=== PATIENT | male | born 1955 | race Caucasian/White ===

== ENCOUNTER 2016-08-26 16:06 | Inpatient (IN) | payer BC, OTHER ==
[~2016-08-26] VITALS: Ht 172.7 cm; Wt 90.7 kg
[~2016-08-26 16:06] MED LIST: CHERATUSSIN AC
[2016-08-26] MEDS ORDERED: ONDANSETRON INJ 2 MG/ML 2 ML VIAL IV STA (16:24)
[2016-08-26] MEDS ORDERED: PROMETHAZINE HCL INJ 6.25 MG in SODIUM CHLORIDE 0.9% 50ML 50 ML IV STA (16:24)
[2016-08-26] MEDS ORDERED: KETOROLAC TROMETHAMINE 30 MG/ML VIAL IV STA (16:24)
[2016-08-26] MEDS ORDERED: SODIUM CHLORIDE 0.9% 1000ML 2,000 ML IV STA (16:24)
[2016-08-26] MEDS: MoRPHine SULFATE 4 MG/ML 1 ML CARP\\VIAL IV PRN ×3 (16:34→21:26)
--- NOTE | 2016-08-26 16:35 | EMERGENCY ROOM VISIT NOTE ---
History Report prepared by Bartolo: Geovanny Juarez Under the Supervision of: Dr. Prince Massey M.D. First contact with patient: 16:20 Chief Complaint: REFERRED BY DOCTOR Stated Complaint: ABDOMINAL PAIN, VOMITING History of Present Illness The patient is a 61 year old male who presents to the Emergency Room with complaints of constant generalized abdominal pain beginning last night. He was seen at [facility] just prior to arrival for his symptoms and was referred to the ED for further evaluation. He also complains of vomiting which began this morning. The patient denies any diarrhea. He rates his pain as an 9/10 in severity. He has a history of similar symptoms occurring nine years ago, though the cause was not identified at the time. The patient notes that he has been around people with somewhat similar symptoms recently. He states that he ate "too much junk food" yesterday, but denies eating anything abnormal. The patient 's states that the patient's vomit appeared "like coffee-grounds". Source of History: patient Onset: last night Position: abdomen (generalized) Symptom Intensity: 9/10 Timing: constant Associated Symptoms: + vomiting, No diarrhea Review of Systems See HPI for pertinent positives & negatives. A total of 10 systems reviewed and were otherwise negative. Past Medical & Surgical Medical Problems: (1) Hyperlipemia Family History No pertinent family history stated. Social History Smoking Status: Former Smoker Marital Status: Current/Historical Medications No Active Prescriptions or Reported Meds Allergies Coded Allergies: Latex1 -Allergic Contact Dermititis (Verified Allergy, Unknown, RASH, 08/26) Physical Exam Vital Signs Date Time Temp Pulse Resp B/P Pulse Ox O2 Delivery O2 Flow Rate FiO2 08/26/16 18:49 56 20 115/68 97 Room Air 08/26/16 18:01 56 20 159/90 91 Room Air 08/26/16 16:16 67 18 164/102 95 Room Air Physical Exam GENERAL: Patient is in no acute distress. Vomit bag at bedside. HEENT: No acute trauma, normocephalic atraumatic, mucous membranes moist, no nasal congestion, no scleral icterus. NECK: No stridor, no adenopathy, no meningismus, trachea is midline. LUNGS: Clear to auscultation bilaterally, no wheeze, no rhonchi, breath sounds equal. HEART: Without murmurs gallops or rubs, regular rate and rhythm. ABDOMEN: Diffusely, moderately tender to palpation. Soft, bowel sounds positive , small nontender umbilical hernia, no peritonitis. EXTREMITIES: No cyanosis or edema, full range of motion of all the joints without pain or difficulty, no signs for acute trauma. NEUROLOGIC: Oriented x 3, no acute motor or sensory deficits, no focal weakness. SKIN: No rash, no jaundice, no diaphoresis. Medical Decision & Procedures ER Provider Diagnostic Interpretation: Gastric occult blood testing was negative. X ray results and stated below per my interpretation and radiologist interpretation. Other radiology results and stated below per my review and radiologist interpretation: PA CHEST WITH ABDOMINAL SERIES FINDINGS: A PA chest radiograph is correlated with chest CT dated 10/19/2010. The examination is degraded by patient rotation. The heart is enlarged. The mediastinal contour is within normal limits. The pulmonary vasculature is noncongested. There is chronic elevation of the right hemidiaphragm and bibasilar atelectasis. No airspace consolidation or large pleural effusion is identified. No pneumothorax is seen. The skeletal structures are osteopenic. The bony thorax is grossly intact. Supine and erect abdominal radiographs are correlated with abdominal ultrasound dated 10/18/2010. There is a nonobstructed abdominal bowel gas pattern. Moderate colonic fecal retention is observed. No intraperitoneal free air is seen. There are no abnormal abdominal calcifications. The lumbosacral spine and bony pelvis appear intact. IMPRESSION: 1. Cardiomegaly with no active disease in the chest. 2. Nonobstructed abdominal bowel gas pattern noting moderate colonic fecal retention. Electronically signed by: Prince Eastman M.D. ULTRASOUND RIGHT UPPER QUADRANT ABDOMEN FINDINGS: Liver: The liver is enlarged, measuring over 20 cm in length. Liver demonstrates heterogeneously increased echotexture consistent with severe hepatic steatosis. Note that this degrades acoustic penetration of the liver. Fatty sparing is present adjacent to gallbladder fossa. There is no intrahepatic biliary ductal dilatation. The main portal vein is patent. Gallbladder: Calcified shadowing gallstones are identified and there is biliary sludge. 1.2 cm stone is noted in the region of the gallbladder neck. There is no gallbladder wall thickening or pericholecystic fluid. A sonographic Khoury's sign is reportedly absent. The common bile duct measures up to 0.6 cm in diameter. Pancreas: Not well assessed due to overlying bowel gas. Right kidney: Survey images of the right kidney demonstrate normal size and echotexture. There is no hydronephrosis. Ascites: There is trace perihepatic fluid. IMPRESSION: 1. Hepatomegaly and severe hepatic steatosis. 2. Cholelithiasis and biliary sludge. There is no convincing sonographic evidence of acute cholecystitis. 3. Trace perihepatic fluid is noted. 4. Nonvisualization of the pancreas. Electronically signed by: Prince Eastman M.D. Laboratory Results 08/26/16 16:37 Red Blood Count 5.50, Mean Corpuscular Volume 90.2, Mean Corpuscular Hemoglobin 32.4, Mean Corpuscular Hemoglobin Concent 35.9, Mean Platelet Volume 9.2, Neutrophils (%) (Auto) 88.5, Lymphocytes (%) (Auto) 7.5, Monocytes (%) (Auto) 3.7, Eosinophils (%) (Auto) 0.0, Basophils (%) (Auto) 0.1, Neutrophils # (Auto) 10.96, Lymphocytes # (Auto) 0.93, Monocytes # (Auto) 0.46, Eosinophils # (Auto) 0.00, Basophils # (Auto) 0.01 08/26/16 16:37 Test 08/26/16 16:35 08/26/16 16:37 08/26/16 19:00 Gastric Fluid pH 2 Gastric Fluid Occult Blood NEG (NEG) White Blood Count 12.38 K/uL (4.8-10.8) Red Blood Count 5.50 M/uL (4.7-6.1) Hemoglobin 17.8 g/dL (14.0-18.0) Hematocrit 49.6 % (42-52) Mean Corpuscular Volume 90.2 fL (80-100) Mean Corpuscular Hemoglobin 32.4 pg (25-34) Mean Corpuscular Hemoglobin Concent 35.9 g/dl (32-36) Platelet Count 252 K/uL (130-400) Mean Platelet Volume 9.2 fL (7.4-10.4) Neutrophils (%) (Auto) 88.5 % Lymphocytes (%) (Auto) 7.5 % Monocytes (%) (Auto) 3.7 % Eosinophils (%) (Auto) 0.0 % Basophils (%) (Auto) 0.1 % Neutrophils # (Auto) 10.96 K/uL (1.4-6.5) Lymphocytes # (Auto) 0.93 K/uL (1.2-3.4) Monocytes # (Auto) 0.46 K/uL (0.11-0.59) Eosinophils # (Auto) 0.00 K/uL (0-0.5) Basophils # (Auto) 0.01 K/uL (0-0.2) RDW Standard Deviation 43.1 fL (36.4-46.3) RDW Coefficient of Variation 13.1 % (11.5-14.5) Immature Granulocyte % (Auto) 0.2 % Immature Granulocyte # (Auto) 0.02 K/uL (0.00-0.02) Anion Gap 10.0 mmol/L (3-11) Est Creatinine Clear Calc Drug Dose 77.1 ml/min Estimated GFR () 83.5 Estimated GFR (Non- 72.1 BUN/Creatinine Ratio 12.5 (10-20) Calcium Level 9.3 mg/dl (8.5-10.1) Total Bilirubin 1.6 mg/dl (0.2-1) Aspartate Amino Transf (AST/SGOT) 413 U/L (15-37) Alanine Aminotransferase (ALT/SGPT) 760 U/L (12-78) Alkaline Phosphatase 90 U/L (45-117) Total Protein 7.9 gm/dl (6.4-8.2) Albumin 4.3 gm/dl (3.4-5.0) Globulin 3.6 gm/dl (2.5-4.0) Albumin/Globulin Ratio 1.2 (0.9-2) Lipase 70178 U/L (73-393) Laboratory results reviewed by me. Medications Administered Medications (Trade) Dose Ordered Sig/Nbaila Route Start Time Stop Time Status Last Admin Dose Admin Sodium Chloride (Nss 1000ml) 2,000 ml @ 999 mls/hr Q2H1M STAT IV 08/26/16 16:24 08/26/16 18:24 DC 08/26/16 16:35 999 MLS/HR Ondansetron HCl (Zofran Inj) 4 mg NOW STAT IV 08/26/16 16:24 08/26/16 16:26 DC 08/26/16 16:34 4 MG Morphine Sulfate (MoRPHine SULFATE INJ) 4 mg Q30M PRN IV 08/26/16 16:30 09/09/16 16:29 08/26/16 18:12 4 MG Ketorolac Tromethamine 30 mg 30 mg NOW STAT IV 08/26/16 16:24 08/26/16 16:26 DC 08/26/16 16:35 30 MG Promethazine HCl/ Sodium Chloride (Phenergan Inj/ Nss 50ml) 50.25 ml @ 204 mls/hr NOW STAT IV 08/26/16 16:24 08/26/16 16:38 DC 08/26/16 16:51 204 MLS/HR ED Course 1622: The patient was evaluated in room A9B. A complete history and physical exam was performed. 1624: Ordered Promethazine HCl 6.25 mg/NSS 50.25 mL @ 204 mL/hr IV, Toradol Inj 30 mg IV, Zofran Inj 4 mg IV, Sodium Chloride 2000 ml @ 999 mls/hr IV, Morphine Sulfate 4 mg IV. 1643: Upon reexamination the patient is resting comfortably. I discussed results and treatment plan with the patient. He verbalizes agreement and understanding. 1948: The patient will be evaluated for further management. Medical Decision The patient is a 61 year old male who presents to the ED with complaints of generalized abdominal pain. Differential diagnoses considered include upper GI bleeding, dehydration, anemia, electrolyte imbalance, gastroenteritis, pancreatitis, biliary colic, esophageal tear, as well as other etiologies were considered. There is a mild leukocytosis which would be consistent with infection, no worrisome anemia. Gastric testing for blood as per the lab was negative. There was no evidence for renal failure or for significant electrolyte abnormally. A hepatitis and pancreatitis were noted. Obstruction series shows no bowel obstruction or free air, there was no pneumonia. Constipation was seen. Gallbladder ultrasound shows gallstones, there were no findings consistent with acute cholecystitis. The patient presents vomiting with diffuse abdominal pain. He received IV morphine, IV Zofran, IV Toradol and IV Phenergan. He was given IV saline. He feels markedly improved. The patient is resting comfortably. I did discuss this case with the on-call surgeon. The surgeon recommended a medical admission. I talked to the on-call medical physician. The patient will be hospitalized. I spoke with case management, I talked about my results with the patient and his significant other. The patient appears to have gallstone pancreatitis. Consults Time Called: 1940 Consulting Physician: Dr. Main -General Surgery Returned Call: 1942 Discussed the patient's case. Dr. Main recommends the patient be admitted to the medicine service. Additional Consults: Time Called: 1944 Consulted Physician: Dr. De La Vega -[facility] [place] Returned Call: 1948 Additional Comments: Discussed the patient's case. The patient will be evaluated for further management. Impression Primary Impression: Pancreatitis Additional Impressions: Biliary colic Vomiting Scribe Attestation The scribe's documentation has been prepared under my direction and personally reviewed by me in its entirety. I confirm that the note above accurately reflects all work, treatment, procedures, and medical decision making performed by me. Departure Information Dispostion Being Evaluated By Hospitalist Prescriptions No Active Prescriptions or Reported Meds Referrals No Doctor, Assigned (PCP) Patient Instructions My [facility] Problem Qualifiers
[2016-08-26 16:51] LABS: BASO % 0.1 %; BASO ABS # 0.01 K/uL (0-0.2); COMPLETE YES; HEMATOCRIT 49.6 % (42-52); IG% 0.2 %; LYMPH % 7.5 %; LYMPH ABS # 0.93 K/uL (1.2-3.4); MEAN CELL VOLUME 90.2 fL (80-100); MEAN CORPUSCULAR HEMOGLOBIN 32.4 pg (25-34); MEAN CORPUSCULAR HGB CONC 35.9 g/dl (32-36); MEAN PLATELET VOLUME 9.2 fL (7.4-10.4); MONO % 3.7 %; NEUT % 88.5 %; PLATELET COUNT 252 K/uL (130-400); WHITE BLOOD COUNT 12.38 K/uL (4.8-10.8)
[2016-08-26 16:54] LABS: GASTRIC OCCULT BLOOD NEG (NEG); GASTRIC OCCULT BLOOD PH 2
[2016-08-26 17:09] LABS: BUN/CREATININE RATIO 12.5 (10-20); CALCIUM 9.3 mg/dl (8.5-10.1); CREATININE 1.1 mg/dl (0.60-1.40); POTASSIUM 4.1 mmol/L (3.5-5.1)
[2016-08-26 17:12] LABS: ALB/GLOB RATIO 1.2 (0.9-2)
--- NOTE | 2016-08-26 17:36 | DIAGNOSTIC IMAGING REPORT ---
PA CHEST WITH ABDOMINAL SERIES CLINICAL HISTORY: Generalized abdominal pain. Nausea and vomiting. FINDINGS: A PA chest radiograph is correlated with chest CT dated 10/19/2010. The examination is degraded by patient rotation. The heart is enlarged. The mediastinal contour is within normal limits. The pulmonary vasculature is noncongested. There is chronic elevation of the right hemidiaphragm and bibasilar atelectasis. No airspace consolidation or large pleural effusion is identified. No pneumothorax is seen. The skeletal structures are osteopenic. The bony thorax is grossly intact. Supine and erect abdominal radiographs are correlated with abdominal ultrasound dated 10/18/2010. There is a nonobstructed abdominal bowel gas pattern. Moderate colonic fecal retention is observed. No intraperitoneal free air is seen. There are no abnormal abdominal calcifications. The lumbosacral spine and bony pelvis appear intact. IMPRESSION: 1. Cardiomegaly with no active disease in the chest. 2. Nonobstructed abdominal bowel gas pattern noting moderate colonic fecal retention. Electronically signed by: Prince Eastman M.D. 08/26/2016 5:34 PM Dictated Date/Time: 08/26/2016 5:32 PM
--- NOTE | 2016-08-26 19:38 | DIAGNOSTIC IMAGING REPORT ---
ULTRASOUND RIGHT UPPER QUADRANT ABDOMEN CLINICAL HISTORY: Hepatitis. Vomiting. COMPARISON STUDY: Abdominal radiograph dated 08/26/2016. Abdominal ultrasound dated 10/18/2010. TECHNIQUE: Real-time, grayscale, and color flow sonography of the right upper quadrant of the abdomen was performed. Images are reviewed in the transverse and longitudinal planes. FINDINGS: Liver: The liver is enlarged, measuring over 20 cm in length. Liver demonstrates heterogeneously increased echotexture consistent with severe hepatic steatosis. Note that this degrades acoustic penetration of the liver. Fatty sparing is present adjacent to gallbladder fossa. There is no intrahepatic biliary ductal dilatation. The main portal vein is patent. Gallbladder: Calcified shadowing gallstones are identified and there is biliary sludge. 1.2 cm stone is noted in the region of the gallbladder neck. There is no gallbladder wall thickening or pericholecystic fluid. A sonographic Khoury's sign is reportedly absent. The common bile duct measures up to 0.6 cm in diameter. Pancreas: Not well assessed due to overlying bowel gas. Right kidney: Survey images of the right kidney demonstrate normal size and echotexture. There is no hydronephrosis. Ascites: There is trace perihepatic fluid. IMPRESSION: 1. Hepatomegaly and severe hepatic steatosis. 2. Cholelithiasis and biliary sludge. There is no convincing sonographic evidence of acute cholecystitis. 3. Trace perihepatic fluid is noted. 4. Nonvisualization of the pancreas. Electronically signed by: Prince Eastman M.D. 08/26/2016 7:37 PM Dictated Date/Time: 08/26/2016 7:34 PM
[2016-08-26] MEDS ORDERED: PIPERACILLIN/TAZOBACTAM 4.5 GM/100ML D5W IV STA (19:49)
[2016-08-26] MEDS ORDERED: PROMETHAZINE HCL INJ 12.5 MG in SODIUM CHLORIDE 0.9% 50ML 50 ML IV PRN (20:00)
[2016-08-26] MEDS ORDERED: LORAZEPAM 2 MG/ML 1 ML VIAL IV PRN (20:00)
[2016-08-26] MEDS ORDERED: ZOLPIDEM TARTRATE 5 MG TAB PO PRN ×2 (20:00)
[2016-08-26] MEDS ORDERED: ACETAMINOPHEN 325 MG TAB PO PRN (20:00)
[2016-08-26] MEDS ORDERED: DiphenhydrAMINE HCL 50 MG/ML VIAL IV PRN (20:00)
[2016-08-26] MEDS ORDERED: LORAZEPAM 2 MG/ML 1 ML VIAL IV STA (20:04)
[2016-08-26 20:07] LABS: MANUAL MICROSCOPIC REQUIRED? YES; URINE APPEARANCE CLOUDY (CLEAR); URINE COLOR YELLOW; URINE NITRITE NEG (NEG); URINE PH 5.5 (4.5-7.5); URINE SPECIFIC GRAVITY >= 1.030 (1.000-1.030); UROBILINOGEN NEG (NEG)
[2016-08-26 20:13] LABS: REVIEW REQ? NO; URINE BILIRUBIN 1+ (NEG)
[2016-08-26] MEDS ORDERED: PROMETHAZINE HCL INJ 25 MG in SODIUM CHLORIDE 0.9% 50ML 50 ML IV PRN (20:15)
[2016-08-26 20:19] LABS: URINE RBC 0-4 /hpf (0-4)
[2016-08-26 20:20] LABS: URINE BACTERIA NEG (NEG); ZZUR CULT IF INDIC CLEAN CATCH NO
--- NOTE | 2016-08-26 20:53 | History and Physical ---
History & Physical Date & Time of Service: Aug 26, 2016 at 20:43 Chief Complaint: Abdominal Pain, Vomiting Primary Care Physician: No Doctor, Assigned History of Present Illness Source: patient, spouse The patient is a 61-year-old male who presents emergency department with continuous generalized abdominal pain that began on the morning of August 25. Because of worsening symptoms today, the patient went to [facility], who referred him to the emergency department for further evaluation. He began it additional symptoms of nausea and vomiting this morning, and has not been able to hold any food or liquids down during this time. His reports he had similar symptoms about 4-5 years ago, and thought there may been gallstones at that time, but they were not clearly identified as a cause. He has not had any recent travels. He has had some sick contacts recently. Initially thought to eat too much junk food yesterday, but does not report having eaten anything different than usual or eaten anything old or anything else that actually turgor is symptoms. Past Medical/Surgical History Medical Problems: (1) Hyperlipemia Status: Chronic Social History Smoking Status: Former Smoker Smokeless Tobacco Use: No Alcohol Use: none Drug Use: none Marital Status: Housing status: lives with family Occupational Status: employed Multi-Drug Resistant Organisms History of MDRO: No Allergies Coded Allergies: Latex1 -Allergic Contact Dermititis (Verified Allergy, Unknown, RASH, 08/26) Home Medications No Active Prescriptions or Reported Meds Review of Systems The patient denies chest pain, palpitations, shortness of breath, cough, lower extremity swelling, vision change, hearing change, sore throat, weight change, blood in urine or stool, dysuria, urinary frequency or urgency, lightheadedness , dizziness, headache, memory loss, rash, abnormal bruising or bleeding, imbalance, focal or generalized weakness, numbness or tingling in arms or legs, back or neck pain, night sweats, or allergy symptoms. The review of systems is otherwise negative other than for that already noted above, and at least 10 systems have been reviewed. Physical Exam Vital Signs Date Time Temp Pulse Resp B/P Pulse Ox O2 Delivery O2 Flow Rate FiO2 08/26/16 18:49 56 20 115/68 97 Room Air 08/26/16 18:01 56 20 159/90 91 Room Air 08/26/16 16:16 67 18 164/102 95 Room Air The patient is awake, well-developed and adequately nourished, alert and oriented 3, normocephalic and atraumatic, lying in bed and in mild acute distress secondary to abdominal discomfort. HEENT--PERRL, EOMI, mucous membranes and oropharynx dry. Neck--supple, no JVD or bruits, thyroid normal, trachea midline, no adenopathy. Heart--normal S1 and S2, no extra beats, no murmurs, rubs or gallops. Lungs--clear bilaterally, no respiratory distress, no accessory muscle use. Abdomen--normal bowel sounds and soft, generalized tenderness. Extremities--no cyanosis, clubbing or edema. There are good distal pulses b/l. Dermatologic--normal skin turgor, normal color, warm and dry, no abnormal lymph nodes, no rash. Neurologic--cranial nerves II through XII grossly intact, motor and sensory examination normal. Rheumatologic--normal range of motion, nontender, muscles and joints. Psychiatric--normal affect. Diagnostics Laboratory Results Results Past 24 Hours Test 08/26/16 16:35 08/26/16 16:37 08/26/16 19:00 Range/Units Gastric Fluid pH 2 Gastric Fluid Occult Blood NEG NEG White Blood Count 12.38 4.8-10.8 K/uL Red Blood Count 5.50 4.7-6.1 M/uL Hemoglobin 17.8 14.0-18.0 g/dL Hematocrit 49.6 42-52 % Mean Corpuscular Volume 90.2 80-100 fL Mean Corpuscular Hemoglobin 32.4 25-34 pg Mean Corpuscular Hemoglobin Concent 35.9 32-36 g/dl Platelet Count 252 130-400 K/uL Mean Platelet Volume 9.2 7.4-10.4 fL Neutrophils (%) (Auto) 88.5 % Lymphocytes (%) (Auto) 7.5 % Monocytes (%) (Auto) 3.7 % Eosinophils (%) (Auto) 0.0 % Basophils (%) (Auto) 0.1 % Neutrophils # (Auto) 10.96 1.4-6.5 K/uL Lymphocytes # (Auto) 0.93 1.2-3.4 K/uL Monocytes # (Auto) 0.46 0.11-0.59 K/uL Eosinophils # (Auto) 0.00 0-0.5 K/uL Basophils # (Auto) 0.01 0-0.2 K/uL RDW Standard Deviation 43.1 36.4-46.3 fL RDW Coefficient of Variation 13.1 11.5-14.5 % Immature Granulocyte % (Auto) 0.2 % Immature Granulocyte # (Auto) 0.02 0.00-0.02 K/uL Sodium Level 141 136-145 mmol/L Potassium Level 4.1 3.5-5.1 mmol/L Chloride Level 102 98-107 mmol/L Carbon Dioxide Level 29 21-32 mmol/L Anion Gap 10.0 3-11 mmol/L Blood Urea Nitrogen 14 7-18 mg/dl Creatinine 1.10 0.60-1.40 mg/dl Est Creatinine Clear Calc Drug Dose 77.1 ml/min Estimated GFR () 83.5 Estimated GFR (Non- 72.1 BUN/Creatinine Ratio 12.5 10-20 Random Glucose 192 70-99 mg/dl Calcium Level 9.3 8.5-10.1 mg/dl Total Bilirubin 1.6 0.2-1 mg/dl Aspartate Amino Transf (AST/SGOT) 413 15-37 U/L Alanine Aminotransferase (ALT/SGPT) 760 12-78 U/L Alkaline Phosphatase 90 45-117 U/L Total Protein 7.9 6.4-8.2 gm/dl Albumin 4.3 3.4-5.0 gm/dl Globulin 3.6 2.5-4.0 gm/dl Albumin/Globulin Ratio 1.2 0.9-2 Amylase Level 1146 25-115 U/L Lipase 86913 73-393 U/L Urine Color YELLOW Urine Appearance CLOUDY CLEAR Urine pH 5.5 4.5-7.5 Urine Specific [place] >= 1.030 1.000-1.030 Urine Protein TRACE NEG Urine Glucose (UA) TRACE NEG Urine Ketones NEG NEG Urine Occult Blood NEG NEG Urine Nitrite NEG NEG Urine Bilirubin 1+ NEG Urine Urobilinogen NEG NEG Urine Leukocyte Esterase NEG NEG Urine RBC 0-4 0-4 /hpf Urine WBC 1-5 0-5 /hpf Urine Epithelial Cells >30 0-5 /lpf Urine Bacteria NEG NEG Urine Hyaline Casts 5-10 0-5 /lpf Diagnostic Radiology Patient Name: CATHY RODRIGUEZ Jing Unit Number: [id number] Dictated: 08/26/161731 Transcribed: 08/26/161731 EV Printed Date/Time: [~ rep prt dt]/[~ rep prt tm] [~ rep ct labl] - [~ rep ct ivnm] [facility] [place] [address] Dictated: 08/26/161731 Transcribed: 08/26/161731 EV Printed Date/Time: [~ rep prt dt]/[~ rep prt tm] [~ rep ct labl] - [~ rep ct ivnm] PA CHEST WITH ABDOMINAL SERIES CLINICAL HISTORY: Generalized abdominal pain. Nausea and vomiting. FINDINGS: A PA chest radiograph is correlated with chest CT dated 10/19/2010. The examination is degraded by patient rotation. The heart is enlarged. The mediastinal contour is within normal limits. The pulmonary vasculature is noncongested. There is chronic elevation of the right hemidiaphragm and bibasilar atelectasis. No airspace consolidation or large pleural effusion is identified. No pneumothorax is seen. The skeletal structures are osteopenic. The bony thorax is grossly intact. Supine and erect abdominal radiographs are correlated with abdominal ultrasound dated 10/18/2010. There is a nonobstructed abdominal bowel gas pattern. Moderate colonic fecal retention is observed. No intraperitoneal free air is seen. There are no abnormal abdominal calcifications. The lumbosacral spine and bony pelvis appear intact. IMPRESSION: 1. Cardiomegaly with no active disease in the chest. 2. Nonobstructed abdominal bowel gas pattern noting moderate colonic fecal retention. Electronically signed by: Prince Eastman M.D. 08/26/2016 5:34 PM Dictated Date/Time: 08/26/2016 5:32 PM The status of this report is Signed. Draft = Not yet reviewed or approved by Radiologist. Signed = Reviewed and approved by Radiologist. <AttendingPhy></AttendingPhy> <FamilyPhy>No Doctor, Assigned</FamilyPhy> < PrimaryPhy>No Doctor, Assigned</PrimaryPhy> <UnitNumber>[id number]</UnitNumber> <VisitNumber>[id number]</VisitNumber> <PatientName>CATHY RODRIGUEZ</ PatientName> <DateOfBirth>1955</DateOfBirth> <Location>[facility]</Location> < ServiceDate>08/26/16</ServiceDate> <MNE>ESINDI</MNE> <OrderingPhy>Prince Massey M.D.</OrderingPhy> <OrderingPhyMNE>f rep ord dr bronson</OrderingPhyMNE> < DictatingPhyMNE>f rep dict dr bronson</DictatingPhyMNE> <CCListMNE>f rep ct mne</ CCListMNE> <AdmittingPhyMNE>f pt admit dr bronson</AdmittingPhyMNE> <AttendingPhyMNE >f pt attend dr bronson</AttendingPhyMNE> <ConsultingPhyMNE>f pt consult dr bronson</ConsultingPhyMNE> <FamilyPhyMNE>f pt fam dr bronson</FamilyPhyMNE> <OtherPhyMNE>f pt other dr bronson</OtherPhyMNE> < PrimaryPhyMNE>f pt prim care dr bronson</PrimaryPhyMNE> <ReferringPhyMNE>f pt referring dr bronson</ReferringPhyMNE> Patient Name: CATHY RODRIGUEZ Unit Number: [id number] Dictated: 08/26/161933 Transcribed: 08/26/161933 EV Printed Date/Time: [~ rep prt dt]/[~ rep prt tm] [~ rep ct labl] - [~ rep ct ivnm] [facility] Radiology Department [place] [id number] Dictated: 08/26/161933 Transcribed: 08/26/161933 EV Printed Date/Time: [~ rep prt dt]/[~ rep prt tm] [~ rep ct labl] - [~ rep ct ivnm] ULTRASOUND RIGHT UPPER QUADRANT ABDOMEN CLINICAL HISTORY: Hepatitis. Vomiting. COMPARISON STUDY: Abdominal radiograph dated 08/26/2016. Abdominal ultrasound dated 10/18/2010. TECHNIQUE: Real-time, grayscale, and color flow sonography of the right upper quadrant of the abdomen was performed. Images are reviewed in the transverse and longitudinal planes. FINDINGS: Liver: The liver is enlarged, measuring over 20 cm in length. Liver demonstrates heterogeneously increased echotexture consistent with severe hepatic steatosis. Note that this degrades acoustic penetration of the liver. Fatty sparing is present adjacent to gallbladder fossa. There is no intrahepatic biliary ductal dilatation. The main portal vein is patent. Gallbladder: Calcified shadowing gallstones are identified and there is biliary sludge. 1.2 cm stone is noted in the region of the gallbladder neck. There is no gallbladder wall thickening or pericholecystic fluid. A sonographic Khoury's sign is reportedly absent. The common bile duct measures up to 0.6 cm in diameter. Pancreas: Not well assessed due to overlying bowel gas. Right kidney: Survey images of the right kidney demonstrate normal size and echotexture. There is no hydronephrosis. Ascites: There is trace perihepatic fluid. IMPRESSION: 1. Hepatomegaly and severe hepatic steatosis. 2. Cholelithiasis and biliary sludge. There is no convincing sonographic evidence of acute cholecystitis. 3. Trace perihepatic fluid is noted. 4. Nonvisualization of the pancreas. Electronically signed by: Prince Eastman M.D. 08/26/2016 7:37 PM Dictated Date/Time: 08/26/2016 7:34 PM The status of this report is Signed. Draft = Not yet reviewed or approved by Radiologist. Signed = Reviewed and approved by Radiologist. <AttendingPhy></AttendingPhy> <FamilyPhy>No Doctor, Assigned</FamilyPhy> < PrimaryPhy>No Doctor, Assigned</PrimaryPhy> <UnitNumber>[id number]</UnitNumber> <VisitNumber>[id number]</VisitNumber> <PatientName>CATHY RODRIGUEZ</ PatientName> <DateOfBirth>1955</DateOfBirth> <Location>[facility]</Location> < ServiceDate>08/26/16</ServiceDate> <MNE>ESINDI</MNE> <OrderingPhy>Prince Massey M.D.</OrderingPhy> <OrderingPhyMNE>f rep ord dr bronson</OrderingPhyMNE> < DictatingPhyMNE>f rep dict dr bronson</DictatingPhyMNE> <CCListMNE>f rep ct juane</ CCListMNE> <AdmittingPhyMNE>f pt admit dr bronson</AdmittingPhyMNE> <AttendingPhyMNE >f pt attend dr bronson</AttendingPhyMNE> <ConsultingPhyMNE>f pt consult dr bronson</ConsultingPhyMNE> <FamilyPhyMNE>f pt fam dr bronson</FamilyPhyMNE> <OtherPhyMNE>f pt other dr bronson</OtherPhyMNE> < PrimaryPhyMNE>f pt prim care dr bronson</PrimaryPhyMNE> <ReferringPhyMNE>f pt referring dr bronson</ReferringPhyMNE> Impression Assessment and Plan Gallstone pancreatitis--patient be admitted to the medical surgical floor in nothing by mouth status. Will be placed on Zosyn 4.5 g IV now, then 3.375 g IV every 8 hours, Zofran 4 mg IV every 6 hours when necessary, Phenergan 25 mg IV every 6 hours when necessary, pantoprazole 40 mg IV daily, normal saline with potassium chloride 20 mEq at 100 ML's per hour. Morphine sulfate 2-4 mg IV every 4 hours when necessary pain. We'll follow serial CBCD, CMP, and amylase and lipase. An MRCP is ordered and will be done tonight. Surgery will be consulted to see patient. Level of Care Med/Surg Advanced Directives Existing Advance Directive: No Existing Living Will: No Existing Power of Construction Assistant: No Resuscitation Status FULL RESUSCITATION VTE Prophylaxis VTE Risk Assessment Done? Y/N: Yes Risk Level: Moderate Given or contraindicated: SCD's Social Service Consult None Apply
[2016-08-26] MEDS ORDERED: PIPERACILL/TAZOBAC CONSULT ACTIVE PRN (21:45)
[2016-08-26 22:35] VITALS: BP 157/81; TEMP 36.8; O2SAT 96; Ht 172.7 cm; Wt 90.7 kg
[2016-08-26 22:40] VITALS: BP 157/81; PULSE 66; TEMP 36.8; O2SAT 91
--- NOTE | 2016-08-26 22:49 | DIAGNOSTIC IMAGING REPORT ---
MRCP CLINICAL HISTORY: Hepatitis. COMPARISON STUDY: Abdominal ultrasound dated 08/26/2016. TECHNIQUE: Abdominal MRCP is performed utilizing various T2-weighted sequences in the axial and coronal planes. IV contrast was not administered for this examination. 3-D reformats are created and assessed. FINDINGS: Gallstones are identified. The largest stone is seen in the region of the gallbladder neck. The gallbladder is distended. There is no gallbladder wall thickening or pericholecystic fluid. There is no definitive evidence of acute cholecystitis. There is no intrahepatic biliary ductal dilatation. The common bile duct is normal in caliber, measuring up to 5 mm. There are no filling defects to indicate choledocholithiasis. The pancreatic duct is normal as visualized. The liver is enlarged measuring 19 cm in length. There is trace perihepatic free fluid. The pancreas appears enlarged and markedly edematous. There is significant peripancreatic fluid. The appearance is consistent with acute pancreatitis. The spleen is normal as imaged. The kidneys are normal in size and without hydronephrosis. The adrenal glands are normal as visualized. A 12 mm cyst is noted in the left lobe of the liver. Mild wall thickening is suggested in the duodenum, likely related to adjacent pancreatitis. IMPRESSION: 1. Findings are consistent with severe acute pancreatitis. 2. Cholelithiasis without convincing evidence of acute cholecystitis. 3. The liver appears enlarged and there is trace perihepatic ascites. 4. There is no intrahepatic or extrahepatic biliary ductal dilatation. There is no choledocholithiasis. Dictated: 08/26/2016 10:33 PM Transcribed: 08/26/2016 10:49 PM [email or web address] Electronically signed by: Prince Eastman M.D. 08/26/2016 10:50 PM Dictated Date/Time: 08/26/2016 10:33 PM
[2016-08-26] MEDS: NSS + 20MEQ KCL 1000ML 1,000 ML IV SCH (23:09)
[2016-08-27] MEDS: MoRPHine SULFATE 2 MG/ML CARP IV PRN ×4 (00:40→19:19)
[2016-08-27] MEDS ORDERED: PIPERACILL/TAZOBAC IV 3.375 GM in DEXTROSE 5% 100ML 100 ML IV SCH (02:00)
[2016-08-27 05:36] LABS: BASO % 0.1 %; BASO ABS # 0.01 K/uL (0-0.2); COMPLETE YES; HEMATOCRIT 44.7 % (42-52); IG% 0.3 %; LYMPH % 5.4 %; LYMPH ABS # 0.77 K/uL (1.2-3.4); MEAN CELL VOLUME 90.3 fL (80-100); MEAN CORPUSCULAR HEMOGLOBIN 31.1 pg (25-34); MEAN CORPUSCULAR HGB CONC 34.5 g/dl (32-36); MEAN PLATELET VOLUME 9.1 fL (7.4-10.4); MONO % 5.4 %; NEUT % 88.8 %; PLATELET COUNT 204 K/uL (130-400); RED BLOOD COUNT 4.95 M/uL (4.7-6.1); WHITE BLOOD COUNT 14.25 K/uL (4.8-10.8)
[2016-08-27 05:50] LABS: INR 1.1 (0.9-1.1); PROTHROMBIN TIME (PATIENT) 11.8 SECONDS (9.0-12.0)
[2016-08-27 06:10] LABS: BUN/CREATININE RATIO 11.2 (10-20); CALCIUM 8.1 mg/dl (8.5-10.1); CREATININE 1.1 mg/dl (0.60-1.40); MAGNESIUM 1.9 mg/dl (1.8-2.4); POTASSIUM 3.7 mmol/L (3.5-5.1)
[2016-08-27 07:48] VITALS: BP 166/76; PULSE 94; TEMP 36.8; O2SAT 94
[2016-08-27] MEDS: NSS + 20MEQ KCL 1000ML 1,000 ML IV SCH ×4 (08:28→23:28)
[2016-08-27] MEDS: PANTOprazole INJ 40 MG in SYRINGE 0 ML IV SCH (11:05)
--- NOTE | 2016-08-27 11:44 | Progress Note ---
Subjective Date of Service: Aug 27, 2016. Subjective Pt evaluation today including: conversation w/ patient, conversation w/ family , physical exam, lab review, review of studies, review of inpatient medication list Pain: epigastric, still moderate to severe PO Intake: NPO Voiding: no voiding problems patient started with the epigastric pain yesterday at 1pm, got more severe with nausea feels slightly better this morning, very tired, no appetite denies feeling nauseated, last BM was Sunday and was normal reviewed results of MRCP and labs this AM significant other updated at the bedside Problem List Medical Problems: (1) Biliary colic Status: Acute (2) Pancreatitis Status: Acute (3) Vomiting Status: Acute Review of Systems Constitutional: + fatigue, + weakness Abdomen: + nausea, + pain (epigastric, severe), + problem reported (no appetite ) All Other Systems: Reviewed and Negative Medications Current Inpatient Medications Medications (Trade) Dose Ordered Sig/Nabila Route Start Time Stop Time Status Last Admin Dose Admin Acetaminophen (Tylenol Tab) 650 mg Q4H PRN PO 08/26/16 20:00 09/25/16 19:59 Zolpidem Tartrate (Ambien Tab) 5 mg HSZ PRN PO 08/26/16 20:00 09/25/16 19:59 Lorazepam (Ativan Inj) 0.5 mg Q4H PRN IV 08/26/16 20:00 09/25/16 19:59 Diphenhydramine HCl 25 mg 25 mg Q4H PRN IV 08/26/16 20:00 09/25/16 19:59 Promethazine HCl/ Sodium Chloride (Phenergan Inj/ Nss 50ml) 50.5 ml @ 202 mls/hr Q4H PRN IV 08/26/16 20:00 09/25/16 19:59 Ondansetron HCl (Zofran Inj) 4 mg Q6H PRN IV 08/26/16 20:00 09/25/16 19:59 Morphine Sulfate (MoRPHine SULFATE INJ) 2 mg Q2H PRN IV 08/26/16 20:00 09/09/16 19:59 08/27/16 00:40 2 MG Morphine Sulfate 4 mg 4 mg Q2H PRN IV 08/26/16 20:00 09/09/16 19:59 Potassium Chloride/Sodium Chloride 1,000 ml @ 200 mls/hr Q5H IV 08/26/16 23:00 09/26/16 22:59 08/27/16 08:28 200 MLS/HR Pantoprazole Sodium 40 mg/ Syringe 10 ml @ 5 mls/min DAILY@11 IV 08/27/16 11:00 09/26/16 10:59 08/27/16 11:05 5 MLS/MIN Promethazine HCl/ Sodium Chloride (Phenergan Inj/ Nss 50ml) 51 ml @ 204 mls/hr Q6H PRN IV 08/26/16 20:15 09/25/16 20:14 08/27/16 01:19 204 MLS/HR Objective Vital Signs Date Time Temp Pulse Resp B/P Pulse Ox O2 Delivery O2 Flow Rate FiO2 08/27/16 07:48 36.8 94 16 166/76 94 Room Air 08/27/16 07:33 Room Air 08/26/16 22:40 36.8 66 16 157/81 91 Room Air 08/26/16 22:35 36.8 16 157/81 96 Room Air 08/26/16 20:45 60 20 140/82 96 Room Air 08/26/16 18:49 56 20 115/68 97 Room Air 08/26/16 18:01 56 20 159/90 91 Room Air 08/26/16 16:16 67 18 164/102 95 Room Air Physical Exam General Appearance: WD/WN, no apparent distress Eyes: normal inspection, EOMI, sclerae normal ENT: normal ENT inspection, hearing grossly normal, pharynx normal Neck: supple, no adenopathy, no JVD, trachea midline Respiratory/Chest: chest non-tender, lungs clear, normal breath sounds, no respiratory distress, no accessory muscle use Cardiovascular: regular rate, rhythm, no edema, no gallop, no JVD, no murmur Abdomen: soft, no organomegaly, + abnormal bowel sounds (hypoactive), + tenderness (epigastric, no rigidity or rebound, no bruising) Extremities: normal range of motion, non-tender, normal inspection, no pedal edema, no calf tenderness 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: workforce manager II-XII nml as tested, no motor/sensory deficits, alert, normal mood/affect, oriented x 3 Skin: normal color, warm/dry, no rash Laboratory Results Last 24 Hours Test 08/26/16 16:35 08/26/16 16:37 08/26/16 19:00 08/27/16 05:05 Gastric Fluid pH 2 Gastric Fluid Occult Blood NEG White Blood Count 12.38 K/uL 14.25 K/uL Red Blood Count 5.50 M/uL 4.95 M/uL Hemoglobin 17.8 g/dL 15.4 g/dL Hematocrit 49.6 % 44.7 % Mean Corpuscular Volume 90.2 fL 90.3 fL Mean Corpuscular Hemoglobin 32.4 pg 31.1 pg Mean Corpuscular Hemoglobin Concent 35.9 g/dl 34.5 g/dl Platelet Count 252 K/uL 204 K/uL Mean Platelet Volume 9.2 fL 9.1 fL Neutrophils (%) (Auto) 88.5 % 88.8 % Lymphocytes (%) (Auto) 7.5 % 5.4 % Monocytes (%) (Auto) 3.7 % 5.4 % Eosinophils (%) (Auto) 0.0 % 0.0 % Basophils (%) (Auto) 0.1 % 0.1 % Neutrophils # (Auto) 10.96 K/uL 12.66 K/uL Lymphocytes # (Auto) 0.93 K/uL 0.77 K/uL Monocytes # (Auto) 0.46 K/uL 0.77 K/uL Eosinophils # (Auto) 0.00 K/uL 0.00 K/uL Basophils # (Auto) 0.01 K/uL 0.01 K/uL RDW Standard Deviation 43.1 fL 43.6 fL RDW Coefficient of Variation 13.1 % 13.3 % Immature Granulocyte % (Auto) 0.2 % 0.3 % Immature Granulocyte # (Auto) 0.02 K/uL 0.04 K/uL Sodium Level 141 mmol/L 143 mmol/L Potassium Level 4.1 mmol/L 3.7 mmol/L Chloride Level 102 mmol/L 107 mmol/L Carbon Dioxide Level 29 mmol/L 27 mmol/L Anion Gap 10.0 mmol/L 9.0 mmol/L Blood Urea Nitrogen 14 mg/dl 12 mg/dl Creatinine 1.10 mg/dl 1.10 mg/dl Est Creatinine Clear Calc Drug Dose 77.1 ml/min 77.1 ml/min Estimated GFR () 83.5 83.5 Estimated GFR (Non- 72.1 72.1 BUN/Creatinine Ratio 12.5 11.2 Random Glucose 192 mg/dl 139 mg/dl Calcium Level 9.3 mg/dl 8.1 mg/dl Total Bilirubin 1.6 mg/dl 0.9 mg/dl Aspartate Amino Transf (AST/SGOT) 413 U/L 136 U/L Alanine Aminotransferase (ALT/SGPT) 760 U/L 451 U/L Alkaline Phosphatase 90 U/L 72 U/L Total Protein 7.9 gm/dl 6.6 gm/dl Albumin 4.3 gm/dl 3.6 gm/dl Globulin 3.6 gm/dl Albumin/Globulin Ratio 1.2 Amylase Level 1146 U/L 568 U/L Lipase 95564 U/L 4944 U/L Urine Color YELLOW Urine Appearance CLOUDY Urine pH 5.5 Urine Specific [place] >= 1.030 Urine Protein TRACE Urine Glucose (UA) TRACE Urine Ketones NEG Urine Occult Blood NEG Urine Nitrite NEG Urine Bilirubin 1+ Urine Urobilinogen NEG Urine Leukocyte Esterase NEG Urine RBC 0-4 /hpf Urine WBC 1-5 /hpf Urine Epithelial Cells >30 /lpf Urine Bacteria NEG Urine Hyaline Casts 5-10 /lpf Prothrombin Time 11.8 SECONDS Prothromb Time International Ratio 1.1 Activated Partial Thromboplast Time 26.1 SECONDS Partial Thromboplastin Ratio 1.0 Magnesium Level 1.9 mg/dl Direct Bilirubin 0.3 mg/dl Assessment and Plan 61 yo male with acute gall stone pancreatitis - Acute gallstone pancreatitis: improving slowly, lipase and transaminases trending down MRCP confirmed gall stones and sludge in gall bladder, no choledocholithiasis , no cholecystitis BUN going down which is good prognosis increase NSS to 200cc/hr, Morphine PRN for pain, keep NPO today, very tender on exam and no appetite stop Zosyn, no evidence of bacterial infection continue Protonix general surgery consulted to discuss timing of cholecystectomy repeat CBC and CMP and lipase in the morning - DVT prophylaxis: Lovenox Plan: NPO, fluids, surgery consult, explained that he will be here a few days until pancreatitis resolves and he is tolerating diet
[2016-08-27 15:10] VITALS: BP 168/89; PULSE 101; TEMP 37.6; O2SAT 92
[2016-08-27] MEDS: ONDANSETRON INJ 2 MG/ML 2 ML VIAL IV PRN ×2 (15:56→22:14)
[2016-08-27] MEDS: MoRPHine SULFATE 4 MG/ML 1 ML CARP\\VIAL IV PRN (22:15)
[2016-08-27 23:55] VITALS: BP 158/64; PULSE 99; TEMP 37.2; O2SAT 92
[2016-08-28] MEDS: MoRPHine SULFATE 4 MG/ML 1 ML CARP\\VIAL IV PRN ×4 (03:40→22:31)
[2016-08-28] MEDS: NSS + 20MEQ KCL 1000ML 1,000 ML IV SCH ×4 (04:46→19:19)
[2016-08-28 06:20] LABS: BASO % 0.1 %; BASO ABS # 0.01 K/uL (0-0.2); COMPLETE YES; HEMATOCRIT 40.7 % (42-52); IG% 0.3 %; LYMPH % 7.7 %; LYMPH ABS # 1.36 K/uL (1.2-3.4); MEAN CORPUSCULAR HEMOGLOBIN 31.4 pg (25-34); MEAN CORPUSCULAR HGB CONC 34.9 g/dl (32-36); MEAN PLATELET VOLUME 9.1 fL (7.4-10.4); MONO % 7.2 %; NEUT % 84.7 %; PLATELET COUNT 186 K/uL (130-400); RED BLOOD COUNT 4.52 M/uL (4.7-6.1); WHITE BLOOD COUNT 17.72 K/uL (4.8-10.8)
[2016-08-28 06:50] LABS: CALCIUM 8.3 mg/dl (8.5-10.1); CREATININE 0.88 mg/dl (0.60-1.40); MAGNESIUM 2.1 mg/dl (1.8-2.4); POTASSIUM 3.9 mmol/L (3.5-5.1)
[2016-08-28] MEDS: ONDANSETRON INJ 2 MG/ML 2 ML VIAL IV PRN (07:29)
[2016-08-28 08:18] VITALS: BP 138/70; PULSE 91; TEMP 36.9; O2SAT 94
[2016-08-28] MEDS: ENOXAPARIN 40 MG/0.4 ML SYR SQ SCH (09:03)
--- NOTE | 2016-08-28 09:41 | Progress Note ---
Subjective Date of Service: Aug 28, 2016. Subjective Pt evaluation today including: conversation w/ patient, conversation w/ family , physical exam, chart review, lab review, review of studies, review of inpatient medication list Abdominal pain is generally getting better, however still has significant pain which required IV pain medication, feeling nausea, has no bowel movement for 3 days Problem List Medical Problems: (1) Biliary colic Status: Acute (2) Pancreatitis Status: Acute (3) Vomiting Status: Acute Review of Systems Constitutional: + fatigue, + weakness, No chills, No fever, No problem reported , No sweats, No weight loss Eyes: No diplopia, No discharge, No eye pain, No redness, No worsening of vision ENT: No dental problems, No hearing loss, No nasal symptoms, No sore throat, No tinnitus, No trouble swallowing, No unusual epistaxis Respiratory: No cough, No dyspnea at rest, No dyspnea on exertion, No hemoptysis, No shortness of breath, No sputum, No wheezing Cardiac: No PND, No chest pain, No claudication, No edema, No orthopnea, No palpitations Abdomen: + constipation, + pain, No diarrhea, No nausea, No vomiting Musculoskeletal: No calf pain, No joint pain, No muscle pain, No swelling Male : No dysuria, No hematuria, No incontinence, No nocturia more than once/ night, No slowing stream, No urinary frequency Neurologic: No balance problems, No memory loss, No numbness/tingling, No paralysis, No vertigo, No weakness Psychiatric: No anhedonism, No anxiety, No depression symptoms, No insomnia, No substance abuse Heme: No abnormal bleeding/bruising, No clotting problems, No night sweats, No swollen lymph nodes Endo: No excessive thirst, No excessive urination, No fatigue Skin: No bleeding, No color change, No itch, No new/changing skin lesions, No rash Objective Vital Signs Date Time Temp Pulse Resp B/P Pulse Ox O2 Delivery O2 Flow Rate FiO2 08/28/16 08:18 36.9 91 18 138/70 94 Room Air 08/28/16 07:30 Room Air 08/27/16 23:55 37.2 99 16 158/64 92 Room Air 08/27/16 19:15 Room Air 08/27/16 15:57 Room Air 08/27/16 15:10 37.6 101 18 168/89 92 Room Air Physical Exam General Appearance: WD/WN, no apparent distress Eyes: normal inspection, PERRL, EOMI, sclerae normal ENT: normal ENT inspection, hearing grossly normal, pharynx normal Neck: supple, no adenopathy, thyroid normal, no JVD, no carotid bruits, trachea midline Respiratory/Chest: chest non-tender, lungs clear, normal breath sounds, no respiratory distress, no accessory muscle use Cardiovascular: regular rate, rhythm, no edema, no gallop, no JVD, no murmur Abdomen: normal bowel sounds, non tender, soft, no organomegaly, no pulsatile mass, + tenderness (in mid abdomen) Extremities: normal range of motion, non-tender, normal inspection, no pedal edema, no calf tenderness, normal capillary refill, pelvis stable 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, no motor/sensory deficits, alert, normal mood/affect, oriented x 3 Skin: normal color, warm/dry, no rash Lymphatic: no adenopathy Laboratory Results Last 24 Hours Test 08/28/16 05:20 White Blood Count 17.72 K/uL Red Blood Count 4.52 M/uL Hemoglobin 14.2 g/dL Hematocrit 40.7 % Mean Corpuscular Volume 90.0 fL Mean Corpuscular Hemoglobin 31.4 pg Mean Corpuscular Hemoglobin Concent 34.9 g/dl Platelet Count 186 K/uL Mean Platelet Volume 9.1 fL Neutrophils (%) (Auto) 84.7 % Lymphocytes (%) (Auto) 7.7 % Monocytes (%) (Auto) 7.2 % Eosinophils (%) (Auto) 0.0 % Basophils (%) (Auto) 0.1 % Neutrophils # (Auto) 15.01 K/uL Lymphocytes # (Auto) 1.36 K/uL Monocytes # (Auto) 1.28 K/uL Eosinophils # (Auto) 0.00 K/uL Basophils # (Auto) 0.01 K/uL RDW Standard Deviation 44.7 fL RDW Coefficient of Variation 13.4 % Immature Granulocyte % (Auto) 0.3 % Immature Granulocyte # (Auto) 0.06 K/uL Sodium Level 144 mmol/L Potassium Level 3.9 mmol/L Chloride Level 110 mmol/L Carbon Dioxide Level 24 mmol/L Anion Gap 10.0 mmol/L Blood Urea Nitrogen 11 mg/dl Creatinine 0.88 mg/dl Est Creatinine Clear Calc Drug Dose 96.4 ml/min Estimated GFR () 107.5 Estimated GFR (Non- 92.7 BUN/Creatinine Ratio 13.0 Random Glucose 101 mg/dl Calcium Level 8.3 mg/dl Magnesium Level 2.1 mg/dl Total Bilirubin 0.9 mg/dl Direct Bilirubin 0.2 mg/dl Aspartate Amino Transf (AST/SGOT) 44 U/L Alanine Aminotransferase (ALT/SGPT) 243 U/L Alkaline Phosphatase 59 U/L Total Protein 6.7 gm/dl Albumin 3.0 gm/dl Lipase 1352 U/L Assessment and Plan 61 yo male with acute gall stone pancreatitis admitted on 08/26/19 17 - Acute gallstone pancreatitis: improving slowly, lipase and transaminases trending down MRCP confirmed gall stones and sludge in gall bladder, no choledocholithiasis , no cholecystitis results in below: 1. Findings are consistent with severe acute pancreatitis. 2. Cholelithiasis without convincing evidence of acute cholecystitis. 3. The liver appears enlarged and there is trace perihepatic ascites. 4. There is no intrahepatic or extrahepatic biliary ductal dilatation. There is no choledocholithiasis. We'll continue NSS to 200cc/hr, Morphine PRN for pain, keep NPO , will not advanced diet because still complaining of pain and required IV pain medicine Was on Zosyn, which was stopped yesterday because no evidence of bacterial infection continue Protonix general surgery consulted to discuss timing of cholecystectomy, will place the consultation, will also request GI consult because of abdominal pain not improving repeat CBC and CMP and lipase in the morning - DVT prophylaxis: Lovenox Plan: NPO, fluids, surgery and GI consult, explained that he will be here a few days until pancreatitis resolves and he is tolerating diet Continued [facility] stay due to: multiple IV medications needed Discharge planning: home
[2016-08-28] MEDS ORDERED: BISACODYL 10 MG SUPP PR PRN (09:45)
[2016-08-28] MEDS ORDERED: BISACODYL 10 MG SUPP PR ONE (10:15)
[2016-08-28 10:16] VITALS: O2SAT 94
[2016-08-28] MEDS: PANTOprazole INJ 40 MG in SYRINGE 0 ML IV SCH (10:28)
[2016-08-28] MEDS ORDERED: NURSING VERBAL MED ORDER ONE (13:15)
[2016-08-28] MEDS ORDERED: ACETAMINOPHEN IV 1000MG/100ML IV ONE (13:30)
[2016-08-28 15:06] VITALS: BP 128/69; PULSE 78; TEMP 36.9; O2SAT 89
--- NOTE | 2016-08-28 17:26 | Surgery Consultation ---
Consultation Date of Consultation: Aug 28, 2016. Attending Physician: Edis Guerrero MD, PhD (Marta Bernabe PA-C) History of Present Illness Juno is a 61 year-old male who presented to the emergency room on Sunday with complaint of abdominal pain and nausea and vomiting. Juno states the pain began Sunday evening and was located at the belt line. States he went out to eat and got home and became more uncomfortable as the night went on. Pain was located lower and upper abdomen with associated nausea and vomiting. Went to urgent care Sunday and then was sent to emergency room. Juno was found to have gallstones on ultrasound examination in the ER and subsequently underwent MRCP which showed pancreatic edema and peripancreatic fluid suggestive of severe acute pancreatitis. Juno denies of known history of gallstones or gallbladder problems. Has some constipation which is new for him. Denies of any fever, chills, sweats, increasing abdominal pain, diarrhea, blood in stools or vomiting blood. Labs on admission: Leukocytosis of 12.38 [place] [address] and amylase of 1146. Repeat labs of WBC actually trending up. Today's WBC of 17.72 Repeat amylase and lipase show trending down. with lipase of 1352 today. (Marta Bernabe PA-C) Past Medical/Surgical History Medical Problems: (1) Pancreatitis Status: Acute (2) Cholelithiasis (3) Vomiting Status: Acute Past Medical History: 1. Hypercholesterolemia 2. Umbilical hernia- asymptomatic 3. Shingles Past Surgical History: 1. Tonsillectomy (Marta Bernabe PA-C) Social History Smoking Status: Current Some Day Smoker (cigar, one every 3 weeks) Smokeless Tobacco Use: No Alcohol Use: none Drug Use: none Marital Status: Occupation Status: employed (Marta Bernabe PA-C) Allergies Coded Allergies: Latex1 -Allergic Contact Dermititis (Verified Allergy, Unknown, RASH, 08/26) Home Medications No Active Prescriptions or Reported Meds Current Inpatient Medications Current Inpatient Medications Medications (Trade) Dose Ordered Sig/Nabila Route Start Time Stop Time Status Last Admin Dose Admin Acetaminophen (Tylenol Tab) 650 mg Q4H PRN PO 08/26/16 20:00 09/25/16 19:59 Zolpidem Tartrate (Ambien Tab) 5 mg HSZ PRN PO 08/26/16 20:00 09/25/16 19:59 Lorazepam (Ativan Inj) 0.5 mg Q4H PRN IV 08/26/16 20:00 09/25/16 19:59 Diphenhydramine HCl 25 mg 25 mg Q4H PRN IV 08/26/16 20:00 09/25/16 19:59 Promethazine HCl/ Sodium Chloride (Phenergan Inj/ Nss 50ml) 50.5 ml @ 202 mls/hr Q4H PRN IV 08/26/16 20:00 09/25/16 19:59 Ondansetron HCl (Zofran Inj) 4 mg Q6H PRN IV 08/26/16 20:00 09/25/16 19:59 08/28/16 07:29 4 MG Morphine Sulfate (MoRPHine SULFATE INJ) 2 mg Q2H PRN IV 08/26/16 20:00 09/09/16 19:59 08/27/16 19:19 2 MG Morphine Sulfate 4 mg 4 mg Q2H PRN IV 08/26/16 20:00 09/09/16 19:59 08/28/16 07:29 4 MG Potassium Chloride/Sodium Chloride 1,000 ml @ 200 mls/hr Q5H IV 08/26/16 23:00 09/26/16 22:59 08/28/16 13:40 200 MLS/HR Pantoprazole Sodium 40 mg/ Syringe 10 ml @ 5 mls/min DAILY@11 IV 08/27/16 11:00 09/26/16 10:59 08/28/16 10:28 5 MLS/MIN Promethazine HCl/ Sodium Chloride (Phenergan Inj/ Nss 50ml) 51 ml @ 204 mls/hr Q6H PRN IV 08/26/16 20:15 09/25/16 20:14 08/27/16 01:19 204 MLS/HR Enoxaparin Sodium (Lovenox Inj) 40 mg QAM SQ 08/28/16 09:00 09/27/16 08:59 08/28/16 09:03 40 MG Bisacodyl (Dulcolax Supp) 10 mg DAILY PRN MS 08/28/16 09:45 09/27/16 09:44 (Marta Bernabe ., SUREKHAC) Review of Systems Constitutional: + fatigue, + weakness, No chills, No fever, No sweats Respiratory: No shortness of breath Cardiovascular: No chest pain Abdomen: + constipation, + nausea, + pain, + vomiting, No GI bleeding, No diarrhea Musculoskeletal: + muscle pain Neurologic: + weakness Endocrine: + fatigue Integumentary: No rash (Marta Bernabe PA-C) Physical Exam Date Time Temp Pulse Resp B/P Pulse Ox O2 Delivery O2 Flow Rate FiO2 08/28/16 15:06 36.9 78 18 128/69 89 Room Air 08/28/16 10:16 94 Room Air 08/28/16 08:18 36.9 91 18 138/70 94 Room Air 08/28/16 07:30 Room Air 08/27/16 23:55 37.2 99 16 158/64 92 Room Air 08/27/16 19:15 Room Air General Appearance: WD/WN, + mild distress Head: normocephalic, atraumatic Eyes: sclerae normal ENT: hearing grossly normal Neck: supple, no adenopathy Respiratory/Chest: chest non-tender, lungs clear, normal breath sounds, no respiratory distress, no accessory muscle use Cardiovascular: regular rate, rhythm, no murmur Abdomen/GI: soft, no organomegaly, + tenderness, + guarding Extremities/Musculoskelatal: normal inspection, no calf tenderness, no pedal edema Neurologic/Psych: alert, normal mood/affect, oriented x 3 Skin: normal color, warm/dry, no rash (Marta Bernabe ., SUREKHAC) Laboratory Results Last 24 Hours Test 08/28/16 05:20 White Blood Count 17.72 K/uL Red Blood Count 4.52 M/uL Hemoglobin 14.2 g/dL Hematocrit 40.7 % Mean Corpuscular Volume 90.0 fL Mean Corpuscular Hemoglobin 31.4 pg Mean Corpuscular Hemoglobin Concent 34.9 g/dl Platelet Count 186 K/uL Mean Platelet Volume 9.1 fL Neutrophils (%) (Auto) 84.7 % Lymphocytes (%) (Auto) 7.7 % Monocytes (%) (Auto) 7.2 % Eosinophils (%) (Auto) 0.0 % Basophils (%) (Auto) 0.1 % Neutrophils # (Auto) 15.01 K/uL Lymphocytes # (Auto) 1.36 K/uL Monocytes # (Auto) 1.28 K/uL Eosinophils # (Auto) 0.00 K/uL Basophils # (Auto) 0.01 K/uL RDW Standard Deviation 44.7 fL RDW Coefficient of Variation 13.4 % Immature Granulocyte % (Auto) 0.3 % Immature Granulocyte # (Auto) 0.06 K/uL Sodium Level 144 mmol/L Potassium Level 3.9 mmol/L Chloride Level 110 mmol/L Carbon Dioxide Level 24 mmol/L Anion Gap 10.0 mmol/L Blood Urea Nitrogen 11 mg/dl Creatinine 0.88 mg/dl Est Creatinine Clear Calc Drug Dose 96.4 ml/min Estimated GFR () 107.5 Estimated GFR (Non- 92.7 BUN/Creatinine Ratio 13.0 Random Glucose 101 mg/dl Calcium Level 8.3 mg/dl Magnesium Level 2.1 mg/dl Total Bilirubin 0.9 mg/dl Direct Bilirubin 0.2 mg/dl Aspartate Amino Transf (AST/SGOT) 44 U/L Alanine Aminotransferase (ALT/SGPT) 243 U/L Alkaline Phosphatase 59 U/L Total Protein 6.7 gm/dl Albumin 3.0 gm/dl Lipase 1352 U/L DIAGNOSTIC RESULTS Ultrasound on 08/26/16 FINDINGS: Liver: The liver is enlarged, measuring over 20 cm in length. Liver demonstrates heterogeneously increased echotexture consistent with severe hepatic steatosis. Note that this degrades acoustic penetration of the liver. Fatty sparing is present adjacent to gallbladder fossa. There is no intrahepatic biliary ductal dilatation. The main portal vein is patent. Gallbladder: Calcified shadowing gallstones are identified and there is biliary sludge. 1.2 cm stone is noted in the region of the gallbladder neck. There is no gallbladder wall thickening or pericholecystic fluid. A sonographic Khoury's sign is reportedly absent. The common bile duct measures up to 0.6 cm in diameter. Pancreas: Not well assessed due to overlying bowel gas. MRCP on 08/26/16 IMPRESSION: 1. Findings are consistent with severe acute pancreatitis. 2. Cholelithiasis without convincing evidence of acute cholecystitis. 3. The liver appears enlarged and there is trace perihepatic ascites. 4. There is no intrahepatic or extrahepatic biliary ductal dilatation. There is no choledocholithiasis. (Marta Bernabe ., PA-C) Assessment & Plan Acute Gallstone Pancreatitis - vs stable - afebrile - Leukocytosis trending up - amylase and lipase trending down - mild to moderate abdominal pain PLAN: Plan to obtain CT scan of abdomen and pelvis to rule out any necrotizing pancreatitis given increase in leukocytosis. Patient will need to have a cholecystectomy however will need to allow the pancreatitis to improve prior to surgical intervention. Discussed this with patient and he understands. Keep patient NPO , may have water. Continue IV fluids, IV pain medication, and conservative management. Dr. Gama has seen and examined patient, agrees with above findings and treatment plan. (Marta Bernabe ., PA-C) I have interviewed and examined this patient and reviewed the laboratory and radiology studies and I agree with the above note. he has his first episode of pancreatitis most likely due to gallstones. He is box tender. His WBC is climbing and I would like to rule out necrotizing pancreatitis. Await CT scan result. He will need a cholecystectomy at some point after pancreatitis resolves. (Danilo Gama M.D.)
[2016-08-28] MEDS ORDERED: OPTIRAY 320 IV PRN (20:45)
--- NOTE | 2016-08-28 21:31 | DIAGNOSTIC IMAGING REPORT ---
CT SCAN OF THE ABDOMEN AND PELVIS WITH IV CONTRAST CLINICAL HISTORY: Acute pancreatitis. Leukocytosis. COMPARISON STUDY: MRCP dated 08/26/2016. TECHNIQUE: Following the IV administration of 93 cc of Optiray 320, CT scan of the abdomen and pelvis is performed from the lung bases to the proximal femora. Images are reviewed in the axial, sagittal, and coronal planes. IV contrast was administered without complication. Automated dose control exposure was utilized. CT DOSE: 570.97 mGy.cm FINDINGS: Lung bases: The heart is enlarged and there is a small pericardial effusion. There are small bilateral pleural effusions with associated bibasilar consolidation. A tiny hiatal hernia is identified. Liver: The contrast-enhanced liver is enlarged, measuring 20 cm in length. The liver demonstrates diffusely diminished attenuation consistent with hepatic steatosis. An 8 mm hypodensity in the left lobe is indeterminant. There is no intrahepatic biliary ductal dilatation. The hepatic veins and portal veins are patent. Gallbladder: Unremarkable. Spleen: Normal in size and attenuation. Pancreas: The pancreas is edematous and there is extensive peripancreatic inflammatory stranding as well as peripancreatic fluid. The appearance is consistent with severe acute pancreatitis. There is diminished enhancement seen in the region of the pancreatic neck on axial image #183 which is highly concerning for pancreatic necrosis. There is interval gland Enhances homogeneously. There is no organized fluid collection to suggest pseudocyst. The splenic vein is patent. Adrenal glands: Unremarkable. Kidneys: The contrast enhanced kidneys are normal in size and without hydronephrosis. The kidneys enhance symmetrically. A circumaortic left renal vein is incidentally noted. Abdominal vasculature: The abdominal aorta is normal in course and caliber. Bowel: The small bowel and colon are normal in course and caliber. There is wall thickening in the duodenum, likely related to adjacent pancreatitis. The appendix is not visualized. Peritoneum: There is a small volume of abdominopelvic ascites. No intraperitoneal free air is seen. There is a moderate fat-containing umbilical hernia. Lymphadenopathy: None. Pelvic viscera: The there is mild median lobe hypertrophy of the prostate gland. The bladder is normal as visualized. Skeletal structures: No lytic or blastic lesions are seen. Mild degenerative change and scoliosis is noted in the lumbosacral spine. IMPRESSION: 1. Findings are consistent with severe acute pancreatitis. 2. There is diminished perfusion seen in the region of the pancreatic neck which is highly concerning for pancreatic necrosis. The remainder of the gland enhances homogeneously. 3. There is no organized fluid collection to suggest pseudocyst. The splenic vein is patent. 4. Hepatomegaly and hepatic steatosis. 5. There is a small volume of abdominopelvic ascites. 6. Small pleural effusions with bibasilar consolidation. This could represent atelectasis and/or an infectious/inflammatory pneumonitis. Clinical correlation will be required. 7. Cardiomegaly. 8. Additional findings as detailed above. Electronically signed by: Prince Eastman M.D. 08/28/2016 9:30 PM Dictated Date/Time: 08/28/2016 9:23 PM
[2016-08-28 23:27] VITALS: BP 151/79; PULSE 76; TEMP 37.1; O2SAT 90
[2016-08-29] MEDS: NSS + 20MEQ KCL 1000ML 1,000 ML IV SCH ×5 (00:24→20:19)
--- NOTE | 2016-08-29 00:35 | GASTROINTESTINAL CONSULTATION ---
DATE OF CONSULTATION: 08/28/2016 ATTENDING PHYSICIAN: Dr. Guerrero. CONSULTING PHYSICIAN: Dr. Muniz. REASON FOR CONSULTATION: Gallstone pancreatitis. HISTORY OF PRESENT ILLNESS: Juno Bragg is a 61-year-old male who presented to the Department of Emergency Medicine on 08/26/2016 with complaints of abdominal pain and vomiting. Upon arrival, he was noted to have an elevated lipase level of 11,195 with an amylase level of 1146. He subsequently underwent a gallbladder ultrasound and was noted to have hepatomegaly, severe hepatic steatosis, cholelithiasis, and biliary sludge. No convincing sonographic evidence of acute cholecystitis. There was trace perihepatic fluid noted and his liver panel included a total bilirubin of 1.6 with an AST of 413 and an ALT of 760, his alk phos was 90. He was subsequently admitted and treated supportively. We were consulted today. His bilirubin is now normal at 0.9. His AST has decreased to 44, ALT is 243, and an alk phos level is 59. He did undergo an MRCP which showed findings consistent with severe acute pancreatitis and cholelithiasis without evidence of acute cholecystitis. There was no intra or extrahepatic biliary ductal dilatation and no evidence of choledocholithiasis. He was treated supportively. We were asked to see the patient in consultation. He currently complains of epigastric pain in bilateral lower quadrants, approximately 4-5/10 in intensity, nonradiating, with no exacerbating factors, though it is alleviated with narcotic analgesics. He denies any further nausea, vomiting, hematemesis, melena, hematochezia, jaundice, acholic stools, dark urine, pruritus, fatigue, excessive alcohol use, and states that he has never had pancreatitis in the past. He does state that he was seen by surgery and they felt that "surgery was imminent," though I do not have any record of this at this time. PAST MEDICAL HISTORY: Significant for hyperlipidemia. PAST SURGICAL HISTORY: None. ALLERGIES: TO LATEX. CURRENT MEDICATIONS: Include Dulcolax 10 mg per rectum daily p.r.n. constipation, Lovenox 40 mg subcu q.a.m., Protonix 40 mg IV daily, Phenergan 25 mg IV q. 6 p.r.n. nausea or vomiting, Tylenol 650 mg p.o. q. 4 p.r.n. pain or fever, Ambien 5 mg p.o. at bedtime p.r.n. insomnia, Ativan 0.5 mg IV q. 4 p.r.n. anxiety, Benadryl 25 mg IV q. 4 p.r.n. pain or itching, Zofran 4 mg IV q. 6 p.r.n. nausea, morphine 2 mg IV q. 2 p.r.n. pain, morphine 4 mg IV q. 2 p.r.n. severe pain. SOCIAL HISTORY: He denies any tobacco, alcohol or illicit drug use. He is . FAMILY HISTORY: Negative for GI malignancy or inflammatory bowel diseases. REVIEW OF SYSTEMS: Negative x10 system review other than pertinent positives listed in the HPI. PHYSICAL EXAMINATION: VITAL SIGNS: Temp 36.9, pulse 78, respirations 18, blood pressure 128/69, pulse ox 94% on room air. GENERAL: Awake, cooperative, mild distress. HEAD: Normocephalic, atraumatic. EYES: Pupils equal and round. Extraocular muscles are intact. Sclerae nonicteric. ENT: External evaluation of ears and nose normal. Oropharynx is clear. NECK: Soft, supple. No JVD or lymphadenopathy. CHEST: Clear to auscultation bilaterally. CARDIOVASCULAR: Regular rate and rhythm. ABDOMEN: Soft. Tender in bilateral lower quadrants and midepigastric area. Nondistended. Positive bowel sounds. There is no hepatosplenomegaly or stigmata of chronic liver disease. EXTREMITIES: No clubbing, cyanosis or edema. SKIN: Soft, pink. Good turgor. LABORATORY STUDIES AND RADIOGRAPHIC STUDIES: Reviewed in the HPI. IMPRESSION: A 61-year-old male who presented with acute pancreatitis secondary to gallstones with no evidence of choledocholithiasis. PLAN: I would recommend that the patient have a cholecystectomy to prevent secondary episode of pancreatitis in the near future. I will leave the timing of this to general surgery and I would recommend continuing his supportive care with narcotic analgesics, IV fluids, and antiemetics as needed. I will follow his clinical course and make further recommendations. Once again, thanks for allowing me to participate in the care of this patient. If you have any further questions, please do not hesitate in contacting me.
[2016-08-29] MEDS: MoRPHine SULFATE 4 MG/ML 1 ML CARP\\VIAL IV PRN ×4 (01:18→23:41)
[2016-08-29] MEDS: MoRPHine SULFATE 2 MG/ML CARP IV PRN ×2 (04:21→16:33)
[2016-08-29 06:45] LABS: BASO % 0.1 %; BASO ABS # 0.01 K/uL (0-0.2); COMPLETE YES; HEMATOCRIT 36.8 % (42-52); IG% 0.3 %; LYMPH % 11.3 %; LYMPH ABS # 1.53 K/uL (1.2-3.4); MEAN CELL VOLUME 92.5 fL (80-100); MEAN CORPUSCULAR HEMOGLOBIN 31.4 pg (25-34); MEAN PLATELET VOLUME 9.2 fL (7.4-10.4); MONO % 8.2 %; NEUT % 80.1 %; PLATELET COUNT 154 K/uL (130-400); RED BLOOD COUNT 3.98 M/uL (4.7-6.1); WHITE BLOOD COUNT 13.57 K/uL (4.8-10.8)
[2016-08-29 06:57] VITALS: BP 152/83; PULSE 73; TEMP 37.4; O2SAT 92
[2016-08-29 07:21] LABS: BUN/CREATININE RATIO 15.4 (10-20); CREATININE 0.69 mg/dl (0.60-1.40); MAGNESIUM 2.3 mg/dl (1.8-2.4); POTASSIUM 3.8 mmol/L (3.5-5.1)
[2016-08-29] MEDS: PANTOprazole INJ 40 MG in SYRINGE 0 ML IV SCH (09:47)
[2016-08-29] MEDS: ENOXAPARIN 40 MG/0.4 ML SYR SQ SCH (09:47)
--- NOTE | 2016-08-29 09:57 | Gastroenterology Progress Note ---
Progress Note Date of Service: Aug 29, 2016 Subjective Pt evaluation today including: conversation w/ patient, physical exam, chart review, lab review, review of studies, review of inpatient medication list Patient reports stable abdominal pain. Rates currently 8/10 in intensity. No nausea or vomiting or fevers. WBC has slightly improved from 17.72 to 13.57 today. Lipase has also continued to trend down and was normal at [address] a /p from yesterday reviewed which demonstrated severe acute pancreatitis with possible pancreatic necrosis. Remains NPO. Surgery has been consulted and is planning for cholecystectomy once acute inflammation has improved. Continues supportive measures with IV rehydration and analgesics. Review of Systems Constitutional: + fatigue, + see HPI Respiratory: No problem reported Cardiac: No problem reported Abdomen: + see HPI Psych: No problem reported Medications Current Inpatient Medications Medications (Trade) Dose Ordered Sig/Nabila Route Start Time Stop Time Status Last Admin Dose Admin Acetaminophen (Tylenol Tab) 650 mg Q4H PRN PO 08/26/16 20:00 09/25/16 19:59 Zolpidem Tartrate (Ambien Tab) 5 mg HSZ PRN PO 08/26/16 20:00 09/25/16 19:59 Lorazepam (Ativan Inj) 0.5 mg Q4H PRN IV 08/26/16 20:00 09/25/16 19:59 Diphenhydramine HCl 25 mg 25 mg Q4H PRN IV 08/26/16 20:00 09/25/16 19:59 Promethazine HCl/ Sodium Chloride (Phenergan Inj/ Nss 50ml) 50.5 ml @ 202 mls/hr Q4H PRN IV 08/26/16 20:00 09/25/16 19:59 Ondansetron HCl (Zofran Inj) 4 mg Q6H PRN IV 08/26/16 20:00 09/25/16 19:59 08/28/16 07:29 4 MG Morphine Sulfate (MoRPHine SULFATE INJ) 2 mg Q2H PRN IV 08/26/16 20:00 09/09/16 19:59 08/29/16 04:21 2 MG Morphine Sulfate 4 mg 4 mg Q2H PRN IV 08/26/16 20:00 09/09/16 19:59 08/29/16 07:18 4 MG Potassium Chloride/Sodium Chloride 1,000 ml @ 200 mls/hr Q5H IV 08/26/16 23:00 09/26/16 22:59 08/29/16 05:23 200 MLS/HR Pantoprazole Sodium 40 mg/ Syringe 10 ml @ 5 mls/min DAILY@11 IV 08/27/16 11:00 09/26/16 10:59 08/28/16 10:28 5 MLS/MIN Promethazine HCl/ Sodium Chloride (Phenergan Inj/ Nss 50ml) 51 ml @ 204 mls/hr Q6H PRN IV 08/26/16 20:15 09/25/16 20:14 08/27/16 01:19 204 MLS/HR Enoxaparin Sodium (Lovenox Inj) 40 mg QAM SQ 08/28/16 09:00 09/27/16 08:59 08/28/16 09:03 40 MG Bisacodyl (Dulcolax Supp) 10 mg DAILY PRN DC 08/28/16 09:45 09/27/16 09:44 Ioversol (Optiray 320) 125 ml UD PRN IV 08/28/16 20:45 09/01/16 20:44 Objective Vital Signs Date Time Temp Pulse Resp B/P Pulse Ox O2 Delivery O2 Flow Rate FiO2 08/29/16 07:20 Room Air 2.0 Humidified Oxygen 08/29/16 06:57 37.4 73 18 152/83 92 Room Air 08/28/16 23:27 37.1 76 15 151/79 90 Room Air 08/28/16 23:15 Room Air 08/28/16 15:15 Room Air 08/28/16 15:06 36.9 78 18 128/69 89 Room Air 08/28/16 10:16 94 Room Air Physical Exam General Appearance: no apparent distress Eyes: EOMI Neck: supple Respiratory/Chest: lungs clear, normal breath sounds, no respiratory distress Cardiovascular: regular rate, rhythm, no gallop, no murmur Abdomen: normal bowel sounds, soft, + tenderness Neurologic/Psych: alert, normal mood/affect, oriented x 3 Skin: warm/dry Laboratory Results Last 24 Hours Test 08/29/16 06:20 White Blood Count 13.57 K/uL Red Blood Count 3.98 M/uL Hemoglobin 12.5 g/dL Hematocrit 36.8 % Mean Corpuscular Volume 92.5 fL Mean Corpuscular Hemoglobin 31.4 pg Mean Corpuscular Hemoglobin Concent 34.0 g/dl Platelet Count 154 K/uL Mean Platelet Volume 9.2 fL Neutrophils (%) (Auto) 80.1 % Lymphocytes (%) (Auto) 11.3 % Monocytes (%) (Auto) 8.2 % Eosinophils (%) (Auto) 0.0 % Basophils (%) (Auto) 0.1 % Neutrophils # (Auto) 10.88 K/uL Lymphocytes # (Auto) 1.53 K/uL Monocytes # (Auto) 1.11 K/uL Eosinophils # (Auto) 0.00 K/uL Basophils # (Auto) 0.01 K/uL RDW Standard Deviation 45.5 fL RDW Coefficient of Variation 13.5 % Immature Granulocyte % (Auto) 0.3 % Immature Granulocyte # (Auto) 0.04 K/uL Sodium Level 143 mmol/L Potassium Level 3.8 mmol/L Chloride Level 110 mmol/L Carbon Dioxide Level 25 mmol/L Anion Gap 8.0 mmol/L Blood Urea Nitrogen 11 mg/dl Creatinine 0.69 mg/dl Est Creatinine Clear Calc Drug Dose 122.9 ml/min Estimated GFR () 118.8 Estimated GFR (Non- 102.5 BUN/Creatinine Ratio 15.4 Random Glucose 83 mg/dl Calcium Level 8.0 mg/dl Magnesium Level 2.3 mg/dl Total Bilirubin 0.7 mg/dl Direct Bilirubin 0.2 mg/dl Aspartate Amino Transf (AST/SGOT) 20 U/L Alanine Aminotransferase (ALT/SGPT) 150 U/L Alkaline Phosphatase 51 U/L Total Protein 6.2 gm/dl Albumin 2.8 gm/dl Lipase 273 U/L Assessment and Plan Patient is a 61 year-old male with a history of cholelithiasis admitted with severe acute pancreatitis with possible pancreatic necrosis without evidence of choledocholithiasis. 1. Remains NPO. Okay to advance to clear liquids today from a GI standpoint if okay with general surgery. 2. Consider antibiotic therapy if WBC elevates again or if he demonstrates clinical deterioration. 3. Supportive measures with continued IV rehydration and analgesics. Agree with YANELI Neil as above Abd: Soft, Tender B/L LQ, Midepigastric area, ND, +BS Continue supportive care Will have CCx during this hospitalization.
--- NOTE | 2016-08-29 10:01 | Progress Note ---
Subjective Date of Service: Aug 29, 2016. Subjective Pt evaluation today including: conversation w/ patient, conversation w/ family , physical exam, chart review, lab review, review of studies, review of inpatient medication list Nurse reported oxygen level was 88% in room air, mild cough, nc O2 was started Patient reported feeling better, however still have abdominal pain which is a 7 out of 10, is the same as yesterday, required to regular IV pain medicine Problem List Medical Problems: (1) Biliary colic Status: Acute (2) Pancreatitis Status: Acute (3) Vomiting Status: Acute Review of Systems Constitutional: No chills, No fatigue, No fever, No problem reported, No sweats , No weakness, No weight loss Eyes: No diplopia, No discharge, No eye pain, No redness, No worsening of vision ENT: No dental problems, No hearing loss, No nasal symptoms, No sore throat, No tinnitus, No trouble swallowing, No unusual epistaxis Respiratory: + cough, No dyspnea at rest, No dyspnea on exertion, No hemoptysis , No shortness of breath, No sputum, No wheezing Cardiac: No PND, No chest pain, No claudication, No edema, No orthopnea, No palpitations Abdomen: + pain, No constipation, No diarrhea, No nausea, No vomiting Musculoskeletal: No calf pain, No joint pain, No muscle pain, No swelling Male : No dysuria, No hematuria, No incontinence, No nocturia more than once/ night, No slowing stream, No urinary frequency Neurologic: No balance problems, No memory loss, No numbness/tingling, No paralysis, No vertigo, No weakness Psychiatric: No anhedonism, No anxiety, No depression symptoms, No insomnia, No substance abuse Heme: No abnormal bleeding/bruising, No clotting problems, No night sweats, No swollen lymph nodes Endo: No excessive thirst, No excessive urination, No fatigue Skin: No bleeding, No color change, No itch, No new/changing skin lesions, No rash Objective Vital Signs Date Time Temp Pulse Resp B/P Pulse Ox O2 Delivery O2 Flow Rate FiO2 08/29/16 07:20 Room Air 2.0 Humidified Oxygen 08/29/16 06:57 37.4 73 18 152/83 92 Room Air 08/28/16 23:27 37.1 76 15 151/79 90 Room Air 08/28/16 23:15 Room Air 08/28/16 15:15 Room Air 08/28/16 15:06 36.9 78 18 128/69 89 Room Air 08/28/16 10:16 94 Room Air Physical Exam General Appearance: + thin Eyes: normal inspection, PERRL, EOMI, sclerae normal ENT: normal ENT inspection, hearing grossly normal, pharynx normal Neck: supple, no adenopathy, thyroid normal, no JVD, no carotid bruits, trachea midline Respiratory/Chest: chest non-tender, normal breath sounds, no respiratory distress, no accessory muscle use, + decreased breath sounds, + rales Cardiovascular: regular rate, rhythm, no edema, no gallop, no JVD, no murmur Abdomen: normal bowel sounds, non tender, soft, no organomegaly, no pulsatile mass Extremities: normal range of motion, non-tender, normal inspection, no pedal edema, no calf tenderness, normal capillary refill, pelvis stable 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, no motor/sensory deficits, alert, normal mood/affect, oriented x 3 Skin: normal color, warm/dry, no rash Lymphatic: no adenopathy Laboratory Results Last 24 Hours Test 08/29/16 06:20 White Blood Count 13.57 K/uL Red Blood Count 3.98 M/uL Hemoglobin 12.5 g/dL Hematocrit 36.8 % Mean Corpuscular Volume 92.5 fL Mean Corpuscular Hemoglobin 31.4 pg Mean Corpuscular Hemoglobin Concent 34.0 g/dl Platelet Count 154 K/uL Mean Platelet Volume 9.2 fL Neutrophils (%) (Auto) 80.1 % Lymphocytes (%) (Auto) 11.3 % Monocytes (%) (Auto) 8.2 % Eosinophils (%) (Auto) 0.0 % Basophils (%) (Auto) 0.1 % Neutrophils # (Auto) 10.88 K/uL Lymphocytes # (Auto) 1.53 K/uL Monocytes # (Auto) 1.11 K/uL Eosinophils # (Auto) 0.00 K/uL Basophils # (Auto) 0.01 K/uL RDW Standard Deviation 45.5 fL RDW Coefficient of Variation 13.5 % Immature Granulocyte % (Auto) 0.3 % Immature Granulocyte # (Auto) 0.04 K/uL Sodium Level 143 mmol/L Potassium Level 3.8 mmol/L Chloride Level 110 mmol/L Carbon Dioxide Level 25 mmol/L Anion Gap 8.0 mmol/L Blood Urea Nitrogen 11 mg/dl Creatinine 0.69 mg/dl Est Creatinine Clear Calc Drug Dose 122.9 ml/min Estimated GFR () 118.8 Estimated GFR (Non- 102.5 BUN/Creatinine Ratio 15.4 Random Glucose 83 mg/dl Calcium Level 8.0 mg/dl Magnesium Level 2.3 mg/dl Total Bilirubin 0.7 mg/dl Direct Bilirubin 0.2 mg/dl Aspartate Amino Transf (AST/SGOT) 20 U/L Alanine Aminotransferase (ALT/SGPT) 150 U/L Alkaline Phosphatase 51 U/L Total Protein 6.2 gm/dl Albumin 2.8 gm/dl Lipase 273 U/L Assessment and Plan 61 yo male with acute gall stone pancreatitis which is necrotizing pancreatitis admitted on 08/26/19 17 - Acute gallstone pancreatitis: Repeat abdominal CT shows necrotizing pancreatitis on 08/28/2016 General conditions slowly improving, lipase and transaminases trending down Surgeon on the case, the further planning will be per surgeon, such as diet, necessary to transfer to tertiary [facility] or not will depend on surgeon GI and surgeon's input appreciated - Hypoxia, history of tobacco abuse disorder, current continue's cigarette smoking,, differential diagnosis include COPD, or because of fluid overload from ivf , the treatment of pancreatitis We'll check a chest x-ray two-view, start DuoNeb breathing treatment, and adjust fluid volume, Has encouraged patient to do IR every 2 hours when awake MRCP confirmed gall stones and sludge in gall bladder, no choledocholithiasis, no cholecystitis results in below: 1. Findings are consistent with severe acute pancreatitis. 2. Cholelithiasis without convincing evidence of acute cholecystitis. 3. The liver appears enlarged and there is trace perihepatic ascites. 4. There is no intrahepatic or extrahepatic biliary ductal dilatation. There is no choledocholithiasis. We'll continue NSS to 200cc/hr, Morphine PRN for pain, keep NPO , will not advanced diet because still complaining of pain and required IV pain medicine Was on Zosyn, which was stopped yesterday because no evidence of bacterial infection continue Protonix general surgery consulted to discuss timing of cholecystectomy, will place the consultation, will also request GI consult because of abdominal pain not improving repeat CBC and CMP and lipase in the morning - DVT prophylaxis: Grecianox Plan: As above , NPO, fluids, follow-up chest x-ray, diet per surgeon Continued [facility] stay due to: multiple IV medications needed Discharge planning: home
[2016-08-29 10:11] VITALS: PULSE 81; O2SAT 95
[2016-08-29] MEDS: ALBUT/IPRATROP 3MG/0.5MG NEB 3 ML VIAL INH SCH ×3 (10:11→19:47)
--- NOTE | 2016-08-29 12:19 | DIAGNOSTIC IMAGING REPORT ---
TWO VIEW CHEST CLINICAL HISTORY: Hypoxia.. FINDINGS: PA and lateral chest radiographs are compared to study dated 08/26/16 and correlated with chest CT dated 10/19/2010. The examination is degraded by portable technique and patient rotation. The heart is mildly enlarged. The pulmonary vasculature is noncongested. There is chronic elevation of the right hemidiaphragm. Bibasilar consolidation is seen and there are small pleural effusions. The upper lobes appear clear. There is no pneumothorax. The skeletal structures are osteopenic. Chronic posttraumatic deformity is suggested in the right humerus. IMPRESSION: 1. Mild cardiomegaly without radiographic evidence of congestive failure. 2. Small pleural effusions with bibasilar consolidation. Correlate clinically for evidence of aspiration pneumonitis/pneumonia. Radiographic follow-up to resolution is recommended. Electronically signed by: Prince Eastman M.D. 08/29/2016 12:18 PM Dictated Date/Time: 08/29/2016 12:16 PM
[2016-08-29 15:11] VITALS: BP 169/93; PULSE 74; TEMP 37.3; O2SAT 92
[2016-08-29 15:13] VITALS: PULSE 69; O2SAT 98
--- NOTE | 2016-08-29 16:57 | Surgery Progress Note ---
Surgery Progress Note Date of Service Aug 29, 2016. Subjective Still having 8-9 of 10 pain across entire upper abdomen Controlled with morphine Objective Vital Signs: Date Time Temp Pulse Resp B/P Pulse Ox O2 Delivery O2 Flow Rate FiO2 08/29/16 15:13 69 16 98 Nasal Cannula 2.0 08/29/16 15:11 37.3 74 18 169/93 92 Nasal Cannula 2.0 Humidified Oxygen 08/29/16 10:11 81 16 95 Nasal Cannula 2.0 08/29/16 07:20 Room Air 2.0 Humidified Oxygen 08/29/16 06:57 37.4 73 18 152/83 92 Room Air 08/28/16 23:27 37.1 76 15 151/79 90 Room Air 08/28/16 23:15 Room Air Abdomen: + distended (mild), + tenderness (to light palpation acros upper abdomen) Laboratory Results: Results Past 24 Hours Test 08/29/16 06:20 Range/Units White Blood Count 13.57 4.8-10.8 K/uL Red Blood Count 3.98 4.7-6.1 M/uL Hemoglobin 12.5 14.0-18.0 g/dL Hematocrit 36.8 42-52 % Mean Corpuscular Volume 92.5 80-100 fL Mean Corpuscular Hemoglobin 31.4 25-34 pg Mean Corpuscular Hemoglobin Concent 34.0 32-36 g/dl Platelet Count 154 130-400 K/uL Mean Platelet Volume 9.2 7.4-10.4 fL Neutrophils (%) (Auto) 80.1 % Lymphocytes (%) (Auto) 11.3 % Monocytes (%) (Auto) 8.2 % Eosinophils (%) (Auto) 0.0 % Basophils (%) (Auto) 0.1 % Neutrophils # (Auto) 10.88 1.4-6.5 K/uL Lymphocytes # (Auto) 1.53 1.2-3.4 K/uL Monocytes # (Auto) 1.11 0.11-0.59 K/uL Eosinophils # (Auto) 0.00 0-0.5 K/uL Basophils # (Auto) 0.01 0-0.2 K/uL RDW Standard Deviation 45.5 36.4-46.3 fL RDW Coefficient of Variation 13.5 11.5-14.5 % Immature Granulocyte % (Auto) 0.3 % Immature Granulocyte # (Auto) 0.04 0.00-0.02 K/uL Sodium Level 143 136-145 mmol/L Potassium Level 3.8 3.5-5.1 mmol/L Chloride Level 110 98-107 mmol/L Carbon Dioxide Level 25 21-32 mmol/L Anion Gap 8.0 3-11 mmol/L Blood Urea Nitrogen 11 7-18 mg/dl Creatinine 0.69 0.60-1.40 mg/dl Est Creatinine Clear Calc Drug Dose 122.9 ml/min Estimated GFR () 118.8 Estimated GFR (Non- 102.5 BUN/Creatinine Ratio 15.4 10-20 Random Glucose 83 70-99 mg/dl Calcium Level 8.0 8.5-10.1 mg/dl Magnesium Level 2.3 1.8-2.4 mg/dl Total Bilirubin 0.7 0.2-1 mg/dl Direct Bilirubin 0.2 0-0.2 mg/dl Aspartate Amino Transf (AST/SGOT) 20 15-37 U/L Alanine Aminotransferase (ALT/SGPT) 150 12-78 U/L Alkaline Phosphatase 51 45-117 U/L Total Protein 6.2 6.4-8.2 gm/dl Albumin 2.8 3.4-5.0 gm/dl Lipase 273 73-393 U/L Diagnostic Interpretation: CT SCAN OF THE ABDOMEN AND PELVIS WITH IV CONTRAST CLINICAL HISTORY: Acute pancreatitis. Leukocytosis. COMPARISON STUDY: MRCP dated 08/26/2016. TECHNIQUE: Following the IV administration of 93 cc of Optiray 320, CT scan of the abdomen and pelvis is performed from the lung bases to the proximal femora. Images are reviewed in the axial, sagittal, and coronal planes. IV contrast was administered without complication. Automated dose control exposure was utilized. CT DOSE: 570.97 mGy.cm FINDINGS: Lung bases: The heart is enlarged and there is a small pericardial effusion. There are small bilateral pleural effusions with associated bibasilar consolidation. A tiny hiatal hernia is identified. Liver: The contrast-enhanced liver is enlarged, measuring 20 cm in length. The liver demonstrates diffusely diminished attenuation consistent with hepatic steatosis. An 8 mm hypodensity in the left lobe is indeterminant. There is no intrahepatic biliary ductal dilatation. The hepatic veins and portal veins are patent. Gallbladder: Unremarkable. Spleen: Normal in size and attenuation. Pancreas: The pancreas is edematous and there is extensive peripancreatic inflammatory stranding as well as peripancreatic fluid. The appearance is consistent with severe acute pancreatitis. There is diminished enhancement seen in the region of the pancreatic neck on axial image #183 which is highly concerning for pancreatic necrosis. There is interval gland Enhances homogeneously. There is no organized fluid collection to suggest pseudocyst. The splenic vein is patent. Adrenal glands: Unremarkable. Kidneys: The contrast enhanced kidneys are normal in size and without hydronephrosis. The kidneys enhance symmetrically. A circumaortic left renal vein is incidentally noted. Abdominal vasculature: The abdominal aorta is normal in course and caliber. Bowel: The small bowel and colon are normal in course and caliber. There is wall thickening in the duodenum, likely related to adjacent pancreatitis. The appendix is not visualized. Peritoneum: There is a small volume of abdominopelvic ascites. No intraperitoneal free air is seen. There is a moderate fat-containing umbilical hernia. Lymphadenopathy: None. Pelvic viscera: The there is mild median lobe hypertrophy of the prostate gland. The bladder is normal as visualized. Skeletal structures: No lytic or blastic lesions are seen. Mild degenerative change and scoliosis is noted in the lumbosacral spine. IMPRESSION: 1. Findings are consistent with severe acute pancreatitis. 2. There is diminished perfusion seen in the region of the pancreatic neck which is highly concerning for pancreatic necrosis. The remainder of the gland enhances homogeneously. 3. There is no organized fluid collection to suggest pseudocyst. The splenic vein is patent. 4. Hepatomegaly and hepatic steatosis. 5. There is a small volume of abdominopelvic ascites. 6. Small pleural effusions with bibasilar consolidation. This could represent atelectasis and/or an infectious/inflammatory pneumonitis. Clinical correlation will be required. 7. Cardiomegaly. 8. Additional findings as detailed above. Assessment & Plan Severe pancreatitis with possibility of portion that may have necrosis Continue conservative management Cholecystectomy after resolution of pancreatitis.
[2016-08-29 22:52] VITALS: BP 166/88; PULSE 76; TEMP 37; O2SAT 94
[2016-08-30] MEDS: NSS + 20MEQ KCL 1000ML 1,000 ML IV SCH ×5 (01:07→23:04)
[2016-08-30 07:01] VITALS: PULSE 72; O2SAT 94
[2016-08-30] MEDS: ALBUT/IPRATROP 3MG/0.5MG NEB 3 ML VIAL INH SCH ×2 (07:01→12:00)
[2016-08-30 07:21] VITALS: BP 166/86; PULSE 79; TEMP 37.2; O2SAT 95
[2016-08-30] MEDS: ENOXAPARIN 40 MG/0.4 ML SYR SQ SCH (08:30)
--- NOTE | 2016-08-30 10:25 | Surgery Progress Note ---
Surgery Progress Note Date of Service Aug 30, 2016. Subjective + ambulating, + pain controlled, No SOB, No bowel movement, No chest pain, No nausea, No vomiting really hungry and agitated. Would like something to eat/drink. abdominal pain improving. + hunger pains Difficulty sleeping Objective Vital Signs: Date Time Temp Pulse Resp B/P Pulse Ox O2 Delivery O2 Flow Rate FiO2 08/30/16 08:10 Room Air 08/30/16 07:21 37.2 79 18 166/86 95 Nasal Cannula 2.0 Humidified Oxygen 08/30/16 07:01 72 16 94 Nasal Cannula 2.0 08/29/16 23:40 Nasal Cannula 2.0 08/29/16 22:52 37.0 76 16 166/88 94 Nasal Cannula 2.0 Humidified Oxygen 08/29/16 16:30 Nasal Cannula 2.0 08/29/16 15:13 69 16 98 Nasal Cannula 2.0 08/29/16 15:11 37.3 74 18 169/93 92 Nasal Cannula 2.0 Humidified Oxygen General Appearance: WD/WN, no apparent distress Head: normocephalic, atraumatic Respiratory/Chest: chest non-tender, lungs clear, normal breath sounds, no respiratory distress, no accessory muscle use Cardiovascular: regular rate, rhythm, no murmur Abdomen: non distended, soft, + tenderness (slight tenderness to palpation, no peritonitis, rigidity or guarding) Extremities: normal range of motion Laboratory Results: Results Past 24 Hours Test 08/30/16 05:15 Range/Units Lipase 171 73-393 U/L Diagnostic Interpretation: CT scan of abdomen and pelvis 08/28/16 IMPRESSION: 1. Findings are consistent with severe acute pancreatitis. 2. There is diminished perfusion seen in the region of the pancreatic neck which is highly concerning for pancreatic necrosis. The remainder of the gland enhances homogeneously. 3. There is no organized fluid collection to suggest pseudocyst. The splenic vein is patent. 4. Hepatomegaly and hepatic steatosis. 5. There is a small volume of abdominopelvic ascites. 6. Small pleural effusions with bibasilar consolidation. This could represent atelectasis and/or an infectious/inflammatory pneumonitis. Clinical correlation will be required. 7. Cardiomegaly. 8. Additional findings as detailed above. Assessment & Plan Acute Gallstones Pancreatitis with necrotizing pancreatitis - vital signs stable - abdominal pain improving - very hungry, been 5 days since last meal - Lipase 171 today - abdominal examination with tenderness however no peritonitis or rigidity Insomnia Plan: Start Benadryl 25 mg IV BID prn insomnia Start clear liquids, advise patient to take it slowly repeat labs tomorrow will repeat CT scan of abdomen and pelvis tomorrow Continue IV pain medication prn Dr. Gama has seen and examined patient agrees with above stated findings and treatment plan. clear liquids I interviewed and examined this patient and I agree with the above note.
[2016-08-30] MEDS: PANTOprazole INJ 40 MG in SYRINGE 0 ML IV SCH (10:26)
[2016-08-30] MEDS ORDERED: DiphenhydrAMINE HCL 50 MG/ML VIAL IV PRN (10:30)
[2016-08-30 12:37] VITALS: PULSE 77; O2SAT 93
--- NOTE | 2016-08-30 14:34 | Progress Note ---
Subjective Date of Service: Aug 30, 2016. Subjective Pt evaluation today including: conversation w/ patient, conversation w/ family , physical exam, chart review, lab review, review of studies, conversation w/ architecture consultant, review of inpatient medication list Feeling better, no abdominal pain, tolerate some clear liquid diet, no fever or chill, no palpitation, no dizziness, no cough /sputum, has been up and walk in the hallway Problem List Medical Problems: (1) Biliary colic Status: Acute (2) Pancreatitis Status: Acute (3) Vomiting Status: Acute Review of Systems Constitutional: No chills, No fatigue, No fever, No problem reported, No sweats , No weakness, No weight loss Eyes: No diplopia, No discharge, No eye pain, No redness, No worsening of vision ENT: No dental problems, No hearing loss, No nasal symptoms, No sore throat, No tinnitus, No trouble swallowing, No unusual epistaxis Respiratory: No cough, No dyspnea at rest, No dyspnea on exertion, No hemoptysis, No shortness of breath, No sputum, No wheezing Cardiac: No PND, No chest pain, No claudication, No edema, No orthopnea, No palpitations Abdomen: No constipation, No diarrhea, No nausea, No pain, No vomiting Musculoskeletal: No calf pain, No joint pain, No muscle pain, No swelling Male : No dysuria, No hematuria, No incontinence, No nocturia more than once/ night, No slowing stream, No urinary frequency Neurologic: No balance problems, No memory loss, No numbness/tingling, No paralysis, No vertigo, No weakness Psychiatric: No anhedonism, No anxiety, No depression symptoms, No insomnia, No substance abuse Heme: No abnormal bleeding/bruising, No clotting problems, No night sweats, No swollen lymph nodes Endo: No excessive thirst, No excessive urination, No fatigue Skin: No bleeding, No color change, No itch, No new/changing skin lesions, No rash Objective Vital Signs Date Time Temp Pulse Resp B/P Pulse Ox O2 Delivery O2 Flow Rate FiO2 08/30/16 12:37 77 16 93 Nasal Cannula 2.0 08/30/16 08:10 Room Air 08/30/16 07:21 37.2 79 18 166/86 95 Nasal Cannula 2.0 Humidified Oxygen 08/30/16 07:01 72 16 94 Nasal Cannula 2.0 08/29/16 23:40 Nasal Cannula 2.0 08/29/16 22:52 37.0 76 16 166/88 94 Nasal Cannula 2.0 Humidified Oxygen 08/29/16 16:30 Nasal Cannula 2.0 08/29/16 15:13 69 16 98 Nasal Cannula 2.0 08/29/16 15:11 37.3 74 18 169/93 92 Nasal Cannula 2.0 Humidified Oxygen Physical Exam General Appearance: WD/WN, no apparent distress, + thin Eyes: normal inspection, PERRL, EOMI, sclerae normal ENT: normal ENT inspection, hearing grossly normal, pharynx normal Neck: supple, no adenopathy, thyroid normal, no JVD, no carotid bruits, trachea midline Respiratory/Chest: chest non-tender, lungs clear, normal breath sounds, no respiratory distress, no accessory muscle use Cardiovascular: regular rate, rhythm, no edema, no gallop, no JVD, no murmur Abdomen: normal bowel sounds, non tender, soft, no organomegaly, no pulsatile mass Extremities: normal range of motion, non-tender, normal inspection, no pedal edema, no calf tenderness, normal capillary refill, pelvis stable 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, no motor/sensory deficits, alert, normal mood/affect, oriented x 3 Skin: normal color, warm/dry, no rash Lymphatic: no adenopathy Laboratory Results Last 24 Hours Test 08/30/16 05:15 Lipase 171 U/L Assessment and Plan 61 yo male with acute gall stone pancreatitis which is necrotizing pancreatitis admitted on 08/26/19 17 - Acute gallstone severe necrotizing pancreatitis: Stable slowly improving Repeat abdominal CT shows necrotizing pancreatitis on 08/28/2016 General conditions slowly improving, lipase and transaminases trending down, white count was once up the day before, trends down yesterday, no labs today Discussed with surgeon, patient general condition seems improving clinically, although he is having severe pancreatitis, we'll not give antibiotic for now, we 'll repeat white blood cell count tomorrow and repeat CT of abdomen tomorrow GI and surgeon's input appreciated - Episodes of Hypoxia, stable possible improved, possible COPD exacerbation, history of tobacco abuse disorder, current continue's cigarette smoking,, differential diagnosis include COPD, or because of fluid overload from ivf , Chest x-ray was done yesterday, no us no pleural effusion, no pulmonary edema, Planning to taper off oxygen if able to Continue to do IR every 2 hours when awake Continue nebulizer treatment as needed MRCP confirmed gall stones and sludge in gall bladder, no choledocholithiasis, no cholecystitis results in below: 1. Findings are consistent with severe acute pancreatitis. 2. Cholelithiasis without convincing evidence of acute cholecystitis. 3. The liver appears enlarged and there is trace perihepatic ascites. 4. There is no intrahepatic or extrahepatic biliary ductal dilatation. There is no choledocholithiasis. We'll continue NSS to 200cc/hr, Morphine PRN for pain, keep NPO , will not advanced diet because still complaining of pain and required IV pain medicine Was on Zosyn, which was stopped yesterday because no evidence of bacterial infection continue Protonix general surgery consulted to discuss timing of cholecystectomy, will place the consultation, will also request GI consult because of abdominal pain not improving repeat CBC and CMP and lipase in the morning - DVT prophylaxis: Lovenox Plan: As above , clear liquid diet, fluids, follow-up abdominal CT and labs Continued [facility] stay due to: multiple IV medications needed Discharge planning: home
[2016-08-30 15:24] VITALS: BP 169/87; PULSE 64; TEMP 37.5; O2SAT 94
[2016-08-30] MEDS: IPRATROPIUM BROMIDE/ALBUTEROL respimat INH INH SCH ×2 (16:24→22:02)
[2016-08-30 17:30] VITALS: O2SAT 85
[2016-08-30 23:05] VITALS: BP 170/85; PULSE 66; TEMP 37.4; O2SAT 92
[2016-08-31 01:50] VITALS: BP 158/88
[2016-08-31] MEDS: NSS + 20MEQ KCL 1000ML 1,000 ML IV SCH ×4 (05:15→18:20)
[2016-08-31 07:25] VITALS: BP 180/90; PULSE 70; TEMP 36.6; O2SAT 95
[2016-08-31 07:39] LABS: BASO % 0.2 %; BASO ABS # 0.02 K/uL (0-0.2); COMPLETE YES; EOS % 0.3 %; HEMATOCRIT 35.3 % (42-52); IG% 0.3 %; LYMPH % 9.3 %; LYMPH ABS # 1.14 K/uL (1.2-3.4); MEAN CELL VOLUME 89.4 fL (80-100); MEAN CORPUSCULAR HEMOGLOBIN 31.4 pg (25-34); MEAN CORPUSCULAR HGB CONC 35.1 g/dl (32-36); MEAN PLATELET VOLUME 8.9 fL (7.4-10.4); MONO % 10.7 %; NEUT % 79.2 %; PLATELET COUNT 196 K/uL (130-400); RED BLOOD COUNT 3.95 M/uL (4.7-6.1); WHITE BLOOD COUNT 12.29 K/uL (4.8-10.8)
--- NOTE | 2016-08-31 08:27 | Surgery Progress Note ---
Surgery Progress Note Date of Service Aug 31, 2016. Subjective + bowel movement (felt much better after), No nausea, No vomiting Feels better today Pain not completely resolved Objective Vital Signs: Date Time Temp Pulse Resp B/P Pulse Ox O2 Delivery O2 Flow Rate FiO2 08/31/16 07:25 36.6 70 16 180/90 95 Nasal Cannula 2.0 08/31/16 01:50 158/88 08/31/16 01:00 Nasal Cannula 2.0 Humidified Oxygen 08/30/16 23:05 37.4 66 16 170/85 92 Nasal Cannula 2.0 Humidified Oxygen 08/30/16 19:35 Nasal Cannula 2.0 08/30/16 17:30 85 Room Air 08/30/16 15:24 37.5 64 18 169/87 94 Nasal Cannula 2.0 Humidified Oxygen 08/30/16 12:37 77 16 93 Nasal Cannula 2.0 Abdomen: + distended (mild), + 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) Laboratory Results: Results Past 24 Hours Test 08/31/16 07:20 Range/Units White Blood Count 12.29 4.8-10.8 K/uL Red Blood Count 3.95 4.7-6.1 M/uL Hemoglobin 12.4 14.0-18.0 g/dL Hematocrit 35.3 42-52 % Mean Corpuscular Volume 89.4 80-100 fL Mean Corpuscular Hemoglobin 31.4 25-34 pg Mean Corpuscular Hemoglobin Concent 35.1 32-36 g/dl Platelet Count 196 130-400 K/uL Mean Platelet Volume 8.9 7.4-10.4 fL Neutrophils (%) (Auto) 79.2 % Lymphocytes (%) (Auto) 9.3 % Monocytes (%) (Auto) 10.7 % Eosinophils (%) (Auto) 0.3 % Basophils (%) (Auto) 0.2 % Neutrophils # (Auto) 9.73 1.4-6.5 K/uL Lymphocytes # (Auto) 1.14 1.2-3.4 K/uL Monocytes # (Auto) 1.32 0.11-0.59 K/uL Eosinophils # (Auto) 0.04 0-0.5 K/uL Basophils # (Auto) 0.02 0-0.2 K/uL RDW Standard Deviation 42.9 36.4-46.3 fL RDW Coefficient of Variation 13.1 11.5-14.5 % Immature Granulocyte % (Auto) 0.3 % Immature Granulocyte # (Auto) 0.04 0.00-0.02 K/uL Assessment & Plan Severe pancreatitis with possible necrotizing component. For repeat CT scan today. Continue clears for now I interviewed and examined this patient and I agree with the above note.
[2016-08-31] MEDS ORDERED: OPTIRAY 320 IV PRN (08:30)
[2016-08-31 08:41] LABS: BUN/CREATININE RATIO 16.9 (10-20); CALCIUM 8.3 mg/dl (8.5-10.1); CREATININE 0.54 mg/dl (0.60-1.40); MAGNESIUM 2.1 mg/dl (1.8-2.4); POTASSIUM 3.7 mmol/L (3.5-5.1)
--- NOTE | 2016-08-31 09:19 | DIAGNOSTIC IMAGING REPORT ---
CT SCAN OF THE ABDOMEN WITH IV CONTRAST CLINICAL HISTORY: Necrotizing pancreatitis. COMPARISON STUDY: Abdominal CT dated 08/28/2016. MRCP dated 08/26/2016. TECHNIQUE: Following the IV administration of 93 cc of Optiray 320, CT scan of the abdomen is performed from the lung bases to the pelvic inlet. Images are reviewed in the axial, sagittal, and coronal planes. IV contrast was administered without complication. Automated dose control exposure was utilized. CT DOSE: 705.08 mGycm FINDINGS: Lung bases: The heart is enlarged and there is a small pericardial effusion. There are small to moderate bilateral pleural effusions with associated bibasilar consolidation, increased in size from 08/28/2016. A tiny hiatal hernia is identified. Liver: The contrast-enhanced liver is enlarged, measuring 20 cm in length. The liver demonstrates diffusely diminished attenuation consistent with hepatic steatosis. An 8 mm hypodensity in the left lobe likely represents a cyst but is indeterminant. There is no intrahepatic biliary ductal dilatation. The hepatic veins and portal veins are patent. Gallbladder: Unremarkable. Spleen: Normal in size and attenuation. Pancreas: The pancreas is edematous and there is extensive peripancreatic inflammatory stranding as well as peripancreatic fluid. The appearance is consistent with severe acute pancreatitis. Again noted is diminished enhancement seen in the region of the pancreatic neck on axial image #167 which is consistent with pancreatic necrosis. The remainder of the gland enhances homogeneously. There is no organized fluid collection to suggest pseudocyst. The splenic vein is patent. Adrenal glands: Unremarkable. Kidneys: The contrast enhanced kidneys are normal in size and without hydronephrosis. The kidneys enhance symmetrically. A circumaortic left renal vein is incidentally noted. Abdominal vasculature: The abdominal aorta is normal in course and caliber. Bowel: Visualized portions of the small bowel and colon are normal in course and caliber. There is wall thickening in the duodenum, likely related to adjacent pancreatitis. The appendix is normal as visualized. Peritoneum: There is a small volume of abdominal ascites. No intraperitoneal free air is seen. There is a moderate fat-containing umbilical hernia. Lymphadenopathy: None. Skeletal structures: No lytic or blastic lesions are seen. Mild degenerative change and scoliosis is noted in the lumbosacral spine. IMPRESSION: 1. Findings of necrotizing pancreatitis have not significantly changed from study performed 3 days previously. See above. 2. There is no organized fluid collection to suggest pseudocyst. The splenic vein is patent. 3. Enlarging pleural effusions with bibasilar consolidation. 4. Hepatomegaly and hepatic steatosis. 5. There is a small volume of abdominal ascites. 6. Additional changes as above. Electronically signed by: Prince Eastman M.D. 08/31/2016 9:17 AM Dictated Date/Time: 08/31/2016 9:12 AM
[2016-08-31] MEDS ORDERED: AMLODIPINE BESYLATE 5 MG TAB PO ONE (10:45)
--- NOTE | 2016-08-31 10:53 | Progress Note ---
Subjective Date of Service: Aug 31, 2016. Subjective Pt evaluation today including: conversation w/ patient, conversation w/ family , physical exam, chart review, lab review, review of studies, conversation w/ obiee consultant, review of inpatient medication list Was trying to taper off oxygen, was not able to do it because Osat dropped to 85% in room air, has been continue on oxygen, patient does not report any subjective sob Reported has feeling abdominal full ness like overeat. No more abdominal pain , he reported has one bowel movement which make his abdomen feel more comfortable Problem List Medical Problems: (1) Biliary colic Status: Acute (2) Pancreatitis Status: Acute (3) Vomiting Status: Acute Review of Systems Constitutional: No chills, No fatigue, No fever, No problem reported, No sweats , No weakness, No weight loss Eyes: No diplopia, No discharge, No eye pain, No redness, No worsening of vision ENT: No dental problems, No hearing loss, No nasal symptoms, No sore throat, No tinnitus, No trouble swallowing, No unusual epistaxis Respiratory: No cough, No dyspnea at rest, No dyspnea on exertion, No hemoptysis, No shortness of breath, No sputum, No wheezing Cardiac: No PND, No chest pain, No claudication, No edema, No orthopnea, No palpitations Abdomen: No constipation, No diarrhea, No nausea, No pain, No vomiting Musculoskeletal: No calf pain, No joint pain, No muscle pain, No swelling Male : No dysuria, No hematuria, No incontinence, No nocturia more than once/ night, No slowing stream, No urinary frequency Neurologic: No balance problems, No memory loss, No numbness/tingling, No paralysis, No vertigo, No weakness Psychiatric: No anhedonism, No anxiety, No depression symptoms, No insomnia, No substance abuse Heme: No abnormal bleeding/bruising, No clotting problems, No night sweats, No swollen lymph nodes Endo: No excessive thirst, No excessive urination, No fatigue Skin: No bleeding, No color change, No itch, No new/changing skin lesions, No rash Objective Vital Signs Date Time Temp Pulse Resp B/P Pulse Ox O2 Delivery O2 Flow Rate FiO2 08/31/16 08:00 Nasal Cannula 2.0 08/31/16 07:25 36.6 70 16 180/90 95 Nasal Cannula 2.0 08/31/16 01:50 158/88 08/31/16 01:00 Nasal Cannula 2.0 Humidified Oxygen 08/30/16 23:05 37.4 66 16 170/85 92 Nasal Cannula 2.0 Humidified Oxygen 08/30/16 19:35 Nasal Cannula 2.0 08/30/16 17:30 85 Room Air 08/30/16 15:24 37.5 64 18 169/87 94 Nasal Cannula 2.0 Humidified Oxygen 08/30/16 12:37 77 16 93 Nasal Cannula 2.0 Physical Exam General Appearance: WD/WN, no apparent distress, + obese Eyes: normal inspection, PERRL, EOMI, sclerae normal ENT: normal ENT inspection, hearing grossly normal, pharynx normal Neck: supple, no adenopathy, thyroid normal, no JVD, no carotid bruits, trachea midline Respiratory/Chest: chest non-tender, lungs clear, normal breath sounds, no respiratory distress, no accessory muscle use, + decreased breath sounds Cardiovascular: regular rate, rhythm, no edema, no gallop, no JVD, no murmur Abdomen: normal bowel sounds, non tender, soft, no organomegaly, no pulsatile mass Extremities: normal range of motion, non-tender, normal inspection, no pedal edema, no calf tenderness, normal capillary refill, pelvis stable 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, no motor/sensory deficits, alert, normal mood/affect, oriented x 3 Skin: normal color, warm/dry, no rash Lymphatic: no adenopathy Laboratory Results Last 24 Hours Test 08/31/16 07:20 White Blood Count 12.29 K/uL Red Blood Count 3.95 M/uL Hemoglobin 12.4 g/dL Hematocrit 35.3 % Mean Corpuscular Volume 89.4 fL Mean Corpuscular Hemoglobin 31.4 pg Mean Corpuscular Hemoglobin Concent 35.1 g/dl Platelet Count 196 K/uL Mean Platelet Volume 8.9 fL Neutrophils (%) (Auto) 79.2 % Lymphocytes (%) (Auto) 9.3 % Monocytes (%) (Auto) 10.7 % Eosinophils (%) (Auto) 0.3 % Basophils (%) (Auto) 0.2 % Neutrophils # (Auto) 9.73 K/uL Lymphocytes # (Auto) 1.14 K/uL Monocytes # (Auto) 1.32 K/uL Eosinophils # (Auto) 0.04 K/uL Basophils # (Auto) 0.02 K/uL RDW Standard Deviation 42.9 fL RDW Coefficient of Variation 13.1 % Immature Granulocyte % (Auto) 0.3 % Immature Granulocyte # (Auto) 0.04 K/uL Sodium Level 138 mmol/L Potassium Level 3.7 mmol/L Chloride Level 106 mmol/L Carbon Dioxide Level 22 mmol/L Anion Gap 10.0 mmol/L Blood Urea Nitrogen 9 mg/dl Creatinine 0.54 mg/dl Est Creatinine Clear Calc Drug Dose 157.1 ml/min Estimated GFR () 131.3 Estimated GFR (Non- 113.3 BUN/Creatinine Ratio 16.9 Random Glucose 92 mg/dl Calcium Level 8.3 mg/dl Magnesium Level 2.1 mg/dl Lipase 223 U/L Assessment and Plan 61 yo male with acute gall stone pancreatitis which is necrotizing pancreatitis admitted on 08/26/19 17 - Acute gallstone severe necrotizing pancreatitis: Stable slowly improving Repeat abdominal CT shows necrotizing pancreatitis on 08/28/[address] shows shows stable, no fluid pocket, on 08/30/2016 Was temporally had leukocytosis WBC up to 17,000 and, which has been come down nicely in 2 days, today continue decreased General conditions slowly improving, lipase and transaminases trending down, Discussed with surgeon, patient general condition seems improving clinically, although he is having severe pancreatitis, we'll not give antibiotic for now, Surgeon Will plan when will be the best timing for the cholecystectomy GI and surgeon's input appreciated - Hypoxia, stable possible improved, possible multiple reason, such as COPD exacerbation, history of tobacco abuse, fluid overload, bilateral pleural effusion With a little bit worse bilateral pleural effusion in abdominal CT studies COPD exacerbation, continue nebulizer treatment, decrease IV fluid to 90, encourage by mouth intake and up and walk history of tobacco abuse disorder, current continue's cigarette smoking, Continue to do NC O2, IR every 2 hours when awake Continue nebulizer treatment scheduled and as needed - Accelerated hypertension, has not sitting up PCP for 2-3 years, possible baseline was high, possible from the fluid infusion, will Amlodipine po for now , by mouth for now, and adjusting dose MRCP confirmed gall stones and sludge in gall bladder, no choledocholithiasis, no cholecystitis results in below: 1. Findings are consistent with severe acute pancreatitis. 2. Cholelithiasis without convincing evidence of acute cholecystitis. 3. The liver appears enlarged and there is trace perihepatic ascites. 4. There is no intrahepatic or extrahepatic biliary ductal dilatation. There is no choledocholithiasis. We'll continue NSS to 200cc/hr, Morphine PRN for pain, keep NPO , will not advanced diet because still complaining of pain and required IV pain medicine Was on Zosyn, which was stopped yesterday because no evidence of bacterial infection continue Protonix general surgery consulted to discuss timing of cholecystectomy, will place the consultation, will also request GI consult because of abdominal pain not improving repeat CBC and CMP and lipase in the morning - DVT prophylaxis: Lovenox Plan: As above , continue clear liquid diet, decrease fluids, increase activity follow-up blood pressure Continued [facility] stay due to: multiple IV medications needed Discharge planning: home
--- NOTE | 2016-08-31 11:07 | Medical Student: [facility] ---
Med Student Progress Note Date of Service Aug 31, 2016. Subjective This is a 61 y/o male who presented on 06/25 with severe abdominal pain and was subsequently diagnosed with severe pancreatitis and acute cholecystitis. Patient has been NPO on IV hydration and pain medication since admission. Patient had bowel movement today and has been continuing to take some PO sips of fluid, tolerating well. Patient rates pain at 5/10 today. He continues to complain of feelings of satiety which are uncomfortable. Repeat CT scan today shows no change in pancreatic necrosis. It does demonstrate increasing pleural effusions. Although patient does not complain of SOB it was noted that his oxygenation dropped to 85% on room air. Patient denies nausea/vomiting/diarrhea , chest pain, MARY, headaches, fevers, chills. Review of Systems Constitutional: No chills, No fever, No sweats Respiratory: No cough, No shortness of breath, No sputum, No wheezing Abdomen: + pain, No diarrhea, No nausea, No vomiting Male : No dysuria Objective Vital Signs Date Time Temp Pulse Resp B/P Pulse Ox O2 Delivery O2 Flow Rate FiO2 08/31/16 08:00 Nasal Cannula 2.0 08/31/16 07:25 36.6 70 16 180/90 95 Nasal Cannula 2.0 08/31/16 01:50 158/88 08/31/16 01:00 Nasal Cannula 2.0 Humidified Oxygen 08/30/16 23:05 37.4 66 16 170/85 92 Nasal Cannula 2.0 Humidified Oxygen 08/30/16 19:35 Nasal Cannula 2.0 08/30/16 17:30 85 Room Air 08/30/16 15:24 37.5 64 18 169/87 94 Nasal Cannula 2.0 Humidified Oxygen 08/30/16 12:37 77 16 93 Nasal Cannula 2.0 Physical Exam General Appearance: WD/WN, no apparent distress Respiratory/Chest: chest non-tender, lungs clear, no respiratory distress, no accessory muscle use, + decreased breath sounds (Decreased at bases b/l ) Cardiovascular: regular rate, rhythm, no edema, no gallop, no JVD, no murmur Abdomen: normal bowel sounds, soft, + hepatomegaly Extremities: normal range of motion, non-tender 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: alert, normal mood/affect, oriented x 3 Skin: normal color, warm/dry, no rash Laboratory Results Last 24 Hours Test 2/16/17 07:20 White Blood Count 12.29 K/uL Red Blood Count 3.95 M/uL Hemoglobin 12.4 g/dL Hematocrit 35.3 % Mean Corpuscular Volume 89.4 fL Mean Corpuscular Hemoglobin 31.4 pg Mean Corpuscular Hemoglobin Concent 35.1 g/dl Platelet Count 196 K/uL Mean Platelet Volume 8.9 fL Neutrophils (%) (Auto) 79.2 % Lymphocytes (%) (Auto) 9.3 % Monocytes (%) (Auto) 10.7 % Eosinophils (%) (Auto) 0.3 % Basophils (%) (Auto) 0.2 % Neutrophils # (Auto) 9.73 K/uL Lymphocytes # (Auto) 1.14 K/uL Monocytes # (Auto) 1.32 K/uL Eosinophils # (Auto) 0.04 K/uL Basophils # (Auto) 0.02 K/uL RDW Standard Deviation 42.9 fL RDW Coefficient of Variation 13.1 % Immature Granulocyte % (Auto) 0.3 % Immature Granulocyte # (Auto) 0.04 K/uL Sodium Level 138 mmol/L Potassium Level 3.7 mmol/L Chloride Level 106 mmol/L Carbon Dioxide Level 22 mmol/L Anion Gap 10.0 mmol/L Blood Urea Nitrogen 9 mg/dl Creatinine 0.54 mg/dl Est Creatinine Clear Calc Drug Dose 157.1 ml/min Estimated GFR () 131.3 Estimated GFR (Non- 113.3 BUN/Creatinine Ratio 16.9 Random Glucose 92 mg/dl Calcium Level 8.3 mg/dl Magnesium Level 2.1 mg/dl Lipase 223 U/L Medications Medications Administered Medications (Trade) Dose Ordered Sig/Nabila Route Start Time Stop Time Status Last Admin Dose Admin Sodium Chloride (Nss 1000ml) 2,000 ml @ 999 mls/hr Q2H1M STAT IV 08/26/16 16:24 08/26/16 18:24 DC 08/26/16 16:35 999 MLS/HR Ondansetron HCl (Zofran Inj) 4 mg NOW STAT IV 08/26/16 16:24 08/26/16 16:26 DC 08/26/16 16:34 4 MG Morphine Sulfate (MoRPHine SULFATE INJ) 4 mg Q30M PRN IV 08/26/16 16:30 08/26/16 22:56 DC 08/26/16 21:26 4 MG Ketorolac Tromethamine 30 mg 30 mg NOW STAT IV 08/26/16 16:24 08/26/16 16:26 DC 08/26/16 16:35 30 MG Promethazine HCl 6.25 mg/Sodium Chloride 50.25 ml @ 204 mls/hr NOW STAT IV 08/26/16 16:24 08/26/16 16:38 DC 08/26/16 16:51 204 MLS/HR Piperacillin Sod/ Tazobactam Sod/ Dextrose (Zosyn Iv/D5 100ml) 115 ml @ 28.75 mls/ hr Q8H IV 08/27/16 02:00 08/27/16 08:16 DC 08/27/16 02:24 28.75 MLS/HR Piperacillin Sod/ Tazobactam Sod (Zosyn Iv) 4.5 gm NOW STAT IV 08/26/16 19:49 08/26/16 20:04 DC 08/26/16 21:28 4.5 GM Acetaminophen (Tylenol Tab) 650 mg Q4H PRN PO 08/26/16 20:00 09/25/16 19:59 08/31/16 01:09 650 MG Diphenhydramine HCl (Benadryl Inj) 25 mg Q4H PRN IV 08/26/16 20:00 09/25/16 19:59 08/30/16 10:26 25 MG Ondansetron HCl (Zofran Inj) 4 mg Q6H PRN IV 08/26/16 20:00 09/25/16 19:59 08/28/16 07:29 4 MG Morphine Sulfate (MoRPHine SULFATE INJ) 2 mg Q2H PRN IV 08/26/16 20:00 09/09/16 19:59 08/29/16 16:33 2 MG Morphine Sulfate 4 mg 4 mg Q2H PRN IV 08/26/16 20:00 09/09/16 19:59 08/29/16 23:41 4 MG Potassium Chloride/Sodium Chloride 1,000 ml @ 90 mls/hr Q11H7M IV 08/26/16 23:00 09/26/16 22:59 08/31/16 05:15 150 MLS/HR Pantoprazole Sodium 40 mg/ Syringe 10 ml @ 5 mls/min DAILY@11 IV 08/27/16 11:00 09/26/16 10:59 08/30/16 10:26 5 MLS/MIN Promethazine HCl/ Sodium Chloride (Phenergan Inj/ Nss 50ml) 51 ml @ 204 mls/hr Q6H PRN IV 08/26/16 20:15 09/25/16 20:14 08/27/16 01:19 204 MLS/HR Lorazepam (Ativan Inj) 1 mg NOW STAT IV 08/26/16 20:04 08/26/16 20:17 DC 08/26/16 21:26 1 MG Enoxaparin Sodium (Lovenox Inj) 40 mg QAM SQ 08/28/16 09:00 09/27/16 08:59 08/30/16 08:30 40 MG Bisacodyl 10 mg 10 mg NOW ONCE SD 08/28/16 10:15 08/28/16 10:16 DC 08/28/16 10:28 10 MG Acetaminophen (Ofirmev Iv) 100 ml @ 400 mls/hr 1330 ONCE IV 08/28/16 13:30 08/28/16 13:44 DC 08/28/16 13:40 400 MLS/HR Albuterol/ Ipratropium (Duoneb) 3 ml QIDR INH 08/29/16 12:00 08/30/16 13:05 DC 08/30/16 07:01 3 ML Albuterol/ Ipratropium (Combivent Respimat Inh) 1 puffs QID INH 08/30/16 17:00 09/29/16 16:59 08/30/16 22:02 1 PUFFS Assessment and Plan Assessment and Plan: This is a 61 y/o male who has been admitted for severe pancreatitis. Severe necrotizing pancreatitis, likely due to gallstone. -vs stable, tolerating liquid, had BM today -Repeat abdominal CT shows today shows no change in necrosis, no fluid accumulation, no pseudocyst -Leukocytosis trending downward, at 12.29 today -lipase and transaminases trending down -Per surgeon, will decide when to do cholecystectomy, likely in a few weeks once inflammation has resolved Hypoxia, worsening pleural effusion. Pneumonia vs. fluid overload, vs. COPD, vs. atelectasis -worsening pleural effusion per repeat CT today -continue nebulizer treatment -decrease IV fluid to 90, hopefully resolve any fluid overload -encourage ambulation and respiratory therapy with spirometry HTN -continue amlodipine PO DVT prophylaxis -enoxaparin SQ QAM Disposition -depending on oxygenation status, could be d/c home tomorrow Continued [facility] stay due to: abnormal vital signs, multiple IV medications needed
[2016-08-31] MEDS: IPRATROPIUM BROMIDE/ALBUTEROL respimat INH INH SCH ×4 (12:00→20:40)
[2016-08-31] MEDS: ENOXAPARIN 40 MG/0.4 ML SYR SQ SCH (12:00)
[2016-08-31] MEDS: PANTOprazole INJ 40 MG in SYRINGE 0 ML IV SCH (12:01)
[2016-08-31 14:39] VITALS: BP 157/89; PULSE 76; O2SAT 93
[2016-08-31 15:07] VITALS: BP 163/86; PULSE 71; TEMP 37.3; O2SAT 91
[2016-08-31 22:48] VITALS: BP 152/70; PULSE 67; TEMP 37.3; O2SAT 92
[2016-09-01] MEDS: NSS + 20MEQ KCL 1000ML 1,000 ML IV SCH (02:34)
[2016-09-01 06:29] LABS: AMYLASE 40 U/L (25-115)
[2016-09-01 07:03] VITALS: BP 163/86; PULSE 69; TEMP 36.9; O2SAT 93
--- NOTE | 2016-09-01 07:46 | Surgery Progress Note ---
Surgery Progress Note Date of Service Sep 01, 2016. Subjective + bowel movement, No nausea, No vomiting Very little pain Objective Vital Signs: Date Time Temp Pulse Resp B/P Pulse Ox O2 Delivery O2 Flow Rate FiO2 09/01/16 07:03 36.9 69 16 163/86 93 Nasal Cannula 1.0 Humidified Oxygen 08/31/16 23:50 Nasal Cannula Humidified Oxygen 08/31/16 22:48 37.3 67 16 152/70 92 Nasal Cannula 2.0 Humidified Oxygen 08/31/16 19:10 Nasal Cannula 2.0 Humidified Oxygen 08/31/16 16:55 Room Air 08/31/16 15:07 37.3 71 20 163/86 91 Nasal Cannula 2.0 Humidified Oxygen 08/31/16 14:39 76 18 157/89 93 Room Air 08/31/16 08:00 Nasal Cannula 2.0 Abdomen: non distended, soft, + tenderness (upper abdomen unchanged) Laboratory Results: Results Past 24 Hours Test 09/01/16 05:13 Range/Units Amylase Level 40 25-115 U/L Lipase 256 73-393 U/L Assessment & Plan Severe pancreatitis, necrotizing component confirmed on CT scan yesterday. Will need cholecystectomy after pancreatitis resolves, Potential for abscess formation and pseudocyst formation Continue clears for now, advance diet very slowly, limit fat intake
[2016-09-01 08:08] VITALS: O2SAT 94
[2016-09-01 08:14] VITALS: O2SAT 94
[2016-09-01] MEDS ORDERED: PANTOprazole SOD 40 MG TAB PO SCH (09:00)
[2016-09-01] MEDS ORDERED: AMLODIPINE BESYLATE 5 MG TAB PO SCH (09:00)
[2016-09-01] MEDS: IPRATROPIUM BROMIDE/ALBUTEROL respimat INH INH SCH ×2 (09:20→12:56)
[2016-09-01] MEDS: ENOXAPARIN 40 MG/0.4 ML SYR SQ SCH (09:20)
--- NOTE | 2016-09-01 09:45 | Medical Student: [facility] ---
Med Student Progress Note Date of Service Sep 01, 2016. Subjective This is a 61 y/o male who has been admitted for moderate-severe pancreatitis likely induced by acute cystitis. Patient is still experiencing pain and satiety but is doing better overall. He is tolerating liquid diet. At time of interview patient is having tea and jello without difficulty. He is curious about how to advance his diet over time. He is oxygenating well on room air, and is interested in being discharged home. Patient has had bowel movements and is ambulating. He denies chest pain, SOB, nausea, vomiting, diarrhea, dysuria. Review of Systems Constitutional: No chills, No fever, No sweats Respiratory: No cough, No sputum, No wheezing Cardiac: No chest pain Male : No dysuria Heme: No abnormal bleeding/bruising Skin: No rash Objective Vital Signs Date Time Temp Pulse Resp B/P Pulse Ox O2 Delivery O2 Flow Rate FiO2 09/01/16 08:14 94 Room Air 09/01/16 08:08 94 Room Air 09/01/16 07:03 36.9 69 16 163/86 93 Nasal Cannula 1.0 Humidified Oxygen 08/31/16 23:50 Nasal Cannula Humidified Oxygen 08/31/16 22:48 37.3 67 16 152/70 92 Nasal Cannula 2.0 Humidified Oxygen 08/31/16 19:10 Nasal Cannula 2.0 Humidified Oxygen 08/31/16 16:55 Room Air 08/31/16 15:07 37.3 71 20 163/86 91 Nasal Cannula 2.0 Humidified Oxygen 08/31/16 14:39 76 18 157/89 93 Room Air Physical Exam General Appearance: WD/WN, no apparent distress Neck: supple, no adenopathy, thyroid normal Respiratory/Chest: chest non-tender, lungs clear, normal breath sounds, no respiratory distress, no accessory muscle use Cardiovascular: regular rate, rhythm, no edema, no gallop, no JVD, no murmur Abdomen: normal bowel sounds, non tender, soft Extremities: normal range of motion 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: alert, normal mood/affect, oriented x 3 Skin: normal color, warm/dry Lymphatic: no adenopathy Laboratory Results Last 24 Hours Test 09/01/16 05:13 Amylase Level 40 U/L Lipase 256 U/L Assessment and Plan Assessment and Plan: This is a 61 y/o male with moderate-severe pancreatitis significant for pancreatic necrosis. Severe necrotizing pancreatitis, likely due to gallstone. -vs stable, tolerating liquids, had BM today -Repeat abdominal CT shows yesterday shows no change in necrosis, no fluid accumulation, no pseudocyst. However, necrosis and his severity of pancreatitis put him at high risk of pseudocyst formation, complications. -Leukocytosis continues to trend downward. -lipase and transaminases trending down -Per surgeon, will decide when to do cholecystectomy, likely in a few weeks once inflammation has resolved Hypoxia, worsening pleural effusion. Pneumonia vs. fluid overload, vs. COPD, vs. atelectasis -oxygenating well on room air today, no SOB -continue nebulizer treatment -encourage ambulation and respiratory therapy with spirometry HTN -continue amlodipine PO DVT prophylaxis -enoxaparin SQ QAM Disposition -as his oxygenation has improved and he is tolerating liquids, could consider discharge today -must continue liquid diet and advance diet with great caution. Have discussed diet extensively with patient and instructed to avoid fatty fluids/foods. Continued [facility] stay due to: multiple IV medications needed Discharge planning: home
[2016-09-01 12:57] VITALS: BP 163/86; PULSE 69; TEMP 36.9; O2SAT 94
[2016-09-01] MEDS ORDERED: NRV5 PO (13:55)
[2016-09-01] MEDS ORDERED: PRT40 PO (13:55)
--- NOTE | 2016-09-01 13:55 | Discharge Instructions ---
Discharge Instructions Admission Reason for Admission: Acute Gallstone Pancreatitis Discharge Discharge Diagnosis / Problem: pancratitis Discharge Goals Goal(s): Decrease discomfort, Improve function, Increase independence, Improve disease control, Improve nutritional status, Learn about illness, Diagnostic testing, Therapeutic intervention, Prevent Disease Progression, Specific goals Activity Recommendations Activity Limitations: resume your previous activity . Instructions / Follow-Up Instructions / Follow-Up you have acute gall stone pancreatitis which is necrotizing pancreatitis , it is better you had Hypoxia, resolved you may have mild COPD I want to to follow up with primary care physician you ahve history of tobacco abuse disorder, you need to follow up with Dr. Gama in 2-3 weeks for planning cholecystectomy after pancreatitis resolves, low fat diet Rx has transmit to your pharmacy - you need to follow up with your primary care physician in 1 week, - take medication as instructed, never overdose or any misuse, or take with alcohol, because misuse of medicine may cause organ damage or , call your primary care physician if have questions of medicaitons. - call your primary care physician OR go to local emergency room if has any fever/chill, chest pain, shortness of breathing, nausea/vomiting/abdominal pain , facial droop/slurry speech/local weakness, or if has any questions. - fall precaution - diet as instructed - you need to follow up with your subspecialist - you should understand that it is important to follow up the above instruction , and "not following the above instruction" may cause delayed or missed care of your medical conditions which may cause permanent organ damage and even . Current Hospital Diet Patient's current hospital diet: Clear Liquid Diet Discharge Diet Recommended Diet: Low Fat Diet Pending Studies Studies pending at discharge: no Medical Emergencies . Who to Call and When: Medical Emergencies: If at any time you feel your situation is an emergency, please call 911 immediately. . Non-Emergent Contact Non-Emergency issues call your: Primary Care Provider, Surgeon . . "Provider Documentation" section prepared by Edis Guerrero. VTE Core Measure Inpt VTE Proph given/why not?: SCD's
--- NOTE | 2016-09-01 17:24 | Discharge Summary ---
Discharge Summary Admission Date: Aug 26, 2016 at 19:50 Discharge Date: Sep 01, 2016 Principal Diagnosis: acute gall stone pancreatitis which is necrotizing pancreatitis Problems/Secondary Diagnoses: Hypoxia episode may be related to mild COPD Procedures: No Consultations: GI consult and surgeon consult Medication Reconciliation New Medications: Amlodipine Besylate (Amlodipine Besylate) 5 Mg Tab 5 MG PO QAM for 30 Days, #30 TAB Pantoprazole (Pantoprazole Sodium) 40 Mg Tab 40 MG PO QAM for 30 Days, #30 TAB Discharge Exam Doing well up and walk, taper off oxygen, no complaining, tolerate clear liquid diet Review of Systems: Constitutional: No chills, No fatigue, No fever, No problem reported, No sweats, No weakness, No weight loss Eyes: No diplopia, No discharge, No eye pain, No problem reported, No redness, No worsening of vision Respiratory: No cough, No dyspnea at rest, No dyspnea on exertion, No hemoptysis, No problem reported, No shortness of breath, No sputum, No wheezing Cardiovascular: No PND, No chest pain, No claudication, No edema, No orthopnea, No palpitations, No problem reported Abdomen: No GI bleeding, No constipation, No diarrhea, No nausea, No pain, No problem reported, No vomiting Musculoskeletal: No calf pain, No joint pain, No muscle pain, No problem reported, No swelling Genitourinary - Male: No dysuria, No hematuria, No impotence, No lesions, No penile discharge, No problem reported, No urinary frequency, No urinary hesitancy, No urinary incontinence, No urinary retention, No urinary urgency Neurologic: No balance problems, No memory loss, No numbness/tingling, No paralysis, No problem reported, No vertigo, No weakness Endocrine: No excessive thirst, No excessive urination, No fatigue, No problem reported Hematologic / Lymphatic: No abnormal bleeding/bruising, No clotting problems , No night sweats, No problem reported, No swollen lymph nodes Integumentary: No bleeding, No color change, No itch, No new/changing skin lesions, No problem reported, No rash Physical Exam: General Appearance: WD/WN, no apparent distress Eyes: normal inspection, PERRL ENT: normal ENT inspection, hearing grossly normal Neck: supple, no adenopathy Respiratory/Chest: chest non-tender, + decreased breath sounds Cardiovascular: regular rate, rhythm, no edema, no gallop Abdomen / GI: normal bowel sounds, non tender, soft, no organomegaly Extremities: normal inspection, no calf tenderness, normal capillary refill 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: 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, no motor/sensory deficits , alert, normal mood/affect, normal reflexes Hospital Course 61 yo male with acute gall stone pancreatitis which is necrotizing pancreatitis admitted on 08/26/19 17 - Acute gallstone severe necrotizing pancreatitis: Stable slowly improving Repeat abdominal CT shows necrotizing pancreatitis on 08/28/[address] shows shows stable, no fluid pocket, on 08/30/2016 Was temporally had leukocytosis WBC up to 17,000 and, which has been come down nicely in 2 days, today continue decreased General conditions slowly improving, lipase and transaminases trending down, Discussed with surgeon, patient general condition seems improving clinically, although he is having severe pancreatitis, we did not give antibiotic for now, Continue improve, up and walk, tolerated diet Surgeon Will plan when will be the best timing for the cholecystectomy GI and surgeon's input appreciated - Hypoxia, stable possible improved, possible multiple reason, such as COPD exacerbation, history of tobacco abuse, fluid overload, bilateral pleural effusion With a little bit worse bilateral pleural effusion in abdominal CT studies Totally resolved, do not need the home O2 COPD exacerbation, continue nebulizer treatment, decrease IV fluid to 90, encourage by mouth intake and up and walk history of tobacco abuse disorder, current continue's cigarette smoking, Continue to do NC O2, IR every 2 hours when awake Continue nebulizer treatment scheduled and as needed - Accelerated hypertension, has not seeing up PCP for 2-3 years, possible baseline was high, possible from the fluid infusion, will Amlodipine po for now , by mouth for now, and adjusting dose MRCP confirmed gall stones and sludge in gall bladder, no choledocholithiasis, no cholecystitis results in below: 1. Findings are consistent with severe acute pancreatitis. 2. Cholelithiasis without convincing evidence of acute cholecystitis. 3. The liver appears enlarged and there is trace perihepatic ascites. 4. There is no intrahepatic or extrahepatic biliary ductal dilatation. There is no choledocholithiasis. - DVT prophylaxis: Lovenox Instructions / Follow-Up you have acute gall stone pancreatitis which is necrotizing pancreatitis , it is better you had Hypoxia, resolved you may have mild COPD I want to to follow up with primary care physician you ahve history of tobacco abuse disorder, you need to follow up with Dr. Gama in 2-3 weeks for planning cholecystectomy after pancreatitis resolves, low fat diet Rx has transmit to your pharmacy - you need to follow up with your primary care physician in 1 week, - take medication as instructed, never overdose or any misuse, or take with alcohol, because misuse of medicine may cause organ damage or , call your primary care physician if have questions of medicaitons. - call your primary care physician OR go to local emergency room if has any fever/chill, chest pain, shortness of breathing, nausea/vomiting/abdominal pain , facial droop/slurry speech/local weakness, or if has any questions. - fall precaution - diet as instructed - you need to follow up with your subspecialist - you should understand that it is important to follow up the above instruction , and "not following the above instruction" may cause delayed or missed care of your medical conditions which may cause permanent organ damage and even . Total Time Spent: Greater than 30 minutes This includes examination of the patient, discharge planning, medication reconciliation, and communication with other providers. Discharge Instructions Please refer to the electronic Patient Visit Report (Discharge Instructions) for additional information. Additional Copies To Shantel Pope C.R.N.P
[2016-09-13] MEDS ORDERED: PANT40TA PO (10:50)
[2016-09-13] MEDS ORDERED: AMLO-110 PO (10:50)
== END 2016-09-01 14:25 | disposition home or self-care (01) | DRG 444 ==
LOC: ENRESERVDT → ENRESERVTM → C.EDB 16:07 → C.3E 19:50
PROVIDERS: ADMIT Hospitalist; ATTEND Hospitalist
DX: K80.00 Calculus of gallbladder with acute cholecystitis without obstruction (principal); K85.11 Biliary acute pancreatitis with uninfected necrosis; J44.1 Chronic obstructive pulmonary disease with (acute) exacerbation; E78.00 Pure hypercholesterolemia, unspecified; Z91.040 Latex allergy status; R33.9 Retention of urine, unspecified; K76.0 Fatty (change of) liver, not elsewhere classified; I10 Essential (primary) hypertension; Z87.891 Personal history of nicotine dependence; R09.02 Hypoxemia

== ENCOUNTER → 2016-09-07 | Outpatient (CLI) | payer BC ==
[~2016-09-07] MED LIST changes: +AMLO-110 PO; -CHERATUSSIN AC; +MTR/400 PO; +NRV5 PO; +PANT40TA PO; +PRT40 PO
[2016-09-07 12:26] LABS: BASO % 0.5 %; BASO ABS # 0.05 K/uL (0-0.2); COMPLETE YES; EOS % 1.5 %; HEMATOCRIT 42.2 % (42-52); IG% 0.2 %; LYMPH % 27.9 %; LYMPH ABS # 2.75 K/uL (1.2-3.4); MEAN CELL VOLUME 91.7 fL (80-100); MEAN CORPUSCULAR HEMOGLOBIN 31.3 pg (25-34); MEAN CORPUSCULAR HGB CONC 34.1 g/dl (32-36); MEAN PLATELET VOLUME 9.1 fL (7.4-10.4); NEUT % 61.9 %; PLATELET COUNT 415 K/uL (130-400); WHITE BLOOD COUNT 9.85 K/uL (4.8-10.8)
[2016-09-07 13:07] LABS: BLOOD UREA NITROGEN 14 mg/dl (7-18); BUN/CREATININE RATIO 13.8 (10-20); CALCIUM 9.4 mg/dl (8.5-10.1); CARBON DIOXIDE 29 mmol/L (21-32); CHLORIDE 99 mmol/L (98-107); GLUCOSE 97 mg/dl (70-99); POTASSIUM 4.2 mmol/L (3.5-5.1); SODIUM 135 mmol/L (136-145)
== END | disposition home or self-care (01) ==
LOC: C.LABPVFM 10:51
PROVIDERS: ATTEND Nurse Practitioner
DX: K85.90 Acute pancreatitis without necrosis or infection, unspecified (principal)

== ENCOUNTER → 2016-09-18 | Outpatient (CLI) | payer BC ==
[~2016-09-18] MED LIST changes: -NRV5 PO; -PRT40 PO
--- NOTE | 2016-09-18 08:41 | DIAGNOSTIC IMAGING REPORT ---
CHEST 2 VIEWS ROUTINE HISTORY: Abnormal chest xrays COMPARISON: Chest 08/29/2016. FINDINGS: The lungs are clear. Cardiac silhouette is normal in size. No pleural effusions. No pneumothorax. IMPRESSION: No acute process. Electronically signed by: Jassi Diamond M.D. 09/18/2016 8:40 AM Dictated Date/Time: 09/18/2016 8:39 AM
== END | disposition home or self-care (01) ==
LOC: C.RADPV 08:16
PROVIDERS: ATTEND Nurse Practitioner
DX: R93.8 Abnormal findings on diagnostic imaging of other specified body structures (principal)

== ENCOUNTER → 2016-09-22 | Outpatient (CLI) | payer BC ==
[~2016-09-22] MED LIST changes: +FENTANYL CITRATE INJ 50 MCG/1 ML 2 ML VIAL ONE; +LIDOCAINE HCL 2% 2 ML VIAL (20MG/ML) ONE; +MIDAZOLAM HCL 1 MG/ML 2ML VIAL ONE; +ONDANSETRON INJ 2 MG/ML 2 ML VIAL ONE; +OPTIRAY 320 IV PRN; +PHENYLEPHRINE 100MCG/ML 5ML SYR ONE; +PHENYLEPHRINE HCL INJ 10 MG/ML VIAL ONE; +PROPOFOL IV EMULSION 10 MG/ML 20 ML VIAL IV ONE; +ROCURONIUM BROMIDE 10 MG/ML 5 ML VIAL ONE; +SUCCINYLCHOLINE CHLORIDE 20 MG/ML 10 ML VIAL IV ONE
--- NOTE | 2016-09-22 09:31 | DIAGNOSTIC IMAGING REPORT ---
CT SCAN OF THE ABDOMEN AND PELVIS WITH IV CONTRAST CLINICAL HISTORY: Cholelithiasis. History of necrotizing pancreatitis. COMPARISON STUDY: Abdominal CT scans dated 08/31/2016 and 08/28/2016. TECHNIQUE: Following the IV administration of 102 cc of Optiray 320, CT scan of the abdomen and pelvis is performed from the lung bases to the proximal femora. Images are reviewed in the axial, sagittal, and coronal planes. IV contrast was administered without complication. Automated dose control exposure was utilized. CT DOSE: 425.91 mGy.cm FINDINGS: Lung bases: The heart is top normal in size and there is trace pericardial fluid. Pleural effusions have resolved from previous. A tiny hiatal hernia is identified. Liver: The contrast-enhanced liver is enlarged, measuring 20 cm in length. The liver demonstrates diffusely diminished attenuation consistent with hepatic steatosis. An 8 mm hypodensity in the left lobe is indeterminant and unchanged. There is no intrahepatic biliary ductal dilatation. The hepatic veins and portal veins are patent. Focal fat is noted adjacent to the falciform ligament. Gallbladder: Unremarkable. Spleen: Normal in size and attenuation. Pancreas: There is mild glandular atrophy of the pancreas. There is mild persistent peripancreatic stranding, significantly decreased from 08/31/2016. Again seen are foci of nonenhancing parenchyma within the posterior head, neck, and proximal body consistent with pancreatic necrosis. There is a thick-walled fluid collection in the region of the pancreatic head and neck on image #168 which measures 2.8 x 1.8 cm, as well as a smaller adjacent collection in the proximal pancreatic body on image #167 measuring 1.5 cm. These likely represent small pseudocysts. The pancreatic duct is normal in caliber. The splenic vein is patent. Adrenal glands: Unremarkable. Kidneys: The contrast enhanced kidneys are normal in size and without hydronephrosis. The kidneys enhance symmetrically. A circumaortic left renal vein is incidentally noted. Abdominal vasculature: The abdominal aorta is normal in course and caliber. Bowel: The small bowel and colon are normal in course and caliber. There is wall thickening in the duodenum, likely related to adjacent pancreatitis. The appendix is well-visualized and normal. Peritoneum: No intraperitoneal free air or abdominal ascites is seen. There is a moderate fat-containing umbilical hernia, unchanged from prior studies. Lymphadenopathy: None. Pelvic viscera: The there is mild median lobe hypertrophy of the prostate gland. The bladder is normal as visualized. Skeletal structures: No lytic or blastic lesions are seen. Mild degenerative change is noted in the lumbosacral spine. IMPRESSION: 1. Peripancreatic inflammation has markedly improved from 08/31/2016, and there is evidence of pancreatic necrosis involving the posterior head, neck, and proximal pancreatic body. 2. There are now 2 small fluid collections identified in the regions of pancreatic necrosis. The larger collection measures up to 2.8 cm and the appearance is typical for small pseudocysts. 3. The splenic vein is patent. The pancreatic duct is normal in caliber. 4. Hepatomegaly and hepatic steatosis. 5. A fat-containing umbilical hernia is unchanged. 6. Pleural effusions have resolved from previous. 7. Additional findings as detailed above. Electronically signed by: Prince Eastman M.D. 09/22/2016 9:29 AM Dictated Date/Time: 09/22/2016 9:19 AM
== END | disposition home or self-care (01) ==
LOC: C.CTS 08:37
PROVIDERS: ATTEND Surgery
DX: K80.19 Calculus of gallbladder with other cholecystitis with obstruction (principal); R16.0 Hepatomegaly, not elsewhere classified; K76.0 Fatty (change of) liver, not elsewhere classified; K42.9 Umbilical hernia without obstruction or gangrene

== ENCOUNTER 2016-10-02 05:12 | Day surgery (SDC) | payer BC ==
[2016-09-13 10:50] VITALS: BMI 28.0
[~2016-10-02] VITALS: Ht 172.7 cm; Wt 84.1 kg
[~2016-10-02 05:12] MED LIST changes: -FENTANYL CITRATE INJ 50 MCG/1 ML 2 ML VIAL ONE; -LIDOCAINE HCL 2% 2 ML VIAL (20MG/ML) ONE; -MIDAZOLAM HCL 1 MG/ML 2ML VIAL ONE; -MTR/400 PO; -ONDANSETRON INJ 2 MG/ML 2 ML VIAL ONE; -OPTIRAY 320 IV PRN; -PHENYLEPHRINE 100MCG/ML 5ML SYR ONE; -PHENYLEPHRINE HCL INJ 10 MG/ML VIAL ONE; -PROPOFOL IV EMULSION 10 MG/ML 20 ML VIAL IV ONE; -ROCURONIUM BROMIDE 10 MG/ML 5 ML VIAL ONE; -SUCCINYLCHOLINE CHLORIDE 20 MG/ML 10 ML VIAL IV ONE
[2016-10-02 05:42] VITALS: BP 136/81; PULSE 72; TEMP 36.6; O2SAT 97; Ht 172.7 cm; Wt 84.1 kg
[2016-10-02] MEDS ORDERED: LACTATED RINGER'S 1000ML 1,000 ML IV SCH (06:00)
[2016-10-02] MEDS ORDERED: CEFAZOLIN 2000 MG/60 ML D5W IV SCH (06:00)
[2016-10-02] MEDS ORDERED: GLYCOPYRROLATE INJ 0.2 MG/ML VIAL ONE ×2 (06:29→06:36)
[2016-10-02] MEDS ORDERED: FENTANYL CITRATE INJ 50 MCG/1 ML 2 ML VIAL ONE (06:29)
[2016-10-02] MEDS ORDERED: ROCURONIUM BROMIDE 10 MG/ML 5 ML VIAL ONE (06:29)
[2016-10-02] MEDS ORDERED: NEOSTIGMINE METHYLSULFATE 5 MG/5 ML SYR ONE (06:29)
[2016-10-02] MEDS ORDERED: LIDOCAINE HCL 2% 2 ML VIAL (20MG/ML) ONE (06:29)
[2016-10-02] MEDS ORDERED: ONDANSETRON INJ 2 MG/ML 2 ML VIAL ONE (06:29)
[2016-10-02] MEDS ORDERED: DEXAMETHASONE SOD INJ 4 MG/ML VIAL ONE (06:29)
[2016-10-02] MEDS ORDERED: MIDAZOLAM HCL 1 MG/ML 2ML VIAL ONE (06:29)
[2016-10-02] MEDS ORDERED: PROPOFOL IV EMULSION 10 MG/ML 20 ML VIAL IV ONE ×2 (06:29→08:25)
[2016-10-02] MEDS ORDERED: HEPARIN SOD (PORCINE) 1000 UNIT/ML 10 ML VIAL ONE (06:33)
[2016-10-02] MEDS ORDERED: CEFAZOLIN SOD 1 GM VIAL ONE (06:33)
--- NOTE | 2016-10-02 07:04 | History & Physical Bridge Note ---
H&P Re-Evaluation Bridge Note: I have examined the patient, reviewed the History & Physical and in the interval since the performance of the History & Physical I have noted the following changes of clinical significance: No changes noted
[2016-10-02] MEDS ORDERED: ATROPINE SULFATE 0.1 MG/ML 5ML SYR IV PRN (07:15)
[2016-10-02] MEDS ORDERED: LABETALOL HCL IV 5 MG/ML 20ML IV PRN (07:15)
[2016-10-02] MEDS ORDERED: KETOROLAC TROMETHAMINE 30 MG/ML VIAL IV. PRN (07:15)
[2016-10-02] MEDS ORDERED: ONDANSETRON INJ 2 MG/ML 2 ML VIAL IV PRN ×2 (07:15→08:45)
[2016-10-02] MEDS ORDERED: HYDROmorphone INJ 2 MG/ML SYR/VIAL IV PRN (07:15)
--- NOTE | 2016-10-02 08:08 | DIAGNOSTIC IMAGING REPORT ---
INTRAOPERATIVE CHOLANGIOGRAM HISTORY: Post cholecystectomy. FLUOROSCOPY TIME: 15 seconds. FINDINGS: Fluoroscopy was provided for an intraoperative cholangiogram status post cholecystectomy. Contrast was injected through the cystic duct remnant. Mild prominence of the common bile duct. Good flow contrast to the duodenum. No evidence for extravasation. No reflux to the pancreatic duct. Intrahepatic ducts are not opacified. Mildly distended but nevertheless unremarkable, bile duct with no evidence for choledocholithiasis Contrast extends into the small bowel. There is no intrahepatic bile duct dilatation. IMPRESSION: Fluoroscopy provided for an intraoperative cholangiogram status post cholecystectomy. No filling defects within the common bile duct. Mild increased diameter of the common duct with no evidence for choledocholithiasis Electronically signed by: Danilo Singh M.D. 10/02/2016 8:07 AM Dictated Date/Time: 10/02/2016 8:05 AM
[2016-10-02] MEDS: BUPIVACAINE 0.5 % 5 MG/1 ML MPF 30ML VIAL ONE ×2 (08:20→08:24)
[2016-10-02] MEDS ORDERED: SODIUM CHLORIDE 0.9% 1000ML 1,000 ML IV SCH (08:41)
--- NOTE | 2016-10-02 08:41 | [facility] Post Operative Brief Note ---
Immediate Operative Summary Operative Date Oct 02, 2016. Pre-Operative Diagnosis Calculus of gallbladder without cholecystitis, history of pancreatitis, umbilical hernia Post-Operative Diagnosis Calculus of gallbladder without cholecystitis, history of pancreatitis, umbilical hernia Procedure(s) Performed Laparoscopic Cholecystectomy with Cholangiogram; Umbilical Hernia Repair Surgeon Dr Danilo Gama Satellite Tv Technician Surgeon(s) Amelia Bernabe PA-C Estimated Blood Loss 5ml Findings See dictation Specimens A: gallbladder Drains None Anesthesia General Complication(s) None Disposition Recovery Room / PACU
--- NOTE | 2016-10-02 08:44 | Discharge Instructions ---
Discharge Instructions Date of Service Oct 02, 2016. Admission Reason for Admission: Calculus Of Gallbladder, Umbilical Hernia Discharge Discharge Diagnosis / Problem: Same Discharge Goals Goal(s): Decrease discomfort Activity Recommendations Activity Limitations: per Instructions/Follow-up section Lifting Limitations: no more than 10 pounds (for 6 weeks) Shower/Bathe: tomorrow (Shower only) . Instructions / Follow-Up Instructions / Follow-Up Post-Surgical ~ Discharge Instructions Activity Recommendations: - lifting limitation: (10 pounds for 6 weeks), - exercise/sex/sports limit: (nonstrenuous for 6 weeks), - driving or machine use limit: (none for 2 weeks), - Shower/bathe limit: (may shower beginning tomorrow) Diet: - Resume previous diet SPECIAL CARE INSTRUCTIONS: - May shower in 24 hours. Let water run over area and pat dry. - Leave steri strips on for one week. - Call the surgeon's office with any questions or concerns - - (ex. temperature higher than 101 degrees F, excessive bleeding or pain). MEDICATIONS: - Resume previous medications unless instructed otherwise by your surgeon. - Ibuprofen 600 mg every 6 hours with food - Percocet 1 every 4 hours, as needed for pain FOLLOW UP VISIT: - If not already scheduled, please call the office to schedule a two week follow-up appointment. Office number Current Hospital Diet Patient's current hospital diet: Discharge Diet Recommended Diet: Regular Diet Procedures Procedures Performed: Laparoscopic Cholecystectomy with Cholangiogram; Umbilical Hernia Repair Pending Studies Studies pending at discharge: no Medical Emergencies . Who to Call and When: Medical Emergencies: If at any time you feel your situation is an emergency, please call 911 immediately. . Non-Emergent Contact Non-Emergency issues call your: Primary Care Provider, Surgeon Call Non-Emergent contact if: your pain is worsening, wound has increased redness, wound has increased pain . "Provider Documentation" section prepared by Danilo Gama. VTE Core Measure Inpt VTE Proph given/why not?: Treatment not indicated
[2016-10-02] MEDS ORDERED: MoRPHine SULFATE 4 MG/ML 1 ML CARP\\VIAL IV PRN (08:45)
[2016-10-02] MEDS ORDERED: OXYCODONE/ACETAMINOPHEN 5-325 TAB PO PRN (08:45)
[2016-10-02 09:20] VITALS: BP 127/77; PULSE 66; TEMP 36.3; O2SAT 92
[2016-10-02 09:50] VITALS: BP 106/72; PULSE 65; O2SAT 93
[2016-10-02 10:20] VITALS: BP 112/70; PULSE 64; TEMP 36.3; O2SAT 95
--- NOTE | 2016-10-02 10:27 | OPERATIVE REPORT ---
DATE OF OPERATION: 10/02/2016 PREOPERATIVE DIAGNOSES: Cholelithiasis, history of pancreatitis and umbilical hernia. POSTOPERATIVE DIAGNOSES: Same. PROCEDURES: Laparoscopic cholecystectomy with intraoperative cholangiogram and repair of an umbilical hernia. SURGEON: Dr. Danilo Gama. PROGRAM CHECKER: Marta Bernabe PA-C. FINDINGS: The patient had a 1.5-cm fascial defect. There were no incarcerated contents. There was a protrusion of preperitoneal fat. The gallbladder had multiple tiny gravel-like stones. There were no large stones. There was no dilation of the gallbladder. The cystic duct was normal size. Cholangiogram showed free flow into the duodenum. There was only a little bit of flow up towards the common hepatic duct. The radicles were not seen. TECHNIQUE: The patient was given a general anesthetic and the area was prepped and draped in usual sterile fashion. Transverse incision was made below the umbilicus and carried down through to the subcutaneous tissue. The preperitoneal fat protruding through the umbilical hernia and hernia sac were dissected off the overlying dermis of the umbilical skin. It was then away from the surrounding tissues down to the edge of the fascia, which was identified. Some of the preperitoneal fat was removed using cautery. That allowed me to identify the sac. The introducer was then placed through the open sac. One stitch was used to close some of the fascia in order to try to prevent leaking of the gas. That was successful. The abdomen was then insufflated to a pressure of 15 mmHg with carbon dioxide. The upper midline, mid clavicular and anterior axillary introducers were placed under direct vision through small skin incisions. Traction was placed on the gallbladder beginning on the lateral side of the infundibulum and the peritoneum was opened. The peritoneum connective tissue and lymphatics were peeled down towards the common bile duct. The dissection was carried anteriorly and into the triangle of Calot, which was opened. The infundibulum was dissected away from the liver on the lateral side and then some on the medial side as well, which allowed better mobilization of the infundibulum that allowed me to identify the cystic duct and the cystic artery, which was located in the triangle of Calot. The cystic duct was skeletonized on the medial side, which allowed me then to establish a plane behind it isolating in 360 degrees and confirming the position of the cystic duct gallbladder junction. A clip was placed on the cystic duct near the junction with the gallbladder. The cystic duct was partially transected and the cholangiocatheter was placed into the lumen of the cystic duct. The balloon was inflated and was irrigated and there was no leak. Cholangiogram was performed with findings as above. The catheter was then removed. Three clips were placed on the proximal cystic duct and transection was completed. The cystic artery was then skeletonized. Two clips placed proximally, one near the gallbladder and it was divided. The gallbladder was then peeled off the liver bed. At the upper portion of the infundibulum, there was another tubular structure, which was either a large lymphatic or posterior branch of the artery, which was clipped prior to division. Once the gallbladder was peeled off the liver, using cautery was placed into an Endobag and brought out through the upper midline incision. The gallbladder had to be opened and the bile removed prior to being able to extract it within the bag, but that was able to be accomplished with ease. That introducer was replaced and the subdiaphragmatic and subhepatic spaces were irrigated. Irrigation was removed and that was repeated until the return was clear. The gallbladder bed of the liver was inspected and there was no bleeding. The previously placed clips were intact. Gas was allowed to escape and the introducers were removed. The fascia around the umbilical hernia was closed with interrupted 0 PDS and the fascia of the upper midline introducer site was closed with interrupted 0 Vicryl. The skin of all the incisions was closed with 4-0 Monocryl in either an interrupted or running subcuticular fashion. The skin was anesthetized with 0.5% Marcaine. The skin was cleansed, dried, benzoin placed, and Steri-Strips applied. Estimated blood loss was 5 mL, Sponge, needle and instrument counts were correct prior to closure. The patient tolerated the surgical procedure without complication and was transferred to recovery. I attest to the content of the Intraoperative Record and any orders documented therein. Any exceptio ns are noted below.
--- NOTE | 2016-10-02 11:09 | Anesthesiology Progress Note ---
Anesthesia Post Op Note Date & Time Oct 02, 2016 at 11:09 Vital Signs Pain Intensity: 0 Vital Signs Past 12 Hours Date Time Temp Pulse Resp B/P Pulse Ox O2 Delivery O2 Flow Rate FiO2 10/02/16 10:20 36.3 64 20 112/70 95 Nasal Cannula 2 10/02/16 09:50 65 20 106/72 93 Nasal Cannula 2 10/02/16 09:20 36.3 66 20 127/77 92 Nasal Cannula 2 10/02/16 09:10 36.5 74 14 127/76 97 Nasal Cannula 2 10/02/16 09:00 79 14 129/84 97 Nasal Cannula 4 10/02/16 08:50 88 16 130/86 98 Nasal Cannula 4 10/02/16 08:40 101 16 152/90 98 Mask 10 10/02/16 08:37 36.6 104 16 163/99 98 Mask 10 10/02/16 05:42 36.6 72 16 136/81 97 Room Air Notes Mental Status: alert / awake / arousable, participated in evaluation Pt Amnestic to Procedure: Yes Nausea / Vomiting: adequately controlled Pain: adequately controlled Airway Patency, RR, SpO2: stable & adequate BP & HR: stable & adequate Hydration State: stable & adequate Anesthetic Complications: no major complications apparent
[2016-10-02 11:20] VITALS: BP 123/71; PULSE 66; TEMP 36.3; O2SAT 97
[2016-10-02 12:15] VITALS: BP 124/77; PULSE 76; TEMP 36.4; O2SAT 95
== END 2016-10-02 12:30 | disposition home or self-care (01) ==
LOC: C.ACU 05:12
PROVIDERS: ATTEND Surgery
DX: K80.64 Calculus of gallbladder and bile duct with chronic cholecystitis without obstruction (principal); Z87.19 Personal history of other diseases of the digestive system; K42.9 Umbilical hernia without obstruction or gangrene; E78.00 Pure hypercholesterolemia, unspecified; I10 Essential (primary) hypertension; Z90.89 Acquired absence of other organs; Z91.040 Latex allergy status; Z87.891 Personal history of nicotine dependence; M54.5 Low back pain; E78.5 Hyperlipidemia, unspecified

== ENCOUNTER 2016-10-12 20:06 | Inpatient (IN) | payer BC ==
[~2016-10-12] VITALS: Ht 172.7 cm; Wt 83.9 kg
[2016-10-12] MEDS ORDERED: MTR/400 PO (21:29)
[2016-10-12] MEDS ORDERED: ONDANSETRON INJ 2 MG/ML 2 ML VIAL IV STA (22:03)
[2016-10-12] MEDS ORDERED: SODIUM CHLORIDE 0.9% 1000ML 1,000 ML IV STA (22:03)
[2016-10-12] MEDS ORDERED: SODIUM CHLORIDE 0.9% 1000ML 500 ML IV STA (22:03)
[2016-10-12 22:16] LABS: HEMATOCRIT 40.8 % (42-52); MEAN CELL VOLUME 88.5 fL (80-100); MEAN CORPUSCULAR HEMOGLOBIN 30.4 pg (25-34); MEAN CORPUSCULAR HGB CONC 34.3 g/dl (32-36); MEAN PLATELET VOLUME 8.8 fL (7.4-10.4); PLATELET COUNT 216 K/uL (130-400); RED BLOOD COUNT 4.61 M/uL (4.7-6.1); WHITE BLOOD COUNT 9.04 K/uL (4.8-10.8)
[2016-10-12 22:23] LABS: ALT/SGPT 500 U/L (12-78); BLOOD UREA NITROGEN 9 mg/dl (7-18); BUN/CREATININE RATIO 9.3 (10-20); CARBON DIOXIDE 27 mmol/L (21-32); CHLORIDE 104 mmol/L (98-107); GLUCOSE 190 mg/dl (70-99); POTASSIUM 3.7 mmol/L (3.5-5.1); SODIUM 140 mmol/L (136-145)
[2016-10-12 22:28] LABS: ALB/GLOB RATIO 1.1 (0.9-2); ALKALINE PHOSPHATASE 226 U/L (45-117); AST/SGOT 354 U/L (15-37)
--- NOTE | 2016-10-12 22:39 | DIAGNOSTIC IMAGING REPORT ---
CHEST ONE VIEW PORTABLE CLINICAL HISTORY: Abdominal pain. COMPARISON STUDY: Chest radiograph September 18, 2016. FINDINGS: Lung volumes are normal. There is no pneumothorax or pleural effusion. Linear left basilar opacity is suggestive of atelectasis. Cardiac size is normal. Mediastinal contours are normal. There is no evidence of pulmonary edema. IMPRESSION: No acute cardiopulmonary findings. Electronically signed by: Rodolfo Shea M.D. 10/12/2016 10:37 PM Dictated Date/Time: 10/12/2016 10:36 PM
[2016-10-12] MEDS ORDERED: OPTIRAY 320 IV PRN (23:30)
--- NOTE | 2016-10-12 23:50 | EMERGENCY ROOM VISIT NOTE ---
History Report prepared by Bartolo: Vivian Segura Under the Supervision of: Dr. Prince Massey M.D. First contact with patient: 21:33 Chief Complaint: ABDOMINAL PAIN Stated Complaint: PANCREATITIS Nursing Triage Summary: Pt reports he had his gall bladder and hernia surgery 9 days ago. Pt developed abdominal last week but its worse. +nausea. Pt reports it feels like when he had pancreatitis. History of Present Illness The patient is a 61 year old male who presents to the Emergency Room with complaints of worsening upper abdominal pain beginning 10 hours prior to arrival. He notes that the pain radiates around to his back. He notes that the pain began around lunch time. He states he sat down and began to feel better. The pain the worsened again around dinner time and he took Advil which did not help relieve the pain. He has been experiencing back pain as well. The patient is experiencing shortness of breath and nausea. He denies vomiting. The patient had his gallbladder removed and an umbilical hernia repair 10 days ago. He notes that he has been recovering from surgery well. The patient does note that his symptoms today he also experienced one week ago but they resolved within a few hours. Source of History: patient Onset: 10 hours [employer] Position: abdomen (upper) Timing: worsening Associated Symptoms: + SOB, + nausea, No vomiting Review of Systems See HPI for pertinent positives & negatives. A total of 10 systems reviewed and were otherwise negative. Past Medical & Surgical Medical Problems: (1) Acute gallstone pancreatitis (2) Elevated LFTs (3) Hyperlipemia Family History Patient reports no known family medical history. Social History Smoking Status: Former Smoker Alcohol Use: occasionally Drug Use: none Marital Status: Occupation Status: employed Current/Historical Medications Scheduled Amlodipine (Norvasc), 5 MG PO QAM Pantoprazole (Protonix), 40 MG PO QAM Scheduled PRN Ibuprofen (Ibuprofen), 400 MG PO Q4 PRN for Pain Allergies Coded Allergies: Latex1 -Allergic Contact Dermititis (Verified Allergy, Unknown, RASH, 10/13) NO KNOWN DRUG ALLERGIES (Verified Allergy, Unknown, ., 10/13/16) Physical Exam Vital Signs Date Time Temp Pulse Resp B/P Pulse Ox O2 Delivery O2 Flow Rate FiO2 10/13/16 05:13 76 18 115/70 96 10/13/16 04:35 54 18 116/69 94 Room Air 10/13/16 01:48 53 18 119/71 96 Room Air 10/12/16 23:51 65 18 129/81 98 Room Air 10/12/16 22:16 64 20 113/81 97 Room Air 10/12/16 20:18 36.4 52 20 130/72 96 Room Air Physical Exam GENERAL: Patient is in no acute distress. HEENT: No acute trauma, normocephalic atraumatic, mucous membranes moist, no nasal congestion, no scleral icterus. NECK: No stridor, no adenopathy, no meningismus, trachea is midline. LUNGS: Clear to auscultation bilaterally, no wheeze, no rhonchi, breath sounds equal. HEART: Without murmurs gallops or rubs, regular rate and rhythm. ABDOMEN: Soft, tenderness to epigastric region, bowel sounds positive, no hernias, no peritonitis. Surgical incisions healing well, no signs of infection. EXTREMITIES: No cyanosis or edema, full range of motion of all the joints without pain or difficulty, no signs for acute trauma. NEUROLOGIC: Oriented x 3, no acute motor or sensory deficits, no focal weakness. SKIN: No rash, no jaundice, no diaphoresis. Medical Decision & Procedures ER Provider Diagnostic Interpretation: Chest x-ray shows no free air, pneumonia or mediastinal widening. Abdominal and pelvis CT demonstrates some trace fluid and fat stranding in the gallbladder fossa. This was felt consistent with a postsurgical seroma or hematoma. No abscess was seen. There was no biliary dilatation. There was no free air. There was no bowel obstruction. No right lower quadrant inflammatory changes to suggest acute appendicitis. ECG: NSR with a rate of 60. No acute ischemia, no ectopy. Laboratory Results 10/12/16 21:55 Red Blood Count 4.61, Mean Corpuscular Volume 88.5, Mean Corpuscular Hemoglobin 30.4, Mean Corpuscular Hemoglobin Concent 34.3, Mean Platelet Volume 8.8, Neutrophils (%) (Auto) 82.7, Lymphocytes (%) (Auto) 10.6, Monocytes (%) (Auto) 5.9, Eosinophils (%) (Auto) 0.3, Basophils (%) (Auto) 0.4, Neutrophils # (Auto) 7.47, Lymphocytes # (Auto) 0.96, Monocytes # (Auto) 0.53, Eosinophils # (Auto) 0.03, Basophils # (Auto) 0.04 10/12/16 21:55 Test 10/12/16 21:55 10/13/16 06:16 White Blood Count 9.04 K/uL (4.8-10.8) Red Blood Count 4.61 M/uL (4.7-6.1) Hemoglobin 14.0 g/dL (14.0-18.0) Hematocrit 40.8 % (42-52) Mean Corpuscular Volume 88.5 fL (80-100) Mean Corpuscular Hemoglobin 30.4 pg (25-34) Mean Corpuscular Hemoglobin Concent 34.3 g/dl (32-36) Platelet Count 216 K/uL (130-400) Mean Platelet Volume 8.8 fL (7.4-10.4) Neutrophils (%) (Auto) 82.7 % Lymphocytes (%) (Auto) 10.6 % Monocytes (%) (Auto) 5.9 % Eosinophils (%) (Auto) 0.3 % Basophils (%) (Auto) 0.4 % Neutrophils # (Auto) 7.47 K/uL (1.4-6.5) Lymphocytes # (Auto) 0.96 K/uL (1.2-3.4) Monocytes # (Auto) 0.53 K/uL (0.11-0.59) Eosinophils # (Auto) 0.03 K/uL (0-0.5) Basophils # (Auto) 0.04 K/uL (0-0.2) RDW Standard Deviation 43.0 fL (36.4-46.3) RDW Coefficient of Variation 13.2 % (11.5-14.5) Immature Granulocyte % (Auto) 0.1 % Immature Granulocyte # (Auto) 0.01 K/uL (0.00-0.02) Anion Gap 9.0 mmol/L (3-11) Est Creatinine Clear Calc Drug Dose 81.8 ml/min Estimated GFR () 93.7 Estimated GFR (Non- 80.9 BUN/Creatinine Ratio 9.3 (10-20) Calcium Level 9.0 mg/dl (8.5-10.1) Total Bilirubin 2.0 mg/dl (0.2-1) Aspartate Amino Transf (AST/SGOT) 354 U/L (15-37) Alanine Aminotransferase (ALT/SGPT) 500 U/L (12-78) Alkaline Phosphatase 226 U/L (45-117) Troponin I < 0.015 ng/ml (0-0.045) Total Protein 7.0 gm/dl (6.4-8.2) Albumin 3.7 gm/dl (3.4-5.0) Globulin 3.3 gm/dl (2.5-4.0) Albumin/Globulin Ratio 1.1 (0.9-2) Lipase 166 U/L (73-393) Urine Color YELLOW Urine Appearance CLEAR (CLEAR) Urine pH 8.0 (4.5-7.5) Urine Specific Grant 1.035 (1.000-1.030) Urine Protein NEG (NEG) Urine Glucose (UA) NEG (NEG) Urine Ketones NEG (NEG) Urine Occult Blood NEG (NEG) Urine Nitrite NEG (NEG) Urine Bilirubin NEG (NEG) Urine Urobilinogen NEG (NEG) Urine Leukocyte Esterase NEG (NEG) Laboratory results reviewed by me. Medications Administered Medications (Trade) Dose Ordered Sig/Nabila Route Start Time Stop Time Status Last Admin Dose Admin Sodium Chloride (Nss 1000ml) 500 ml @ 999 mls/hr Q31M STAT IV 10/12/16 22:03 10/12/16 22:33 DC 10/12/16 22:16 999 MLS/HR Ondansetron HCl 4 mg 4 mg NOW STAT IV 10/12/16 22:03 10/12/16 22:05 DC 10/12/16 22:16 4 MG Sodium Chloride (Nss 1000ml) 1,000 ml @ 200 mls/hr Q5H STAT IV 10/12/16 22:03 10/13/16 03:02 DC 10/12/16 22:16 200 MLS/HR Ciprofloxacin/ Dextrose (Cipro / D5w) 400 mg NOW STAT IV 10/13/16 05:50 10/13/16 05:51 DC 10/13/16 06:06 400 MG ED Course 6: The patient was evaluated in room B3. A complete history and physical exam was performed. 3: Sodium Chloride 1,000 ml @ 200 mls/hr IV, Zofran Inj 4 mg IV, Sodium Chloride 500 ml @ 999 mls/hr IV. 2329: I informed the patient that his liver enzymes are elevated. The case is being assumed by Dr. Licea, an MRCP is pending. Medical Decision The patient is a 61 year old male who presents to the ED with complaints of abdominal pain. Differential diagnoses considered include cardiac ischemia, AL , biliary colic, bowel rupture, pancreatitis, musculoskeletal pain, pneumonia, viral illness. There is no leukocytosis or concerning anemia. No significant electrolyte abnormality or kidney failure. Liver enzyme testing is elevated consistent with a hepatitis. There is no pancreatitis. Urinalysis does not show infection. Chest film shows no pneumonia or pneumothorax. There was no free air. EKG showed a sinus rhythm, no acute ischemia. Cardiac enzyme testing times one was not consistent with acute cardiac injury. Abdominal and pelvis CT shows a possible small hematoma in the right upper quadrant at the surgical site. The biliary ducts were not enlarged. There was no free air or bowel obstruction. Patient received IV saline and IV Zofran, he did not require anything for pain. As he stayed in the ER, his symptoms improved significantly. The patient states that he feels much better than when he first arrived. I discussed the case with Dr. Gama. We discussed the liver enzyme elevations. Dr. Gama suggested an MRCP. This was ordered and the result is yet pending. I talked to the patient about the need for the MRCP. He understands. He is waiting for this test to be done. At this point, the case is being assumed by Dr. Tawana Licea, she is the oncoming ER physician. Please see her notes for the final disposition and plan. Impression Primary Impression: Epigastric abdominal pain Additional Impressions: Elevated liver enzymes Hepatitis Scribe Attestation The scribe's documentation has been prepared under my direction and personally reviewed by me in its entirety. I confirm that the note above accurately reflects all work, treatment, procedures, and medical decision making performed by me. Departure Information Dispostion Still a Patient Referrals Shantel Pope C.R.N.P (PCP) Patient Instructions My [facility] Problem Qualifiers
[2016-10-13] VITALS (9 sets, daily range): BP systolic 124–138; BP diastolic 73–84; PULSE 58–74; TEMP 36.4–36.8; O2SAT 91–96; Ht 172.7 cm; Wt 83.9 kg
[2016-10-13 00:15] LABS: BASO % 0.4 %; BASO ABS # 0.04 K/uL (0-0.2); COMPLETE YES; EOS % 0.3 %; IG% 0.1 %; LYMPH % 10.6 %; LYMPH ABS # 0.96 K/uL (1.2-3.4); MONO % 5.9 %; NEUT % 82.7 %
--- NOTE | 2016-10-13 03:17 | DIAGNOSTIC IMAGING REPORT ---
ORBIT RADIOGRAPHS 3 VIEWS HISTORY: pre-MRI screening. COMPARISON: None. FINDINGS: There are no radiopaque foreign bodies identified within the orbits. IMPRESSION: No radiopaque foreign bodies identified within the orbits. Electronically signed by: Rodolfo Shea M.D. 10/13/2016 3:16 AM Dictated Date/Time: 10/13/2016 3:14 AM
[2016-10-13] MEDS ORDERED: CIPROFLOXACIN 400MG / 200ML D5W IV STA (05:50)
--- NOTE | 2016-10-13 06:02 | EMERGENCY ROOM VISIT NOTE ---
ED Visit Note First contact with patient: 03:51 This case was signed out to me at change of shift awaiting results of the MRCP 510: I spoke with the patient and his . He is anxious to leave. He is still feeling quite comfortable. He is thirsty and hungry. We are awaiting the results of the MRCP. The patient was given a small amount of water while we were waiting. 0600: The patient remains comfortable at this time. MRCP: As interpreted by stat read- Small filling defect in the distal common bile duct, question choledocholithiasis versus artifact. Common duct measures 9 mm, within normal limits for postcholecystectomy. However, correlate with labs for biliary obstruction and consider ERCP if indicated. No intrahepatic biliary dilatation. Gallbladder is surgically absent. Probable small hepatic cysts. Pancreas, spleen, adrenals and kidneys are unremarkable. I discussed the results of this with Dr. Gama. He recommended that I speak with gastroenterology with regards to ERCP. I kept the patient and his abreast of the situation. I made him nothing by mouth. I discussed the case with Dr. Gomez who recommended IV antibiotics and admission by the hospitalist. He plans to do an ERCP later today on this patient.
[2016-10-13 06:23] LABS: URINE APPEARANCE CLEAR (CLEAR); URINE BILIRUBIN NEG (NEG); URINE COLOR YELLOW; URINE NITRITE NEG (NEG); URINE SPECIFIC GRAVITY 1.035 (1.000-1.030); UROBILINOGEN NEG (NEG); ZZUR CULT IF INDIC CLEAN CATCH NO
--- NOTE | 2016-10-13 06:26 | History and Physical ---
History & Physical Date & Time of Service: Oct 13, 2016 at 06:26 Chief Complaint: Pancreatitis Primary Care Physician: Shantel Pope C.R.N.P History of Present Illness Source: patient Past Medical/Surgical History Medical Problems: (1) Hyperlipemia Status: Chronic Family History Patient reports no known family medical history. Social History Smoking Status: Former Smoker Drug Use: none Marital Status: Housing status: lives with family Occupational Status: employed Multi-Drug Resistant Organisms History of MDRO: No Allergies Coded Allergies: Latex1 -Allergic Contact Dermititis (Verified Allergy, Unknown, RASH, 10/12) NO KNOWN DRUG ALLERGIES (Verified Allergy, Unknown, ., 10/02/16) Home Medications Scheduled Amlodipine (Norvasc), 5 MG PO QAM Pantoprazole (Protonix), 40 MG PO QAM Scheduled PRN Ibuprofen (Ibuprofen), 400 MG PO Q4 PRN for Pain Physical Exam Vital Signs Date Time Temp Pulse Resp B/P Pulse Ox O2 Delivery O2 Flow Rate FiO2 10/13/16 05:13 76 18 115/70 96 10/13/16 04:35 54 18 116/69 94 Room Air 10/13/16 01:48 53 18 119/71 96 Room Air 10/12/16 23:51 65 18 129/81 98 Room Air 10/12/16 22:16 64 20 113/81 97 Room Air 10/12/16 20:18 36.4 52 20 130/72 96 Room Air Diagnostics Laboratory Results Results Past 24 Hours Test 10/12/16 21:55 10/13/16 06:16 Range/Units White Blood Count 9.04 4.8-10.8 K/uL Red Blood Count 4.61 4.7-6.1 M/uL Hemoglobin 14.0 14.0-18.0 g/dL Hematocrit 40.8 42-52 % Mean Corpuscular Volume 88.5 80-100 fL Mean Corpuscular Hemoglobin 30.4 25-34 pg Mean Corpuscular Hemoglobin Concent 34.3 32-36 g/dl Platelet Count 216 130-400 K/uL Mean Platelet Volume 8.8 7.4-10.4 fL Neutrophils (%) (Auto) 82.7 % Lymphocytes (%) (Auto) 10.6 % Monocytes (%) (Auto) 5.9 % Eosinophils (%) (Auto) 0.3 % Basophils (%) (Auto) 0.4 % Neutrophils # (Auto) 7.47 1.4-6.5 K/uL Lymphocytes # (Auto) 0.96 1.2-3.4 K/uL Monocytes # (Auto) 0.53 0.11-0.59 K/uL Eosinophils # (Auto) 0.03 0-0.5 K/uL Basophils # (Auto) 0.04 0-0.2 K/uL RDW Standard Deviation 43.0 36.4-46.3 fL RDW Coefficient of Variation 13.2 11.5-14.5 % Immature Granulocyte % (Auto) 0.1 % Immature Granulocyte # (Auto) 0.01 0.00-0.02 K/uL Sodium Level 140 136-145 mmol/L Potassium Level 3.7 3.5-5.1 mmol/L Chloride Level 104 98-107 mmol/L Carbon Dioxide Level 27 21-32 mmol/L Anion Gap 9.0 3-11 mmol/L Blood Urea Nitrogen 9 7-18 mg/dl Creatinine 1.00 0.60-1.40 mg/dl Est Creatinine Clear Calc Drug Dose 81.8 ml/min Estimated GFR () 93.7 Estimated GFR (Non- 80.9 BUN/Creatinine Ratio 9.3 10-20 Random Glucose 190 70-99 mg/dl Calcium Level 9.0 8.5-10.1 mg/dl Total Bilirubin 2.0 0.2-1 mg/dl Aspartate Amino Transf (AST/SGOT) 354 15-37 U/L Alanine Aminotransferase (ALT/SGPT) 500 12-78 U/L Alkaline Phosphatase 226 45-117 U/L Troponin I < 0.015 0-0.045 ng/ml Total Protein 7.0 6.4-8.2 gm/dl Albumin 3.7 3.4-5.0 gm/dl Globulin 3.3 2.5-4.0 gm/dl Albumin/Globulin Ratio 1.1 0.9-2 Lipase 166 73-393 U/L
[2016-10-13] MEDS ORDERED: ACETAMINOPHEN 325 MG TAB PO PRN (06:30)
[2016-10-13] MEDS ORDERED: MAGNESIUM HYDROXIDE SUSP 30 ML UDC PO PRN (06:30)
[2016-10-13] MEDS ORDERED: ALUMINUM/MAGNESIUM/SIMETH (MAALOX MAX) 30 ML UDC PO PRN (06:30)
[2016-10-13] MEDS ORDERED: POLYETHYLENE (MIRALAX) 17 GM PACK PO PRN (06:30)
[2016-10-13] MEDS ORDERED: ONDANSETRON INJ 2 MG/ML 2 ML VIAL IV PRN ×2 (06:30→11:15)
[2016-10-13 06:31] LABS: MANUAL MICROSCOPIC REQUIRED? NO; REVIEW REQ? NO
--- NOTE | 2016-10-13 06:44 | History and Physical ---
History & Physical Date & Time of Service: Oct 13, 2016 at 06:41 Chief Complaint: Pancreatitis Primary Care Physician: Shantel Pope C.R.N.P History of Present Illness Source: patient This is a 61 y/o M who is s/p lap cholecystectomy x 1 week who presented about 12 hours ago with epigastric abdominal pain that radiated to his mid back. This was accompanied by fevers/chills and nausea. He had a difficult time sitting/ standing/laying down. The pain improved somewhat while in the ED. He reports having had a similar episode about 1 week ago. He called his surgeons office, Dr. Gama, who recommended Metamucil and that seemed to take his pain away. He was evaluated in the ED and found to have elevated liver enzymes but lipase was normal. He underwent an MRCP and an ERCP was recommended. His case was discussed with Dr. Gomez who will perform the ERCP later today. He was also recently hospitalized, prior to his chilo for gallstone and resulting necrotizing pancreatitis. Past Medical/Surgical History Medical Problems: (1) Hyperlipemia Status: Chronic Family History Patient reports no known family medical history. Social History Smoking Status: Former Smoker Drug Use: none Marital Status: Housing status: lives with family Occupational Status: employed Multi-Drug Resistant Organisms History of MDRO: No Allergies Coded Allergies: Latex1 -Allergic Contact Dermititis (Verified Allergy, Unknown, RASH, 10/13) NO KNOWN DRUG ALLERGIES (Verified Allergy, Unknown, ., 10/13/16) Home Medications Scheduled Amlodipine (Norvasc), 5 MG PO QAM Pantoprazole (Protonix), 40 MG PO QAM Scheduled PRN Ibuprofen (Ibuprofen), 400 MG PO Q4 PRN for Pain Review of Systems Constitutional: + chills, + fatigue, + fever, + weakness, No weight loss Respiratory: No cough, No dyspnea at rest, No dyspnea on exertion, No shortness of breath, No sputum, No wheezing Cardiovascular: No chest pain Abdomen: + nausea, + pain, No diarrhea Musculoskeletal: No joint pain, No muscle pain Genitourinary - Male: No dysuria, No hematuria, No urinary frequency Physical Exam Vital Signs Date Time Temp Pulse Resp B/P Pulse Ox O2 Delivery O2 Flow Rate FiO2 10/13/16 05:13 76 18 115/70 96 10/13/16 04:35 54 18 116/69 94 Room Air 10/13/16 01:48 53 18 119/71 96 Room Air 10/12/16 23:51 65 18 129/81 98 Room Air 10/12/16 22:16 64 20 113/81 97 Room Air 10/12/16 20:18 36.4 52 20 130/72 96 Room Air General Appearance: no apparent distress Eyes: PERRL, EOMI ENT: hearing grossly normal, pharynx normal Neck: supple, no adenopathy Respiratory/Chest: lungs clear, normal breath sounds, no respiratory distress, no accessory muscle use Cardiovascular: regular rate, rhythm, no edema, no murmur Abdomen/GI: normal bowel sounds, soft, + tenderness (minimal epigastric), + pertinent finding (post surgical scars, clean dry and intact) Back: normal inspection, no CVA tenderness Extremities/Musculoskelatal: no calf tenderness, no pedal edema Neurologic/Psych: no motor/sensory deficits, alert, normal mood/affect, oriented x 3 Diagnostics Laboratory Results Results Past 24 Hours Test 10/12/16 21:55 10/13/16 06:16 Range/Units White Blood Count 9.04 4.8-10.8 K/uL Red Blood Count 4.61 4.7-6.1 M/uL Hemoglobin 14.0 14.0-18.0 g/dL Hematocrit 40.8 42-52 % Mean Corpuscular Volume 88.5 80-100 fL Mean Corpuscular Hemoglobin 30.4 25-34 pg Mean Corpuscular Hemoglobin Concent 34.3 32-36 g/dl Platelet Count 216 130-400 K/uL Mean Platelet Volume 8.8 7.4-10.4 fL Neutrophils (%) (Auto) 82.7 % Lymphocytes (%) (Auto) 10.6 % Monocytes (%) (Auto) 5.9 % Eosinophils (%) (Auto) 0.3 % Basophils (%) (Auto) 0.4 % Neutrophils # (Auto) 7.47 1.4-6.5 K/uL Lymphocytes # (Auto) 0.96 1.2-3.4 K/uL Monocytes # (Auto) 0.53 0.11-0.59 K/uL Eosinophils # (Auto) 0.03 0-0.5 K/uL Basophils # (Auto) 0.04 0-0.2 K/uL RDW Standard Deviation 43.0 36.4-46.3 fL RDW Coefficient of Variation 13.2 11.5-14.5 % Immature Granulocyte % (Auto) 0.1 % Immature Granulocyte # (Auto) 0.01 0.00-0.02 K/uL Sodium Level 140 136-145 mmol/L Potassium Level 3.7 3.5-5.1 mmol/L Chloride Level 104 98-107 mmol/L Carbon Dioxide Level 27 21-32 mmol/L Anion Gap 9.0 3-11 mmol/L Blood Urea Nitrogen 9 7-18 mg/dl Creatinine 1.00 0.60-1.40 mg/dl Est Creatinine Clear Calc Drug Dose 81.8 ml/min Estimated GFR () 93.7 Estimated GFR (Non- 80.9 BUN/Creatinine Ratio 9.3 10-20 Random Glucose 190 70-99 mg/dl Calcium Level 9.0 8.5-10.1 mg/dl Total Bilirubin 2.0 0.2-1 mg/dl Aspartate Amino Transf (AST/SGOT) 354 15-37 U/L Alanine Aminotransferase (ALT/SGPT) 500 12-78 U/L Alkaline Phosphatase 226 45-117 U/L Troponin I < 0.015 0-0.045 ng/ml Total Protein 7.0 6.4-8.2 gm/dl Albumin 3.7 3.4-5.0 gm/dl Globulin 3.3 2.5-4.0 gm/dl Albumin/Globulin Ratio 1.1 0.9-2 Lipase 166 73-393 U/L Urine Color YELLOW Urine Appearance CLEAR CLEAR Urine pH 8.0 4.5-7.5 Urine Specific [place] 1.035 1.000-1.030 Urine Protein NEG NEG Urine Glucose (UA) NEG NEG Urine Ketones NEG NEG Urine Occult Blood NEG NEG Urine Nitrite NEG NEG Urine Bilirubin NEG NEG Urine Urobilinogen NEG NEG Urine Leukocyte Esterase NEG NEG Impression Assessment and Plan This is a 61 y/o M who presents 10 days after lap chilo with epigastric abdominal pain and found to have elevated liver enzymes 2/2 post chilo complications of oddi dysfunction vs. retained stone in CBD etc. "MRCP- stat read Small filling defect in the distal common bile duct, question choledocholithiasis versus artifact. Common duct measures 9 mm, within normal limits for postcholecystectomy. However, correlate with labs for biliary obstruction and consider ERCP if indicated. No intrahepatic biliary dilatation. Gallbladder is surgically absent. Probable small hepatic cysts. Pancreas, spleen, adrenals and kidneys are unremarkable." Post Chilo complications: Elevated Liver enzymes Keep NPO NSS Cipro/Flagyl GI consulted and will perform ERCP later today Zofran for Nausea HTN: Continue Amlodipine Gerd: Continue Protonix DVT proph HOld for procedure SCD/Carlitos VTE Prophylaxis VTE Risk Assessment Done? Y/N: Yes Risk Level: Moderate Assessment and Plan Attending Addendum: I have physically seen and examined this patient, have directed their medical care, have supervised the medical residents activities, and agree with the H&P as noted above, with the following changes: The patient is awake, well-developed and adequately nourished, alert and oriented 3, normocephalic and atraumatic, lying in bed and in no acute distress. HEENT--PERRL, EOMI, mucous membranes and oropharynx dry. Neck--supple, no JVD or bruits, thyroid normal, trachea midline, no adenopathy. Heart--normal S1 and S2, no extra beats, no murmurs, rubs or gallops. Lungs--clear bilaterally with good air movement, no respiratory distress, no accessory muscle use. Abdomen--normal bowel sounds and soft, mild epigastric tenderness, nondistended , no hernias or masses, no organomegaly. Scars noted. Extremities--no cyanosis, clubbing or edema. There are good distal pulses b/l. Dermatologic--normal skin turgor, normal color, warm and dry, no abnormal lymph nodes, no rash. Neurologic--cranial nerves II through XII grossly intact, motor and sensory examination normal. Rheumatologic--normal range of motion, nontender, muscles and joints. Psychiatric--normal affect. Assessment and Plan: GI/MRCP with questionable filling defect indicating possible choledocholithiasis --patient will be admitted to the medical floor with nothing by mouth status. Place on IV fluids, Cipro IV and Flagyl IV. Gastroenterology Dr. Gomez will perform ERCP later today. Protonix 40 mg IV daily and Zofran 4 mg IV every 6 hours when necessary. Hypertension--continue amlodipine when taking by mouth again, in the interim would use hydralazine IV when necessary.
--- NOTE | 2016-10-13 07:52 | DIAGNOSTIC IMAGING REPORT ---
CT SCAN OF THE ABDOMEN AND PELVIS WITH IV CONTRAST CLINICAL HISTORY: Generalized abdominal pain. Recent cholecystectomy. History of necrotizing pancreatitis. COMPARISON STUDY: Abdominal CT scans dated 09/22/2016, 08/31/2016, and 08/28/2016. TECHNIQUE: Following the IV administration of 100 cc of Optiray 320, CT scan of the abdomen and pelvis is performed from the lung bases to the proximal femora. Images are reviewed in the axial, sagittal, and coronal planes. IV contrast was administered without complication. Automated dose control exposure was utilized. CT DOSE: 433.03 mGy.cm FINDINGS: Lung bases: The heart is top normal in size and there is trace pericardial fluid. Linear scarring versus atelectasis is present both lung bases. No airspace consolidation is seen typical for pneumonia and there is no pleural effusion. A small hiatal hernia is identified. Liver: The contrast-enhanced liver is enlarged, measuring 20 cm in length. The liver demonstrates diffusely diminished attenuation consistent with hepatic steatosis. An 8 mm hypodensity in the left lobe is indeterminant and unchanged. There is no intrahepatic biliary ductal dilatation. The hepatic veins and portal veins are patent. Focal fat is noted adjacent to the falciform ligament. Gallbladder: Surgically absent noting clips in the gallbladder fossa. There is mild stranding along the common bile duct. The common bile duct wall appears subtly thickened and hyperemic. This is nonspecific and may be related to recent surgery. There is no fluid/collection identified in the gallbladder fossa. Spleen: Normal in size and attenuation. Pancreas: There is mild glandular atrophy of the pancreas. There is minimal persistent peripancreatic stranding, only seen around the pancreatic neck and proximal body. This is a most completely resolved from recent prior studies. Again seen are foci of nonenhancing parenchyma within the posterior head, neck, and proximal body consistent with pancreatic necrosis. A small fluid collection in the region of the pancreatic head seen on image #152 has decreased in size from 09/22/2016, now measuring 2.2 x 1.3 cm (previously measured 2.8 x 1.8 cm). The small adjacent collection seen in the proximal pancreatic body is identified image #144 and measures 1.2 cm (previously measured 1.5 cm.) These likely represent small pseudocysts. The pancreatic duct is normal in caliber. The splenic vein is patent. Adrenal glands: Unremarkable. Kidneys: The contrast enhanced kidneys are normal in size and without hydronephrosis. The kidneys enhance symmetrically. A circumaortic left renal vein is incidentally noted. Abdominal vasculature: The abdominal aorta is normal in course and caliber. Bowel: The small bowel and colon are normal in course and caliber. There is wall thickening in the duodenum, likely related to adjacent pancreatitis. The appendix is well-visualized and normal. Peritoneum: No intraperitoneal free air or abdominal ascites is seen. There is a moderate fat-containing umbilical hernia, unchanged from prior studies. Induration around the umbilicus is likely related to laparoscopy port. Lymphadenopathy: None. Pelvic viscera: There is mild median lobe hypertrophy of the prostate gland. The bladder is normal as visualized. Skeletal structures: No lytic or blastic lesions are seen. Mild degenerative change is noted in the lumbosacral spine. IMPRESSION: 1. There are postoperative changes from interval cholecystectomy as compared to 09/22/2016. No fluid collection is identified in the gallbladder fossa. 2. Peripancreatic inflammation has almost completely resolved as compared to 09/22/2016. 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 Correlation with serum lipase levels is recommended. 3. Again seen are 2 small fluid collections identified in the regions of pancreatic necrosis. These have decreased in size from 09/22/2016 as detailed above and remain typical for small pseudocysts. 4. The splenic vein is patent. The pancreatic duct is normal in caliber. 5. There is nonspecific wall thickening and hyperemia involving the common bile duct. This is likely related to recent surgery. Clinical correlation will be required. 6. Hepatomegaly and hepatic steatosis. 7. Additional findings as detailed above. Electronically signed by: Prince Eastman M.D. 10/13/2016 7:50 AM Dictated Date/Time: 10/13/2016 7:43 AM
--- NOTE | 2016-10-13 08:16 | DIAGNOSTIC IMAGING REPORT ---
MRCP CLINICAL HISTORY: Elevated hepatic transaminases. Recent cholecystectomy. History of necrotizing pancreatitis. COMPARISON STUDY: Abdominal CT dated 10/13/2016. MRCP dated 08/26/2016. TECHNIQUE: MRCP is performed utilizing various T2-weighted sequences in the axial and coronal planes. IV contrast was not administered for this examination. 3-D reformats are created and assessed. The high-resolution coronal imaging was not performed as the patient could not tolerate the procedure. FINDINGS: The gallbladder is surgically absent. No fluid collection is seen in the gallbladder fossa. There is mild central intrahepatic biliary ductal dilatation. The common bile duct measures up to 7 mm. There is questionable intraluminal debris within the distal common bile duct above the pancreatic head seen on coronal image 12. The pancreatic duct is normal in caliber. The liver is enlarged and steatotic. A subcentimeter hepatic cyst is incidentally noted. The spleen, kidneys, and adrenal glands are grossly normal. Again seen is evidence of necrotizing pancreatitis. This is better characterized on today's CT scan. No peripancreatic fluid is identified. There is no evidence of bowel obstruction. No abdominal ascites or pleural effusion is seen. IMPRESSION: 1. Incomplete examination. The patient could not finish the study. 2. The gallbladder is surgically absent. No fluid collection is seen in the gallbladder fossa. 3. There is mild intrahepatic biliary ductal dilatation. This is nonspecific status post cholecystectomy. 4. The common bile duct measures up to 7 mm. There is questionable material within the distal common bile duct. Although this could represent artifact, choledocholithiasis is not excluded. 5. Again seen are changes from necrotizing pancreatitis. This was better characterized on today's CT scan. 6. Hepatomegaly and hepatic steatosis. Electronically signed by: Prince Eastman M.D. 10/13/2016 9:12 AM Dictated Date/Time: 10/13/2016 8:01 AM
[2016-10-13] MEDS: AMLODIPINE BESYLATE 5 MG TAB PO SCH (08:23)
[2016-10-13] MEDS: SODIUM CHLORIDE 0.9% 1000ML 1,000 ML IV SCH ×2 (08:23→16:26)
[2016-10-13] MEDS: METRONIDAZOLE / NSS 500 MG in PREMIXED NSS 100 ML IV SCH ×3 (08:23→23:51)
--- NOTE | 2016-10-13 08:44 | Family Medicine Progress Note ---
Progress Note Date of Service Oct 13, 2016. Subjective Pt evaluation today including: conversation w/ patient, physical exam, chart review, lab review Patient states that the intermittent pain is absence currently, but was severe in the past 24 hours. It was epigastric in location, but patient finds it difficult to characterize. The pain radiated straight through the abdomen into the back. He feels it was triggered by large quantities of food, not all foods. It has been intermittently present since his surgery, but yesterday it became so unbearable, that he was unable to sit/stand/lie/ambulate. He was also feeling nauseous. 2 ibuprofen did nothing for the pain. Overnight, the pain has been fluctuating. He has not noticed any changes in stool or urine, and denies skin colour changes. He denies recent alcohol consumption and has not smoked a cigar recently either. Constitutional: + chills, + fever, No fatigue, No sweats, No weakness Respiratory: + shortness of breath, No cough, No hemoptysis, No wheezing Cardiovascular: No PND, No chest pain, No edema, No palpitations Abdomen: + nausea, + pain, No GI bleeding, No constipation, No diarrhea, No vomiting Male : No dysuria Skin: No itch, No rash Objective Vital Signs Date Time Temp Pulse Resp B/P Pulse Ox O2 Delivery O2 Flow Rate FiO2 10/13/16 07:22 61 20 123/75 95 10/13/16 05:13 76 18 115/70 96 10/13/16 04:35 54 18 116/69 94 Room Air 10/13/16 01:48 53 18 119/71 96 Room Air 10/12/16 23:51 65 18 129/81 98 Room Air 10/12/16 22:16 64 20 113/81 97 Room Air 10/12/16 20:18 36.4 52 20 130/72 96 Room Air Physical Exam General Appearance: WD/WN, no apparent distress ENT: hearing grossly normal Neck: supple, no adenopathy Respiratory/Chest: lungs clear, normal breath sounds, no respiratory distress, no accessory muscle use, + pertinent finding (Painful to take deep breath/fully expand lungs) Cardiovascular: regular rate, rhythm, no murmur Abdomen: normal bowel sounds, soft, + tenderness (epigastric) Extremities: no pedal edema, no calf tenderness 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: alert, normal mood/affect, oriented x 3 Skin: normal color, warm/dry, no rash Laboratory Results Results Past 24 Hours Test 10/13/16 06:16 Range/Units Urine Color YELLOW Urine Appearance CLEAR CLEAR Urine pH 8.0 4.5-7.5 Urine Specific [place] 1.035 1.000-1.030 Urine Protein NEG NEG Urine Glucose (UA) NEG NEG Urine Ketones NEG NEG Urine Occult Blood NEG NEG Urine Nitrite NEG NEG Urine Bilirubin NEG NEG Urine Urobilinogen NEG NEG Urine Leukocyte Esterase NEG NEG Assessment and Plan 61 year old male with history of necrotizing pancreatitis presented with epigastric abdominal pain with elevated liver enzymes 10 days post cholecystectomy. MRCP found small filling defect in the distal CBD. ERCP retracted retained stone in CBD. Post Cori complications - GI consulted, recs appreciated - Continue Cipro/Flagyl - Zofran PRN nausea - Trend LFTs for improvement HTN: - Amlodipine Gerd: - Protonix DVT proph - SCD/Carlitos/ambulation Continued [facility] stay due to: other Discharge planning: home Resident Tracking Resident Involvement: Resident Care Provided Care Provided: Adult Hospital Medicine History Resident Physician Supervision Note: I was present with Dr. Linares during the history and exam. I discussed the case with the resident and agree with the findings and plan as documented in the note. Any exceptions or clarifications are listed here. Pt seen and examined at bedside. ERCP completed prior to patient evaluation. Following procedure, pt reports already improving cramping/aching epigastric pain which no longer radiates to the back. He reports tolerating ice cream x 2 well immediately following ERCP. General Appearance: WD/WN, no apparent distress Respiratory: chest non-tender, lungs clear, normal breath sounds, no respiratory distress Cardiovascular: normal peripheral pulses, regular rate, rhythm, no edema, no murmur Gastrointestinal: normal bowel sounds, soft, no organomegaly, tenderness ( minimal epigastric/RUQ) Assessment/Plan 61 y/o male 10 days s/p cholecystectomy with necrotizing pancreatitis w/ progressively worsening pain and nausea Choledocholithiasis - s/p ERCP with resolution of symptoms - trend LFTs in AM - advance diet as tolerated - continue ciprofloxacin/metronidazole HTN - continue amlodipine GERD - continue protonix HLD - obtain record re: previous medication and dosing for mgmt DVT PPX - pt refusing TEDs/SCDs - ambulating
--- NOTE | 2016-10-13 09:45 | Surgery Consultation ---
Consultation Date of Consultation: Oct 13, 2016. Attending Physician: Jim Gipson MD History of Present Illness Juno is a pleasant 61 year-old male who presented to emergency department last evening with complaint of epigastric abdominal pain with radiation to his back and associated nausea, fever, and chills. Juno underwent laparoscopic cholecystectomy with intraoperative cholangiogram by Dr. Gama 10 days ago. He did have another episode of abdominal pain post surgery however it resolved. 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 Evaluation in the emergency department showed elevated LFTS and total bilirubin of 2.0. No leukocytosis and lipase within normal limits. CT can of abdomen and pelvis showed post surgical changes in the gallbladder fossa, interval almost complete resolution of peripancreatic inflammation compared to CT scan at last admission. There are two small fluid collections at location of pancreatic necrosis however decreased in size. An MRCP showed "The common bile duct measures up to 7 mm. There is questionable material within the distal common bile duct. Although this could represent artifact, choledocholithiasis is not excluded." Juno states his abdominal pain is resolved. Feeling fine as of now. No nausea or vomiting. Past Medical/Surgical History Medical Problems: (1) Biliary colic Status: Acute (2) Pancreatitis Status: Acute (3) Vomiting Status: Acute Family History Patient reports no known family medical history. Social History Smoking Status: Light Tobacco Smoker Drug Use: none Marital Status: Occupation Status: employed Allergies Coded Allergies: Latex1 -Allergic Contact Dermititis (Verified Allergy, Unknown, RASH, 10/12) NO KNOWN DRUG ALLERGIES (Verified Allergy, Unknown, ., 10/02/16) Home Medications Scheduled Amlodipine (Norvasc), 5 MG PO QAM Pantoprazole (Protonix), 40 MG PO QAM Scheduled PRN Ibuprofen (Ibuprofen), 400 MG PO Q4 PRN for Pain Current Inpatient Medications Current Inpatient Medications Medications (Trade) Dose Ordered Sig/Nabila Route Start Time Stop Time Status Last Admin Dose Admin Ioversol (Optiray 320) 100 ml UD PRN IV 10/12/16 23:30 10/16/16 23:29 Acetaminophen (Tylenol Tab) 650 mg Q4H PRN PO 10/13/16 06:30 11/12/16 06:29 Al Hydrox/Mg Hydrox/Simethicone (Maalox Max Susp) 15 ml Q4H PRN PO 10/13/16 06:30 11/12/16 06:29 Magnesium Hydroxide (Milk Of Magnesia Susp) 30 ml Q6H PRN PO 10/13/16 06:30 11/12/16 06:29 Polyethylene (Miralax Powder Packet) 17 gm DAILY PRN PO 10/13/16 06:30 11/12/16 06:29 Ondansetron HCl (Zofran Inj) 4 mg Q6H PRN IV 10/13/16 06:30 11/12/16 06:29 Amlodipine Besylate 5 mg 5 mg QAM PO 10/13/16 08:00 11/12/16 08:59 10/13/16 08:23 5 MG Pantoprazole Sodium 40 mg/ Syringe 10 ml @ 5 mls/min DAILY@11 IV 10/13/16 11:00 11/12/16 10:59 Ciprofloxacin/ Dextrose 400 mg/ Prmx 200 ml @ 100 mls/hr Q12H IV 10/13/16 18:00 10/23/16 05:59 Metronidazole 500 mg/Prmx 100 ml @ 100 mls/hr Q8H IV 10/13/16 08:00 10/23/16 07:59 10/13/16 08:23 100 MLS/HR Sodium Chloride (Nss 1000ml) 1,000 ml @ 100 mls/hr Q10H IV 10/13/16 06:45 11/12/16 06:44 10/13/16 08:23 100 MLS/HR Review of Systems Constitutional: + chills, + fever, No sweats Abdomen: + nausea, + pain, No constipation, No diarrhea, No vomiting Endocrine: No fatigue Integumentary: No rash Physical Exam Date Time Temp Pulse Resp B/P Pulse Ox O2 Delivery O2 Flow Rate FiO2 10/13/16 09:20 36.4 58 18 138/82 95 Room Air 10/13/16 09:19 36.4 58 18 138/82 95 Room Air 10/13/16 07:22 61 20 123/75 95 10/13/16 05:13 76 18 115/70 96 10/13/16 04:35 54 18 116/69 94 Room Air 10/13/16 01:48 53 18 119/71 96 Room Air 10/12/16 23:51 65 18 129/81 98 Room Air 10/12/16 22:16 64 20 113/81 97 Room Air 10/12/16 20:18 36.4 52 20 130/72 96 Room Air General Appearance: WD/WN, no apparent distress Head: normocephalic, atraumatic Eyes: sclerae normal ENT: hearing grossly normal Respiratory/Chest: lungs clear, no respiratory distress, no accessory muscle use Cardiovascular: regular rate, rhythm Abdomen/GI: non tender, soft, no organomegaly, no pulsatile mass Neurologic/Psych: alert, normal mood/affect, oriented x 3 Skin: normal color, warm/dry, no rash Laboratory Results Last 24 Hours Test 10/12/16 21:55 10/13/16 06:16 White Blood Count 9.04 K/uL Red Blood Count 4.61 M/uL Hemoglobin 14.0 g/dL Hematocrit 40.8 % Mean Corpuscular Volume 88.5 fL Mean Corpuscular Hemoglobin 30.4 pg Mean Corpuscular Hemoglobin Concent 34.3 g/dl Platelet Count 216 K/uL Mean Platelet Volume 8.8 fL Neutrophils (%) (Auto) 82.7 % Lymphocytes (%) (Auto) 10.6 % Monocytes (%) (Auto) 5.9 % Eosinophils (%) (Auto) 0.3 % Basophils (%) (Auto) 0.4 % Neutrophils # (Auto) 7.47 K/uL Lymphocytes # (Auto) 0.96 K/uL Monocytes # (Auto) 0.53 K/uL Eosinophils # (Auto) 0.03 K/uL Basophils # (Auto) 0.04 K/uL RDW Standard Deviation 43.0 fL RDW Coefficient of Variation 13.2 % Immature Granulocyte % (Auto) 0.1 % Immature Granulocyte # (Auto) 0.01 K/uL Sodium Level 140 mmol/L Potassium Level 3.7 mmol/L Chloride Level 104 mmol/L Carbon Dioxide Level 27 mmol/L Anion Gap 9.0 mmol/L Blood Urea Nitrogen 9 mg/dl Creatinine 1.00 mg/dl Est Creatinine Clear Calc Drug Dose 81.8 ml/min Estimated GFR () 93.7 Estimated GFR (Non- 80.9 BUN/Creatinine Ratio 9.3 Random Glucose 190 mg/dl Calcium Level 9.0 mg/dl Total Bilirubin 2.0 mg/dl Aspartate Amino Transf (AST/SGOT) 354 U/L Alanine Aminotransferase (ALT/SGPT) 500 U/L Alkaline Phosphatase 226 U/L Troponin I < 0.015 ng/ml Total Protein 7.0 gm/dl Albumin 3.7 gm/dl Globulin 3.3 gm/dl Albumin/Globulin Ratio 1.1 Lipase 166 U/L Urine Color YELLOW Urine Appearance CLEAR Urine pH 8.0 Urine Specific [place] 1.035 Urine Protein NEG Urine Glucose (UA) NEG Urine Ketones NEG Urine Occult Blood NEG Urine Nitrite NEG Urine Bilirubin NEG Urine Urobilinogen NEG Urine Leukocyte Esterase NEG CT SCAN OF THE ABDOMEN AND PELVIS WITH IV CONTRAST CLINICAL HISTORY: Generalized abdominal pain. Recent cholecystectomy. History of necrotizing pancreatitis. COMPARISON STUDY: Abdominal CT scans dated 09/22/2016, 08/31/2016, and 08/28/2016. TECHNIQUE: Following the IV administration of 100 cc of Optiray 320, CT scan of the abdomen and pelvis is performed from the lung bases to the proximal femora. Images are reviewed in the axial, sagittal, and coronal planes. IV contrast was administered without complication. Automated dose control exposure was utilized. CT DOSE: 433.03 mGy.cm FINDINGS: Lung bases: The heart is top normal in size and there is trace pericardial fluid. Linear scarring versus atelectasis is present both lung bases. No airspace consolidation is seen typical for pneumonia and there is no pleural effusion. A small hiatal hernia is identified. Liver: The contrast-enhanced liver is enlarged, measuring 20 cm in length. The liver demonstrates diffusely diminished attenuation consistent with hepatic steatosis. An 8 mm hypodensity in the left lobe is indeterminant and unchanged. There is no intrahepatic biliary ductal dilatation. The hepatic veins and portal veins are patent. Focal fat is noted adjacent to the falciform ligament. Gallbladder: Surgically absent noting clips in the gallbladder fossa. There is mild stranding along the common bile duct. The common bile duct wall appears subtly thickened and hyperemic. This is nonspecific and may be related to recent surgery. There is no fluid/collection identified in the gallbladder fossa. Spleen: Normal in size and attenuation. Pancreas: There is mild glandular atrophy of the pancreas. There is minimal persistent peripancreatic stranding, only seen around the pancreatic neck and proximal body. This is a most completely resolved from recent prior studies. Again seen are foci of nonenhancing parenchyma within the posterior head, neck, and proximal body consistent with pancreatic necrosis. A small fluid collection in the region of the pancreatic head seen on image #152 has decreased in size from 09/22/2016, now measuring 2.2 x 1.3 cm (previously measured 2.8 x 1.8 cm). The small adjacent collection seen in the proximal pancreatic body is identified image #144 and measures 1.2 cm (previously measured 1.5 cm.) These likely represent small pseudocysts. The pancreatic duct is normal in caliber. The splenic vein is patent. Adrenal glands: Unremarkable. Kidneys: The contrast enhanced kidneys are normal in size and without hydronephrosis. The kidneys enhance symmetrically. A circumaortic left renal vein is incidentally noted. Abdominal vasculature: The abdominal aorta is normal in course and caliber. Bowel: The small bowel and colon are normal in course and caliber. There is wall thickening in the duodenum, likely related to adjacent pancreatitis. The appendix is well-visualized and normal. Peritoneum: No intraperitoneal free air or abdominal ascites is seen. There is a moderate fat-containing umbilical hernia, unchanged from prior studies. Induration around the umbilicus is likely related to laparoscopy port. Lymphadenopathy: None. Pelvic viscera: There is mild median lobe hypertrophy of the prostate gland. The bladder is normal as visualized. Skeletal structures: No lytic or blastic lesions are seen. Mild degenerative change is noted in the lumbosacral spine. IMPRESSION: 1. There are postoperative changes from interval cholecystectomy as compared to 09/22/2016. No fluid collection is identified in the gallbladder fossa. 2. Peripancreatic inflammation has almost completely resolved as compared to 09/22/2016. 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 Correlation with serum lipase levels is recommended. 3. Again seen are 2 small fluid collections identified in the regions of pancreatic necrosis. These have decreased in size from 09/22/2016 as detailed above and remain typical for small pseudocysts. 4. The splenic vein is patent. The pancreatic duct is normal in caliber. 5. There is nonspecific wall thickening and hyperemia involving the common bile duct. This is likely related to recent surgery. Clinical correlation will be required. 6. Hepatomegaly and hepatic steatosis. 7. Additional findings as detailed above. MRCP CLINICAL HISTORY: Elevated hepatic transaminases. Recent cholecystectomy. History of necrotizing pancreatitis. COMPARISON STUDY: Abdominal CT dated 10/13/2016. MRCP dated 08/26/2016. TECHNIQUE: MRCP is performed utilizing various T2-weighted sequences in the axial and coronal planes. IV contrast was not administered for this examination. 3-D reformats are created and assessed. The high-resolution coronal imaging was not performed as the patient could not tolerate the procedure. FINDINGS: The gallbladder is surgically absent. No fluid collection is seen in the gallbladder fossa. There is mild central intrahepatic biliary ductal dilatation. The common bile duct measures up to 7 mm. There is questionable intraluminal debris within the distal common bile duct above the pancreatic head seen on coronal image 12. The pancreatic duct is normal in caliber. The liver is enlarged and steatotic. A subcentimeter hepatic cyst is incidentally noted. The spleen, kidneys, and adrenal glands are grossly normal. Again seen is evidence of necrotizing pancreatitis. This is better characterized on today's CT scan. No peripancreatic fluid is identified. There is no evidence of bowel obstruction. No abdominal ascites or pleural effusion is seen. IMPRESSION: 1. Incomplete examination. The patient could not finish the study. 2. The gallbladder is surgically absent. No fluid collection is seen in the gallbladder fossa. 3. There is mild intrahepatic biliary ductal dilatation. This is nonspecific status post cholecystectomy. 4. The common bile duct measures up to 7 mm. There is questionable material within the distal common bile duct. Although this could represent artifact, choledocholithiasis is not excluded. 5. Again seen are changes from necrotizing pancreatitis. This was better characterized on today's CT scan. 6. Hepatomegaly and hepatic steatosis. Assessment & Plan 10 days s/p laparoscopic cholecystectomy with elevated LFTS and total Bilirubin of 2.0 Possible Choledocholithiasis -afebrile - no leukocytosis - no jaundice - abdominal pain resolved - abdominal examination benign Plan: Dr. Gomez from GI planning on ERCP later today Continue IV fluids, IV antibiotics, and NPO for procedure today No surgical indication required at this time Will continue to follow Dr. Gama has seen and examined patient, agrees with assessment and plan.
--- NOTE | 2016-10-13 10:02 | History & Physical Bridge Note ---
H&P Re-Evaluation Bridge Note: I have examined the patient, reviewed the History & Physical and in the interval since the performance of the History & Physical I have noted the following changes of clinical significance: Pt AAO x3; anicteric; afebrile currently Nl s1s2 Lungs CTA Abd soft NT/ND + BS - CCE For ERCP now On Cipro/Flagyl IV currently
[2016-10-13] MEDS ORDERED: PANTOprazole INJ 40 MG in SYRINGE 0 ML IV SCH (11:00)
[2016-10-13] MEDS ORDERED: FENTANYL CITRATE INJ 50 MCG/1 ML 2 ML VIAL ONE (11:04)
[2016-10-13] MEDS ORDERED: PROMETHAZINE HCL INJ 6.25 MG in SODIUM CHLORIDE 0.9% 50ML 50 ML IV PRN (11:15)
[2016-10-13] MEDS ORDERED: EpHEDrine SULFATE INJ 50 MG/ML AMP IV PRN (11:15)
[2016-10-13] MEDS ORDERED: FENTANYL CITRATE INJ 50 MCG/1 ML 2 ML VIAL IV PRN (11:15)
[2016-10-13] MEDS ORDERED: ATROPINE SULFATE 0.1 MG/ML 5ML SYR IV PRN (11:15)
[2016-10-13] MEDS ORDERED: HYDROmorphone INJ 1 MG/ML SYR IV PRN (11:15)
--- NOTE | 2016-10-13 11:27 | GASTROINTESTINAL CONSULTATION ---
DATE OF CONSULTATION: 10/13/2016 DATE OF CONSULTATION: 10/13/2016. CHIEF COMPLAINT: Abnormal liver tests, abnormal MRCP, suspected choledocholithiasis, recent laparoscopic cholecystectomy 10/02/2016, August 2016 with necrotizing pancreatitis due to gallstone pancreatitis. HISTORY OF PRESENT ILLNESS: Mr. Bragg is a 61-year-old male whose background history is of borderline hypertension and hypercholesterolemia. He was on medications for this, but stopped because of muscle aches. The patient experienced an attack of gallstone pancreatitis with necrotizing changes in August 2016, was hospitalized for approximately 1 week. Following this, it was determined that his gallbladder had evidence of cholelithiasis and biliary sludge without evidence of acute cholecystitis. There was also hepatomegaly and hepatic steatosis. During that hospitalization the patient also had abnormal liver tests and evidence of hypercholesterolemia has been noted in the past. The patient underwent laparoscopic cholecystectomy on 10/02/2016 at which time an IOC failed to demonstrate any filling defects, although the bile duct was perhaps slightly prominent. The patient was doing overall well, although since the time of his pancreatitis he has had diminished and apprehension about eating and perhaps a sense of fullness. He also had a periumbilical hernia repair which he reports is still slightly tender. Over the last day, the patient had increasing abdominal discomfort with epigastric pain that radiated to his mid back. There was also a sense of sweats and chills, although he had not taken his temperature. The patient presented to the Emergency Room and the symptoms slowly subsided. The decision for admission was made partly because of elevated liver enzymes and the MRCP described above. The patient's lipase however is normal. PAST MEDICAL HISTORY: Includes hyperlipidemia. FAMILY HISTORY: Noncontributory except for father in his 80s who underwent a cholecystectomy and for lipid problems in the family. ALLERGIES: THE PATIENT IS ALLERGIC TO LATEX. HOME MEDICATIONS: Include pantoprazole 40 mg daily and amlodipine 5 mg daily. He was on a cholesterol agent, but stopped on his own. He uses p.r.n. ibuprofen. SOCIAL HISTORY: The patient smokes a cigar perhaps once every 6 weeks and has perhaps a beer with pizza once a week or even less. He has never been a frequent or steady drinker of alcoholic beverages. REVIEW OF SYSTEMS: Otherwise noncontributory based on 14-point exam. The patient denies odynophagia, dysphagia, hematemesis, coffee-ground emesis, nausea, vomiting, melena, bright red blood per rectum, diarrhea or constipation. There is no dysuria or hematuria. PHYSICAL EXAMINATION: VITAL SIGNS: On admission today temperature 36.4 last evening, pulse 52, respirations 20, blood pressure 130/72. GENERAL: The patient is awake, alert and oriented x3. He is being seen in the [facility] in preparation of the ERCP in a short time. The patient has tattoos. The patient is awake, alert and oriented x3. HEAD, EYES, EARS, NOSE, AND THROAT: Sclerae are anicteric. Oral mucosa moist. Conjunctiva moist. No neurologic focal defects. NECK: There is no cervical or supraclavicular adenopathy. I do not appreciate thyromegaly. HEART: Normal S1, S2. LUNGS: Clear to auscultation without rales, rhonchi or wheezes. ABDOMEN: Abdomen soft, mildly tender in the epigastrium and around the umbilical region. There is no rebound or guarding. I do not appreciate hepatosplenomegaly. EXTREMITIES: Without clubbing, cyanosis or edema. RECTAL EXAMINATION: Deferred at this time. LABORATORY STUDIES: On admission, white count 9.0, hemoglobin 14, MCV 88, platelets 216,000. BUN and creatinine 9 and 1.0. Potassium normal at 3.7. Liver tests show alkaline phosphatase 226, ALT 500, AST 354, total bilirubin 2.0, calcium is normal at 9. Blood sugar is random 190. UA is unremarkable for UTI. MRCP shows an incomplete exam; however, the gallbladder is absent. There is no fluid in the fossa. There is mild intrahepatic biliary ductal dilatation with status post cholecystectomy. Common bile duct approximately 7 mm with questionable filling defect material in the distal common bile duct. There is also evidence of necrotizing pancreatitis. In addition, hepatomegaly and hepatic steatosis is noted. CT scan performed revealed the same postoperative changes, peripancreatic inflammation has nearly completely resolved compared to 09/22/2016. There is evidence of pancreatic necrosis in the posterior head, neck and proximal pancreatic body. The pancreatic fluid collections have decreased in size from the 09/22/2016 CT and likely reflects small pseudocyst, splenic vein is patent. There is nonspecific wall thickening and hyperemia involving the common bile duct, hepatomegaly. The patient with recent history of gallstone pancreatitis with a component of necrotizing pancreatitis with acute onset of abdominal pain 10 days following laparoscopic cholecystectomy. The MRCP last evening suggests perhaps filling debris in the bile duct and CT suggests perhaps some thickening of the wall of the bile duct. There is also a suggestion of intrahepatic ductal dilation. Will plan for ERCP at this time. Depending on its results would continue to follow LFTs. The patient once able to resume oral intake should be on low fat diet. In addition, eventual resumption of cholesterol agents would be beneficial. There is a component of steatosis and it is unclear if there is a background chronic liver process, although his platelet count INR on the August admission was 1.1, and albumin is normal at 3.7. The risks, benefits, and alternatives to ERCP were discussed with the patient including bleeding, infection, perforation (less than 1:1,000) and risk of pancreatitis (approximately 5%). The patient understands and agrees to proceed. Further recommendations to follow. Thank you for allowing us to participate in this patient's care. AARON
--- NOTE | 2016-10-13 11:45 | GI REPORT ---
Procedure Date: 10/13/2016 10:28 AM THIS REPORT HAS BEEN AMENDED Addendum Number: 1 Addendum Date: 10/13/2016 12:06:51 PM Procedure time: Scope in at 10:55 am and withdrawn at 11:14 am. Procedure: ERCP Indications: Abdominal pain of suspected biliary origin, Biliary dilation on magnetic resonance cholangiopancreatography, Biliary sludge on magnetic resonance cholangiopancreatography, Elevated aspartate transaminase (AST), Elevated alanine transaminase (ALT), Elevated bilirubin, Elevated alkaline phosphatase Medicines: General Anesthesia Complications: No immediate complications. Estimated blood loss: None Estimated Blood Loss: Estimated blood loss: none. Procedure: Pre-Anesthesia Assessment: - Prior to the procedure, a History and Physical was performed, and patient medications and allergies were reviewed. The patient's tolerance of previous anesthesia was also reviewed. The risks and benefits of the procedure and the sedation options and risks were discussed with the patient. All questions were answered, and informed consent was obtained. Prior Anticoagulants: The patient has taken no previous anticoagulant or antiplatelet agents. ASA Grade Assessment: II - A patient with mild systemic disease. After reviewing the risks and benefits, the patient was deemed in satisfactory condition to undergo the procedure. After obtaining informed consent, the scope was passed under direct vision. Throughout the procedure, the patient's blood pressure, pulse, and oxygen saturations were monitored continuously. The Scope was introduced through the mouth, and advanced to the duodenum and used to inject contrast into the dorsal pancreatic duct. The ERCP was accomplished without difficulty. The patient tolerated the procedure well. Findings: A magnetic resonance imaging director film of the abdomen was obtained. Surgical clips were seen in the area of the right upper quadrant of the abdomen. The esophagus was successfully intubated under direct vision. The scope was advanced to a normal major papilla in the descending duodenum without detailed examination of the pharynx, larynx and associated structures, and upper GI tract. The upper GI tract was grossly normal. A straight 0.035 inch [employer] Direct wire was passed into the biliary tree and entered the bile duct on the first attempt. The short-nosed traction sphincterotome was passed over the guidewire and the bile duct was then cannulated. Contrast was injected. I personally interpreted the bile duct images. Ductal flow of contrast was adequate. Image quality was adequate. Contrast extended to the entire biliary tree. Opacification of the upper third of the main bile duct was successful. The maximum diameter of the ducts was 8 mm. The lower third of the main bile duct contained filling defect(s) thought to be a stone. There was no extravasation of contrast. A 4 mm biliary sphincterotomy was made with a short-tip traction sphincterotome using ERBE electrocautery. There was no post-sphincterotomy bleeding. The biliary tree was swept with an 8.5 mm balloon, 10 mm balloon and 12 mm balloon starting at the bifurcation. One stone was removed. No stones remained. -The PD was neither instrumented nor opacified. No samples taken. The final occlusion cholangiogram demonstrated no fixed or mobile persistent filling defects. No stents placed. Impression: - A filling defect consistent with a stone was seen on the cholangiogram. - A sphincterotomy was performed. - The biliary tree was swept. - Choledocholithiasis was found. Complete removal was accomplished by biliary sphincterotomy and balloon extraction. Recommendation: - The patient should not require a repeat ERCP. - Follow LFTs until normalization. MD Kade Meehan MD 10/13/2016 11:45:45 AM This report has been signed electronically. Note Initiated On: 10/13/2016 10:28 AM I attest to the content of the Intraoperative Record and orders documented therein, exceptions below MD Kade Meehan MD 10/13/2016 12:07:59 PM This report has been signed electronically.
--- NOTE | 2016-10-13 11:57 | DIAGNOSTIC IMAGING REPORT ---
INTRAOPERATIVE RADIOGRAPHS CLINICAL HISTORY: ERCP. History of necrotizing pancreatitis and recent cholecystectomy. Fluoroscopy time: 145 seconds. FINDINGS: 14 spot fluoroscopic images of the right upper quadrant from an ERCP procedure are presented. Correlation is made with MRCP dated 10/13/2016. The endoscopic projects over the stomach. Cholecystectomy clips are noted. There is cannulation of the common bile duct which appears mildly dilated. There is also mild dilatation of the central intrahepatic ducts. A balloon sweep of the common bile duct is performed. No definite filling defects are seen in the common bile duct on the final image. IMPRESSION: Intraoperative images from ERCP and common bile duct expiration. See operative report for detailed findings. Electronically signed by: Prince Eastman M.D. 10/13/2016 11:56 AM Dictated Date/Time: 10/13/2016 11:54 AM
--- NOTE | 2016-10-13 12:30 | Anesthesiology Progress Note ---
Anesthesia Post Op Note Date & Time Oct 13, 2016 at 12:30 Vital Signs Pain Intensity: 0 Vital Signs Past 12 Hours Date Time Temp Pulse Resp B/P Pulse Ox O2 Delivery O2 Flow Rate FiO2 10/13/16 12:15 36.3 80 16 125/79 93 Room Air 10/13/16 12:10 83 17 118/84 95 Room Air 10/13/16 12:00 85 13 133/84 100 Mask 10 10/13/16 11:50 85 17 128/82 100 Mask 10 10/13/16 11:41 36.2 101 17 129/84 97 Mask 10 10/13/16 09:34 36.4 58 18 138/82 Room Air 10/13/16 09:20 36.4 58 18 138/82 95 Room Air 10/13/16 09:19 36.4 58 18 138/82 95 Room Air 10/13/16 07:22 61 20 123/75 95 10/13/16 05:13 76 18 115/70 96 10/13/16 04:35 54 18 116/69 94 Room Air 10/13/16 01:48 53 18 119/71 96 Room Air Notes Mental Status: alert / awake / arousable, participated in evaluation Pt Amnestic to Procedure: Yes Nausea / Vomiting: adequately controlled Pain: adequately controlled Airway Patency, RR, SpO2: stable & adequate BP & HR: stable & adequate Hydration State: stable & adequate Anesthetic Complications: no major complications apparent
[2016-10-13] MEDS: CIPROFLOXACIN / D5W 400 MG in PREMIXED IN D5W 200 ML IV SCH (18:10)
[2016-10-14] VITALS: O2SAT 96
[2016-10-14] MEDS: CIPROFLOXACIN / D5W 400 MG in PREMIXED IN D5W 200 ML IV SCH (05:59)
[2016-10-14] MEDS: METRONIDAZOLE / NSS 500 MG in PREMIXED NSS 100 ML IV SCH (08:02)
[2016-10-14] MEDS: AMLODIPINE BESYLATE 5 MG TAB PO SCH (08:03)
[2016-10-14 08:15] LABS: BUN/CREATININE RATIO 6.3 (10-20); CALCIUM 9.1 mg/dl (8.5-10.1); CREATININE 0.89 mg/dl (0.60-1.40); POTASSIUM 3.6 mmol/L (3.5-5.1)
[2016-10-14 08:20] VITALS: BP 118/72; PULSE 62; TEMP 36.7; O2SAT 95
--- NOTE | 2016-10-14 09:58 | SURGERY PROGRESS NOTE ---
DATE: 10/14/[address] Gama. SUBJECTIVE: uJno had an ERCP yesterday and then cleared his common bile duct debris. This morning, he feels fine. He says the best he has felt in quite some time. His last vitals showed a temperature of 36.5, pulse 62, respirations 16, blood pressure 133/84, O2 sats 96 on room air. I and O noted. Laboratory mary this morning, the chemistries in logical profile is pending. His abdomen is completely benign. The trocar sites have healed well. From my point of view, the patient could be discharged at discretion of the primary service and follow up with Dr. Gama in approximately a week or so. There is no restriction on his activity. [facility]
[2016-10-14] MEDS ORDERED: PANTOprazole SOD 40 MG TAB PO ONE (10:00)
--- NOTE | 2016-10-14 11:05 | PROGRESS NOTE ---
DATE: 10/14/2016 SUBJECTIVE: The patient states he has no abdominal pain today and as has felt better than he has felt since he had his gallbladder out about 12 days ago. OBJECTIVE: His vital signs are normal. He is afebrile. His bilirubin has gone from 2 down to 0.6. AST, ALT and alkaline phosphatase are all improving. His abdomen is soft and nontender. He does have some healing laparoscopic incisions. IMPRESSION: The patient had a common bile duct stone that was removed yesterday endoscopically by Dr. Hernandez, the patient is feeling very well today. At this point, I think he is able to be discharged home.
--- NOTE | 2016-10-14 11:16 | Discharge Instructions ---
Discharge Instructions Date of Service Oct 14, 2016. Admission Reason for Admission: Elevated Lfts Discharge Discharge Diagnosis / Problem: Choledocholithiasis Discharge Goals Goal(s): Decrease discomfort, Diagnostic testing, Therapeutic intervention Activity Recommendations Activity Limitations: resume your previous activity Instructions / Follow-Up Instructions / Follow-Up You were admitted to hospital with severe abdominal pain 10 days after your cholecystectomy surgery. Because you were having fevers and there was a risk of infection, you were started on broad antibiotics to cover several different bugs. Initial lab investigations showed increased bilirubin levels and other deranged liver enzyme levels. Imaging done (reported below) revealed changes consistent with recent surgery and previous pancreatitis. Additionally a filling defect was found on the images. As such ERCP procedure was performed to further investigate whether this was a normal finding from your previous surgery or if there was a stone present. During the ERCP, a filling defect consistent with a stone was seen on the cholangiogram test, and so the sphincter was cut and duct was swept. A single stone was found and removed. Post-procedure, there was rapid improvement in symptoms. Recheck of labs showed that the liver functioning was improving. On discharge, the antibiotics were discontinued and you may continue your home medications. For any ongoing pain, you may take Tylenol or Ibuprofen. Please do not exceed the limit indicated on the packaging. It is recommended you eat a low fat diet via small frequent meals, at least initially. Follow up with Dr. Gama in one week with repeat liver function tests to ensure that they have normalized. If you develop a recurrence of the pain symptoms, fever, vomiting, changes in skin/urine/stool color, or if there are any new concerns, please seek medical care sooner. Thank you for allowing us to participate in your care. Current Hospital Diet Patient's current hospital diet: Low Fat Diet Discharge Diet Recommended Diet: Low Fat Diet Procedures Procedures Performed: Endoscopic Retrograde Cholangiopancreatography, sphincterotomy, balloon sweep of common bile duct with stone extraction Pending Studies Studies pending at discharge: no Laboratory Results Results Past 24 Hours Test 10/14/16 07:25 Range/Units Sodium Level 143 136-145 mmol/L Potassium Level 3.6 3.5-5.1 mmol/L Chloride Level 108 98-107 mmol/L Carbon Dioxide Level 27 21-32 mmol/L Anion Gap 8.0 3-11 mmol/L Blood Urea Nitrogen 6 7-18 mg/dl Creatinine 0.89 0.60-1.40 mg/dl Est Creatinine Clear Calc Drug Dose 92.0 ml/min Estimated GFR () 107.0 Estimated GFR (Non- 92.3 BUN/Creatinine Ratio 6.3 10-20 Random Glucose 112 70-99 mg/dl Calcium Level 9.1 8.5-10.1 mg/dl Total Bilirubin 0.6 0.2-1 mg/dl Direct Bilirubin 0.2 0-0.2 mg/dl Aspartate Amino Transf (AST/SGOT) 78 15-37 U/L Alanine Aminotransferase (ALT/SGPT) 378 12-78 U/L Alkaline Phosphatase 201 45-117 U/L Total Protein 6.7 6.4-8.2 gm/dl Albumin 3.4 3.4-5.0 gm/dl Globulin 3.3 2.5-4.0 gm/dl Albumin/Globulin Ratio 1.0 0.9-2 Lipase 135 73-393 U/L Diagnostic Imaging: CXR: No acute cardiopulmonary findings. CT AP: 1. Postoperative changes from interval cholecystectomy as compared to 2016. No fluid collection is identified in the gallbladder fossa. 2. Peripancreatic inflammation has almost completely resolved as compared to 04/2017. 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 Correlation with serum lipase levels is recommended. 3. Again seen are 2 small fluid collections identified in the regions of pancreatic necrosis. These have decreased in size from 09/22/2016 and remain typical for small pseudocysts. 4. The splenic vein is patent. The pancreatic duct is normal in caliber. 5. There is nonspecific wall thickening and hyperemia involving the common bile duct. This is likely related to recent surgery. Clinical correlation will be required. 6. Hepatomegaly and hepatic steatosis. MRCP: 1. Incomplete examination. The patient could not finish the study. 2. The gallbladder is surgically absent. No fluid collection is seen in the gallbladder fossa. 3. There is mild intrahepatic biliary ductal dilatation. This is nonspecific status post cholecystectomy. 4. The common bile duct measures up to 7 mm. There is questionable material within the distal common bile duct. Although this could represent artifact, choledocholithiasis is not excluded. 5. Again seen are changes from necrotizing pancreatitis. This was better characterized on today's CT scan. 6. Hepatomegaly and hepatic steatosis. Medical Emergencies . Who to Call and When: Medical Emergencies: If at any time you feel your situation is an emergency, please call 911 immediately. . Non-Emergent Contact Non-Emergency issues call your: Primary Care Provider, [employer] . . "Provider Documentation" section prepared by Lu Linares. VTE Core Measure Inpt VTE Proph given/why not?: Jose Ledezma, SANIYA's
--- NOTE | 2016-10-14 12:03 | Discharge Summary ---
Discharge Summary Date of Service Oct 14, 2016. (Alka. Linares MD) Discharge Summary Admission Date: Oct 13, 2016 at 06:35 Discharge Date: Oct 14, 2016 Discharge Disposition: Home Principal Diagnosis: Choledocolithiasis (Alka. Linares MD) Medication Reconciliation Continued Medications: Amlodipine (Norvasc) 5 Mg Tab 5 MG PO QAM, TAB Ibuprofen (Ibuprofen) 400 Mg Tab 400 MG PO Q4 PRN for Pain Pantoprazole (Protonix) 40 Mg Tab 40 MG PO QAM, #30 TAB Discharge Exam Review of Systems: Constitutional: No chills, No fever ENT: + sore throat Respiratory: + cough, + sputum, No shortness of breath Cardiovascular: No chest pain, No edema, No palpitations Abdomen: + diarrhea, No GI bleeding, No nausea, No pain, No vomiting Genitourinary - Male: No dysuria, No hematuria Integumentary: No itch, No rash Physical Exam: General Appearance: WD/WN, no apparent distress Eyes: normal inspection ENT: hearing grossly normal, pharynx normal Neck: supple, no adenopathy Respiratory/Chest: lungs clear, normal breath sounds, no respiratory distress, no accessory muscle use Cardiovascular: regular rate, rhythm, no murmur, normal peripheral pulses Abdomen / GI: normal bowel sounds, non tender, soft Extremities: no calf tenderness, no pedal edema 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: alert, normal mood/affect, oriented x 3 Skin: normal color, warm/dry, no rash (Alka. Linares MD) Hospital Course 61 year old male admitted to hospital with severe epigastric pain 10 days post cholecystectomy on a background of necrotizing pancreatitis. Empiric antibiotics cipro/metronidazole were commenced, and symptoms were managed with Zofran and analgesics in the ED. Initial lab investigations showed elevated bilirubin, AST and ALT levels. Imaging done (CT Abdo/pelvis and MRCP) revealed changes consistent with recent surgery and previous pancreatitis. Additionally a filling defect was found. As such ERCP procedure was performed to further investigate whether this filling defect was artifact or secondary to post-surgical complication. During the ERCP, a filling defect consistent with a stone was seen on the cholangiogram. A sphincterectomy was performed and the biliary tree was swept, Choledocolithiasis was found and removed. Post-procedure, there was rapid improvement in symptoms. Recheck of labs showed that the liver functioning was improved. On discharge, the antibiotics were discontinued and Tylenol or Ibuprofen was recommended for post-procedural discomfort. Follow up with GI, Dr. Gama was recommended in one week with repeat liver function tests to ensure that they have normalized. Patient was advised to seek medical care sooner if he developed a recurrence of pain symptoms, fever, vomiting, changes in skin/urine/stool color, or if there are any new concerns arose. Total Time Spent: Less than 30 minutes This includes examination of the patient, discharge planning, medication reconciliation, and communication with other providers. (Alka. Linares MD) Resident Physician Supervision Note: I was present with Dr. Linares during the history and exam. I discussed the case with the resident and agree with the findings and plan as documented in the note. The discharge took less than 30 minutes to complete. Documented By: Enoc Power Total Time Spent: Less than 30 minutes (Enoc Power.,D.O.) Discharge Instructions Please refer to the electronic Patient Visit Report (Discharge Instructions) for additional information. (Alka. Linares MD)
[2016-10-14 14:05] VITALS: BP 118/72; PULSE 62; TEMP 36.7; O2SAT 95
[2016-10-15] MEDS ORDERED: PANTOprazole SOD 40 MG TAB PO SCH (08:00)
== END 2016-10-14 14:40 | disposition home or self-care (01) | DRG 444 ==
LOC: ENRESERVTM → ENRESERVDT → C.EDB 20:08 → C.MS4W 10-13 06:35
PROVIDERS: ADMIT Student in an Organized Health Care Education/Training Program; ATTEND Family Medicine
PROC: 0FC98ZZ Extirpation of Matter from Common Bile Duct, Via Natural or Artificial Opening Endoscopic (ICD-10-PCS; principal; 2016-10-13 10:00)
DX: K80.51 Calculus of bile duct without cholangitis or cholecystitis with obstruction (principal); K85.11 Biliary acute pancreatitis with uninfected necrosis; K83.9 Disease of biliary tract, unspecified; K21.9 Gastro-esophageal reflux disease without esophagitis; E78.00 Pure hypercholesterolemia, unspecified; E78.5 Hyperlipidemia, unspecified; I10 Essential (primary) hypertension; Z90.49 Acquired absence of other specified parts of digestive tract; Z98.890 Other specified postprocedural states; Z91.040 Latex allergy status; Z87.891 Personal history of nicotine dependence; Z79.899 Other long term (current) drug therapy

== ENCOUNTER → 2017-09-14 | Outpatient (CLI) | payer BC ==
[~2017-09-14] MED LIST changes: +MTR/400 PO
[2017-09-14 13:07] LABS: BLOOD UREA NITROGEN 15 mg/dl (7-18); CALCIUM 9.1 mg/dl (8.5-10.1); CARBON DIOXIDE 26 mmol/L (21-32); CREATININE 1.02 mg/dl (0.60-1.40); GLUCOSE 93 mg/dl (70-99); POTASSIUM 3.9 mmol/L (3.5-5.1); SODIUM 139 mmol/L (136-145)
[2017-09-14 13:11] LABS: CHOLESTEROL 229 mg/dl (0-200); LDL CHOLESTEROL CALCULATED 159 mg/dl
== END | disposition home or self-care (01) ==
LOC: C.LABPVFM 07:50
PROVIDERS: ATTEND Nurse Practitioner
DX: E78.5 Hyperlipidemia, unspecified (principal)